=== PATIENT | male | born 1935 | race Caucasian/White ===

== ENCOUNTER 2017-08-27 10:16 | Inpatient (IN) | payer MEDICARE ==
[~2017-08-27] VITALS: Ht 182.9 cm; Wt 81.6 kg
[2017-08-27] VITALS (14 sets, daily range): BP systolic 85–137; BP diastolic 53–95
[2017-08-27] MEDS: ceFAZolin sod 1 GM in D5W 55 ML IVPB SCH ×2 (06:00→14:00)
[2017-08-27] MEDS ORDERED: NKM (12:47)
[2017-08-27] MEDS ORDERED: LR 1000ml 1,000 ML IVLG SCH (13:47)
--- NOTE | 2017-08-27 13:47 | Anethesia Preoperative Eval ---
Anesthesia Pre-op PMH/ROS General Date of Evaluation: Aug 27, 2017 Time of Evaluation: 14:11 Anesthesiologist: Tay ASA Score: ASA 3 Mallampati Score Class I : Soft palate, uvula, fauces, pillars visible Class II: Soft palate, uvula, fauces visible Class III: Soft palate, base of uvula visible Class IV: Only hard plate visible Mallampati Classification: Class II Surgeon: Lisa Diagnosis: Prostate CA Surgical Procedure: TURP, Lithotripsy Anesthesia History: none Family History: no anesthesia problems Allergies: Coded Allergies: No Known Allergies (Unverified , 08/27/17) Medications: see eMAR Past Medical History Cardiovascular: Reports: HTN, arrhythmia - Bradycardia Gastrointestinal/Genitourinary: Reports: other - Prostate CA, Renolithiasis Anesthesia Pre-op Phys. Exam Physician Exam Last Vital Signs Date Time Temp Pulse Resp B/P (MAP) Pulse Ox O2 Delivery O2 Flow Rate FiO2 08/27/17 12:49 97.0 39 18 136/59 98 Room Air Constitutional: NAD Neurologic: CN 2-12 intact Cardiovascular: RRR Respiratory: CTA Gastrointestinal: S/NT/ND Airway Exam Mallampati Score: Class II MO: full ROM: full Teeth: missing, intact, other - States None Loose Dentures: lower Anesthesia Pre-op A/P Risk Assessment & Plan Assessment: ASA 3 Plan: GA, BIS, GlideScope Status Change Before Surgery: No Pre-Antibiotics Dru Grams Ancef, 80 Mg Gentamicin IV Given Within 1 Hr of Incision: Yes Time Given: 14:26 Paulino Cross MD Aug 27, 2017 13:47
--- NOTE | 2017-08-27 13:49 | Immediate Post-Op Evaluation ---
Immediate Post-Op Evalulation Immediate Post-Op Evalulation Procedure: TURP, Lithotripsy Date of Evaluation: Aug 27, 2017 IV Fluids: 1300 LR Blood Products: 0 Estimated Blood Loss: 500 Urinary Output: 1400 Blood Pressure Systolic: 98 Blood Pressure Diastolic: 40 Pulse Rate: 62 Respiratory Rate: 16 O2 Sat by Pulse Oximetry: 98 Temperature (Fahrenheit): 98.2 Pain Score (1-10): 2 Nausea: No Vomiting: No Complications 0 Patient Status: awake, reacts, patent, extubated, none Hydration Status: adequate Dru Grams Ancef, 80 Mg Gentamicin IV Given Within 1 Hr of Incision: Yes Time Given: 14:26 Paulino Cross MD Aug 27, 2017 13:49
[2017-08-27] MEDS ORDERED: Sugammadex Sodium 200mg/2ml vial IV ONE (14:00)
[2017-08-27] MEDS ORDERED: Lidocaine 1% MPF 10mg/ml 5ml ONE (14:00)
[2017-08-27] MEDS ORDERED: oxyCODONE HCL/Acetaminophen 5/325mg ORAL PRN (14:00)
[2017-08-27] MEDS ORDERED: LR 1000ml ONE (14:00)
[2017-08-27] MEDS ORDERED: NS Irrig 4000ml IRRIG ONE (14:00)
[2017-08-27] MEDS ORDERED: Hydromorphone 0.5mg/0.5ml inj IVP PRN ×2 (14:00→21:00)
[2017-08-27] MEDS ORDERED: Dexamethasone 4mg/ml vial ONE (14:00)
[2017-08-27] MEDS ORDERED: Zemuron 50mg/5ml Inj IV ONE (14:00)
[2017-08-27] MEDS ORDERED: Norco 7.5mg/325mg tab ORAL PRN (14:00)
[2017-08-27] MEDS ORDERED: Labetalol 5mg/ml 20ml vial IV PRN (14:00)
[2017-08-27] MEDS ORDERED: fentaNYL 100 mcg/2 mL IV ONE (14:00)
[2017-08-27] MEDS ORDERED: NS Irrig 2000ml IRRIG ONE (14:00)
[2017-08-27] MEDS ORDERED: Glycopyrrolate 0.2mg/ml 1ml Vial ONE (14:00)
[2017-08-27] MEDS ORDERED: DiphenhydrAMINE 50mg/ml Inj IVP PRN (14:00)
[2017-08-27] MEDS ORDERED: Acetaminophen (Non formulary) 100 ML IV ONE (14:00)
[2017-08-27] MEDS ORDERED: Metoclopramide 10mg/2ml Inj IVP PRN (14:00)
[2017-08-27] MEDS ORDERED: Midazolam 2mg/2ml Inj ONE (14:00)
[2017-08-27] MEDS ORDERED: fentaNYL 100 mcg/2 mL IV PRN (14:00)
[2017-08-27] MEDS ORDERED: Norco 5mg/325mg tab ORAL PRN ×2 (14:00→21:00)
[2017-08-27] MEDS ORDERED: Atropine Inj 1mg/10ml Syr IV PRN (14:00)
[2017-08-27] MEDS ORDERED: Ketorolac 30mg Inj IV PRN ×2 (14:00)
[2017-08-27] MEDS ORDERED: Propofol 200mg/20ml IV ONE (14:00)
[2017-08-27] MEDS ORDERED: Midazolam 2mg/2ml Inj IVP PRN (14:00)
[2017-08-27] MEDS ORDERED: LORazepam Inj 2mg/ml 1ml IV PRN (14:00)
--- NOTE | 2017-08-27 14:22 | Pre-Procedure Note/Attestation ---
Pre-Procedure Note/Attestation Complete Prior to Procedure Planned Procedure: not applicable Procedure Narrative: TURP CYSTO LOPAXY Indications for Procedure Pre-Operative Diagnosis: bladder stone BPH Attestation I attest that I discussed the nature of the procedure; its benefits; risks and complications; and alternatives (and the risks and benefits of such alternatives ), prior to the procedure, with the patient (or the patient's legal medical field representative). I attest that, if there was a reasonable possibility of needing a blood transfusion, the patient (or the patient's legal medical field representative) was given the [facility] standardized written summary, pursuant to the Faizan [place] Blood Safety Act ([place] Health and Safety Code # 1645, as amended). I attest that I re-evaluated the patient just prior to the surgery and that there has been no change in the patient's H&P, except as documented below: Jesus Manuel Gonzalez MD Aug 27, 2017 14:22
--- NOTE | 2017-08-27 14:23 | Brief Operative Note ---
Immediate Post Operative Note Operative Note Pre-op Diagnosis: bladder stone BPH Procedure: TURP Cystolopaxy Post-op Diagnosis: same Post-op Diagnosis: same as pre-op Surgeon: Capo Gonzalez Anesthesia: general Specimen: yes Complications: none Condition: stable Fluids: 1000 Estimated Blood Loss: minimal Implant(s) used?: No Jesus Manuel Gnozalez MD Aug 27, 2017 14:23
[2017-08-27 19:45] LABS: MEAN CORPUSCULAR HEMOGLOBIN 30.3 PG (27.0-31.0); MEAN CORPUSCULAR HGB CONC 30.6 G/DL (32.0-36.0); MEAN CORPUSCULAR VOLUME 99 FL (80-99); MEAN PLATELET VOLUME 9.1 FL (6.5-10.1); PLATELET COUNT 254 K/UL (150-450); RED BLOOD COUNT 3.94 M/UL (4.70-6.10); RED CELL DISTRIBUTION WIDTH 13.1 % (11.6-14.8)
[2017-08-27 19:47] LABS: ANION GAP 10 mmol/L (5-15); CALCIUM 8.4 MG/DL (8.5-10.1); CARBON DIOXIDE 24 MMOL/L (21-32); CHLORIDE 106 MMOL/L (98-107); CREATININE 1.1 MG/DL (0.55-1.30); POTASSIUM 3.9 MMOL/L (3.5-5.1); SODIUM 140 MMOL/L (136-145)
[2017-08-27 21:35] LABS: ANISOCYTOSIS 1+; BAND NEUTROPHILS % (MANUAL) 0 % (0-8); BASOPHILS % (MANUAL) 0 % (0-2); EOSINOPHILS % (MANUAL) 0 % (0-3); HYPOCHROMASIA 1+; LYMPHOCYTES % (MANUAL) 7 % (20-45); NEUTROPHILS % (MANUAL) 89 % (45-75); PLATELET ESTIMATE ADEQUATE; PLATELET MORPHOLOGY NORMAL; TOTAL CELLS COUNTED 100
[2017-08-27] MEDS ORDERED: ceFAZolin sod 2 GM in D5W 110 ML IV SCH (22:00)
[2017-08-28] MEDS ORDERED: Piperacillin/Tazobactam 3.375 GM in D5W 110 ML IVPB SCH ×2
[2017-08-28] MEDS: Zoysn 3.37gm in D5W 55ml IVPB SCH ×4 (00:12→22:00)
[2017-08-28] MEDS: D5 1/2NS w/KCl 20mEq 1,000 ML IV SCH ×2 (00:13→08:00)
[2017-08-28] MEDS: Vancomycin 1gm in D5W 275ml IVPB SCH ×3 (00:14→22:06)
[2017-08-28 00:30] VITALS: BP 120/71
[2017-08-28 04:00] VITALS: BP 104/62
[2017-08-28 09:00] VITALS: BP 106/44
[2017-08-28 10:40] LABS: MEAN CORPUSCULAR HEMOGLOBIN 32.4 PG (27.0-31.0); MEAN CORPUSCULAR HGB CONC 33.2 G/DL (32.0-36.0); MEAN CORPUSCULAR VOLUME 97 FL (80-99); MEAN PLATELET VOLUME 9.3 FL (6.5-10.1); PLATELET COUNT 239 K/UL (150-450); RED BLOOD COUNT 3.37 M/UL (4.70-6.10); RED CELL DISTRIBUTION WIDTH 12.7 % (11.6-14.8); WHITE BLOOD COUNT 15.4 K/UL (4.8-10.8)
[2017-08-28 10:52] LABS: ANION GAP 8 mmol/L (5-15); CALCIUM 8.3 MG/DL (8.5-10.1); CARBON DIOXIDE 26 MMOL/L (21-32); CHLORIDE 101 MMOL/L (98-107); CREATININE 1.1 MG/DL (0.55-1.30); POTASSIUM 4.2 MMOL/L (3.5-5.1); SODIUM 135 MMOL/L (136-145)
[2017-08-28 11:21] LABS: BAND NEUTROPHILS % (MANUAL) 2 % (0-8); LYMPHOCYTES % (MANUAL) 8 % (20-45); NEUTROPHILS % (MANUAL) 85 % (45-75); TOTAL CELLS COUNTED 100
[2017-08-28 11:22] LABS: BASOPHILS % (MANUAL) 0 % (0-2); EOSINOPHILS % (MANUAL) 0 % (0-3); PLATELET ESTIMATE ADEQUATE; PLATELET MORPHOLOGY NORMAL
[2017-08-28 12:00] VITALS: BP 97/59
--- NOTE | 2017-08-28 12:38 | 48 Hour Post Anesthesia Eval ---
Post Anesthesia Evaluation Procedure: TURP, Lithotripsy Date of Evaluation: Aug 28, 2017 Time of Evaluation: 12:35 Blood Pressure Systolic: 97 0: 59 Pulse Rate: 62 Respiratory Rate: 18 Temperature (Fahrenheit): 98.2 O2 Sat by Pulse Oximetry: 99 Airway: patent Nausea: No Vomiting: No Pain Intensity: 1 Hydration Status: adequate Cardiopulmonary Status: Stable Mental Status/LOC: patient returned to baseline Follow-up Care/Observations: As per surgery Post-Anesthesia Complications: No anesthetic complication Follow-up care needed: N/A ARRON FRAZIER M.D. Aug 28, 2017 12:38
[2017-08-28 16:00] VITALS: BP 98/57
[2017-08-28] MEDS: Docusate 100mg cap ORAL SCH (17:33)
--- NOTE | 2017-08-28 17:49 | Diagnostic Imaging Report ---
INDICATION: Status post cystoscopy and lithotripsy. History of prostate carcinoma TECHNIQUE: No oral contrast, per urogram protocol. Precontrast spiral acquisition obtained through the abdomen and pelvis. IV administration nonionic contrast. Multiphasic spiral acquisitions obtained through the chest, abdomen, and pelvis Multiplanar reconstructions were generated. Total dose length product 3616.07 mGycm. CTDIvol(s) 17.08,16.32,17.31,17.08 mGy. Radiation dose was minimized using automated exposure control COMPARISON: none FINDINGS: Urinary tract: No renal calculi are seen on either side. There is bilateral nonspecific perinephric fat stranding. Subcentimeter low-attenuation renal lesions are seen on the left which are too small to characterize. No definite solid renal mass demonstrated. The renal collecting systems are unremarkable. The ureters are unremarkable. The bladder is nondistended, contains a very large Orta balloon. The bladder kumar appear thickened, although this could in part be an artifact of under distention. A crescentic focus of gas seen within the anterior inferior bladder wall. This measures 3 cm transverse by 2.4 cm craniocaudad by approximately 3 mm thick. There is a calcific density immediately adjacent to the shaft of the Orta catheter anteriorly and to the left, which measures 13 mm long axis dimension. It is unclear whether this is within the bladder lumen, bladder wall, or prostate parenchyma, although suspect that it is trapped within the bladder mucosal folds. Immediately anterior to the shaft of the Orta balloon at the prostate/bladder junction, there is a very subtle area of slightly lower attenuation. There is some infiltration of the perivesical fat at the anterior aspect of the bladder. The prostate is enlarged, measures 5.8 cm AP by 5.9 cm transverse by approximately 6.5 cm craniocaudad. The seminal vesicles appear unremarkable. There is bilateral pelvic lymphadenopathy. Largest left iliac chain node measures 2.4 cm in diameter. There is a right iliac chain node which measures 23 mm in diameter, and is hypoattenuating, suggestive of necrosis. No retroperitoneal mass or adenopathy demonstrated. Other abdomen and pelvis: The liver demonstrates a 17 mm cyst in segment one. It also demonstrates a few subcentimeter low-attenuation lesions which are too small to characterize. No definite solid liver mass. The gallbladder, bile ducts are unremarkable. The pancreas demonstrates a tiny 5 mm low-attenuation lesion in the pancreatic head, image 62 series 11, which may represent the terminus of the common bile duct but this cannot be stated for certain. The spleen, adrenals are unremarkable The appendix is not definitely identified, but no findings to suggest acute appendicitis are demonstrated. There is colonic diverticulosis. No evidence of diverticulitis. No small bowel distention. No free or loculated intraperitoneal air or fluid is evident. Distal esophagus, stomach, duodenum are unremarkable. Chest: 4 mm lesion is seen in the medial right middle lobe and a 2 mm lesion is seen in the lateral right middle lobe, both image 12 series 7. 2 pleural based masses are seen along the right major fissure, larger measuring 9 mm, adjacent smaller measuring 5 mm. Focus of pleural thickening seen posteromedially in the left upper lobe, image 10 series 9. 8 mm nodule seen in the posteromedial left upper lobe abutting the mediastinum, series 9 image 35. Ill-defined 7 mm nodule seen in the anterior inferior left lower lobe, image 71 series 9. Lobulated 12 mm nodule posterior inferior left lower lobe, image 69 series 9. There is some posterior compressive atelectasis at the left lung base, as well as trace left pleural fluid. The heart is upper limits of normal in size. The ascending thoracic aortic is ectatic, measuring 4.3 cm in diameter. There is mediastinal lymphadenopathy, with 2 adjacent enlarged subcarinal nodes, largest measuring 2.1 cm in diameter, both demonstrating low attenuation centers suggestive of necrosis. Esophagus is unremarkable. The thyroid is unremarkable. No axillary or chest wall mass or adenopathy demonstrated. There is a 6 mm other subcutaneous nodule in the right chest wall, image 56 series 8, which is at the level of the nipple, probably represents a lymph node. No definite osteolytic or osteoblastic lesion demonstrated. There is degenerative spondylosis. No acute bony abnormality demonstrated. IMPRESSION: Abnormal bladder as described, with wall thickening, 13 mm calcification, and an unusual air collection in the anterior bladder wall. There is a Orta catheter with a large balloon decompressing the bladder. The gas collection may be residua of recent cystoscopic intervention. Correlation with surgical findings and procedure recommended. There is also a 13 mm calcification which is either in the bladder lumen, in the urethral lumen, or within the bladder wall. Likewise recommend correlation with cystoscopic findings Subtle focal area of low attenuation anterior to the Orta shaft at the base of the bladder. Of uncertain significance. Possibility of early intramural abscess should be considered Enlarged prostate Nonspecific infiltration of the anterior perivesical fat. Could indicate inflammation or tumor Pelvic lymphadenopathy. Low-attenuation right iliac chain node is likely necrotic No significant renal abnormality. Subcentimeter low-attenuation left renal lesions most likely represent benign cortical cysts, and no further follow-up necessary 5 mm low-attenuation lesion in the pancreatic head. Suspect that this represents the terminus of the common bile duct, but a pancreatic cystic lesion cannot be excluded. Consider follow-up pancreatic MRI if clinically indicated Caudate lobe liver cyst. Subcentimeter low-attenuation liver lesions, too small to characterize, most likely benign cysts or bile hamartomas. No further follow-up necessary Multiple lung nodules as detailed above. As most of these appear to be related to the pleura, these may all be postinflammatory, but neoplastic etiology of many of these cannot be ruled out Mediastinal lymphadenopathy, possibly neoplastic. 2 largest nodes in the subcarinal region have low-attenuation centers suggestive of necrosis Degenerative spondylosis The CT scanner at [facility] is accredited by the [employer] and the scans are performed using protocols designed to limit radiation exposure to as low as reasonably achievable to attain images of sufficient resolution adequate for diagnostic evaluation.
[2017-08-28 21:03] VITALS: BP 100/55
--- NOTE | 2017-08-28 23:47 | Operative Note - Dictated ---
DATE OF OPERATION: 08/27/2017 PREOPERATIVE DIAGNOSES: 1. Urinary retention. 2. Bladder stones. 3. Recurrent urinary tract infection. 4. Prostate cancer. POSTOPERATIVE DIAGNOSES: 1. Urinary retention. 2. Bladder stones. 3. Recurrent urinary tract infection. 4. Prostate cancer. OPERATIONS: Transurethral resection of the prostate and cystolitholapaxy of the large bladder stones. SURGEON: Jesus Manuel Gonzalez M.D. ANESTHESIA: General. FINDINGS: Two large bladder stones occupying the whole surface of the bladder and increased lesion in the lateral lobes of the prostate. INDICATIONS FOR SURGERY: The patient was referred to me for urinary retention, hematuria, and pain. He passed voiding trial. However, during the cystoscopy, I found that he has 2 large bladder stones and severely enlarged prostate. His PSA was in 200s and he was found to have bony lytic lesions on the x-rays suggesting there was also a history of prostate cancer. Treatment options were explained to him in great length including all potential complications. He understands the strategy, that we will remove the bladder stones first and do TURP diagnostic procedure also done to help him urinate better. He will follow up with the diagnosis of prostate cancer radiation. The patient understands the nature of the procedure and signed a consent. DESCRIPTION OF PROCEDURE: The patient was brought to the operating room, placed in lithotomy position, and prepped and draped in standard fashion. Under general anesthesia, cystoscope 22-Khmer was introduced and using 1000 micron fiber, stones were fragmented into small pieces within 2.5 hours of total time of laser, that is how big the stones were. Small stone fragments after that were removed with Jagruti evacuator for full examination. After that, using resectoscope and bipolar TURP, the prostate was resected approximately 70% all the way to the capsule region and the lateral lobes all the way to the verumontanum. All the chips were evacuated. The bladder was carefully inspected. There was no evidence of residual stones or tumor. The patient tolerated the procedure well. A Orta catheter was placed. CBI was started. Sponge count and instrument count was correct. Jesus Manuel Gonzalez M.D. DR: MARIO ALBERTO JOB#: [id number] CC:
[2017-08-29 00:17] VITALS: BP 106/61
[2017-08-29] MEDS: Zoysn 3.37gm in D5W 55ml IVPB SCH ×3 (01:09→14:39)
[2017-08-29 04:43] VITALS: BP 109/61
[2017-08-29 08:17] VITALS: BP 114/62
[2017-08-29] MEDS: Docusate 100mg cap ORAL SCH ×2 (08:55→18:00)
[2017-08-29 10:37] LABS: BASOPHILS % (AUTO) 0.6 % (0.0-2.0); EOSINOPHILS % (AUTO) 1.2 % (0.0-3.0); LYMPHOCYTES % (AUTO) 9.9 % (20.0-45.0); MEAN CORPUSCULAR HEMOGLOBIN 31.2 PG (27.0-31.0); MEAN CORPUSCULAR HGB CONC 31.8 G/DL (32.0-36.0); MEAN CORPUSCULAR VOLUME 98 FL (80-99); MEAN PLATELET VOLUME 9.9 FL (6.5-10.1); MONOCYTES % (AUTO) 9.4 % (1.0-10.0); NEUTROPHILS % (AUTO) 78.9 % (45.0-75.0); PLATELET COUNT 271 K/UL (150-450); RED BLOOD COUNT 3.58 M/UL (4.70-6.10); RED CELL DISTRIBUTION WIDTH 13.3 % (11.6-14.8); WHITE BLOOD COUNT 13.6 K/UL (4.8-10.8)
[2017-08-29] MEDS: Vancomycin 1gm in D5W 275ml IVPB SCH (11:21)
[2017-08-29 11:56] VITALS: BP 90/50
[2017-08-29] MEDS ORDERED: Bisacodyl EC 5mg tab ORAL PRN (13:45)
[2017-08-29] MEDS ORDERED: NS Irrig 4000ml IRRIG ONE ×2 (15:11)
[2017-08-29] MEDS ORDERED: Tubing IV Secondary IV ONE (15:11)
[2017-08-29 16:00] VITALS: BP 99/54
--- NOTE | 2017-08-29 17:07 | Cardiology Report ---
APPROVED REPORT EKG Measurement Heart [id number] MD [id number] Marked sinus bradycardia Abnormal ECG
[2017-08-29] MEDS: Levofloxacin 500mg tab ORAL SCH (20:00)
[2017-08-30 07:05] LABS: BASOPHILS % (AUTO) 0.8 % (0.0-2.0); EOSINOPHILS % (AUTO) 2.2 % (0.0-3.0); LYMPHOCYTES % (AUTO) 11.9 % (20.0-45.0); MEAN CORPUSCULAR HEMOGLOBIN 31.8 PG (27.0-31.0); MEAN CORPUSCULAR HGB CONC 32.6 G/DL (32.0-36.0); MEAN CORPUSCULAR VOLUME 98 FL (80-99); MEAN PLATELET VOLUME 9.6 FL (6.5-10.1); MONOCYTES % (AUTO) 9.1 % (1.0-10.0); NEUTROPHILS % (AUTO) 76.1 % (45.0-75.0); PLATELET COUNT 265 K/UL (150-450); RED BLOOD COUNT 3.29 M/UL (4.70-6.10); RED CELL DISTRIBUTION WIDTH 13.3 % (11.6-14.8); WHITE BLOOD COUNT 9.5 K/UL (4.8-10.8)
[2017-08-30 07:39] LABS: ANION GAP 8 mmol/L (5-15); CALCIUM 9.2 MG/DL (8.5-10.1); CARBON DIOXIDE 28 MMOL/L (21-32); CHLORIDE 102 MMOL/L (98-107); CREATININE 1.1 MG/DL (0.55-1.30); POTASSIUM 3.4 MMOL/L (3.5-5.1); SODIUM 138 MMOL/L (136-145)
[2017-08-30 08:00] VITALS: BP 114/74
[2017-08-30] MEDS: Docusate 100mg cap ORAL SCH (08:54)
[2017-08-30] MEDS: Levofloxacin 500mg tab ORAL SCH (08:54)
--- NOTE | 2017-08-30 10:15 | Diagnostic Imaging Report ---
Indication: Prostate carcinoma Technique: Administration of 99m technetium MDP was delayed due to consent issues. At the time of maximum administration, the original dose had isypbzq33.5 mCi. According to the technologist, an additional vial of technetium MDP was needed to achieve the proper dose. However, instead of an additional dose of MDP, a 7 mCi dose of 99M technetium was inadvertently administered instead. Whole-body and spot images were then obtained Comparison: Reference made to CT scan dated 08/28/2017 Findings: Tracer activity from the mebrofenin administration is seen in the gallbladder, small bowel, and large bowel. A sizable focus of increased activity is seen in the left anterolateral sixth rib. In retrospect, this is visible as an area of sclerosis on recent CT scan. A few scattered foci of increased activity are seen in other ribs, mostly on the right with bilateral, equivocally evident as subtle areas of sclerosis on the recent CT scan. Multiple foci of increased activity are seen in numerous pedicles of the thoracic and lumbar spine, equivocally visible in some cases as subtle foci of sclerosis within the pedicles on the recent CT scan. Foci of increased activity are seen in the pelvis, the largest in the left acetabulum and posterior ischium, and other scattered foci bilaterally. These are not visible on the recent CT, even in retrospect. A single small focus of increased activity is seen in the left proximal femur. A focus of increased activity is seen in the right humeral neck, excluded from the recent imaging volume on CT. Other bilateral symmetric foci of increased activity within the shoulders are probably on the basis of degenerative change. A few small foci of increased activity are seen in the region of the maxilla and mandible. Suspect these are on the basis of dental disease Normal renal and bladder activity are demonstrated. Impression: Multiple foci of osseous activity, as described, consistent with metastatic prostate carcinoma Note activity within gallbladder, large and small bowel, due to inadvertent administration of a dose of mebrofenin. The misadministration was discussed with the patient's attending physician, with the patient, and an incident report was filed Findings were discussed by phone with Dr. Gonzalez
[2017-08-30] MEDS ORDERED: COLACE100 MG ORAL (11:14)
[2017-08-30] MEDS ORDERED: LEVAQUIN250 M1 ORAL (11:14)
[2017-08-30] MEDS ORDERED: ACETAMINOPHEN-1 EAC1 ORAL (11:15)
[2017-08-30] MEDS ORDERED: NS Irrig 4000ml IRRIG ONE (11:39)
--- NOTE | 2017-08-30 15:28 | Discharge Summary ---
Discharge Summary Hospital Course Date of Admission Aug 27, 2017 at 11:55 Date of Discharge Aug 30, 2017 at 11:40 Admitting Diagnosis HPI Nadeen Concepcion is a 82 year old male who was admitted on Aug 27, 2017 at 11:55 for PAIN Hospital Course [id number] Discharge Discharge Disposition Patient was discharged to Home (01) Discharge Diagnoses: Harriet Avendaño NP Aug 30, 2017 15:28
--- NOTE | 2017-08-31 08:32 | Discharge Summary 2 SIG ---
DATE OF ADMISSION: 08/27/2017 DATE OF DISCHARGE: 08/30/2017 BRIEF HOSPITAL COURSE: The patient is an 82-year-old male with history of prostate cancer and recurrent urinary tract infection, who was having urinary retention and has bladder stones, was referred to urologist for evaluation of urinary retention, hematuria, and pain. He passed voiding trial, however, during the cystoscopy, he was found to have two large bladder stones and severely enlarged prostate. PSA was in the 200s. He was found to have bony lytic lesions in the x-ray suggestive of history of prostate cancer. He was admitted on 08/27/2017 and underwent TURP and cystolitholapaxy of large bladder stones. He tolerated procedure well. Postoperatively, Orta catheter was inserted and continuous bladder irrigation was done. He was admitted on medical/surgical and was given Zosyn and vancomycin. He was encouraged use of incentive spirometry and underwent physical therapy. Chest CT done showed abnormal bladder as described with wall thickening, 13 mm calcification, and an unusual air collection in the anterior bladder wall. Orta catheter with a large balloon decompressing the bladder, thus collection may also be residual of recent cystoscopic intervention. Bone scan was done, which revealed multiple foci of osseous activity consistent with metastatic prostate carcinoma. The patient was eventually cleared for discharge home. To follow-up with urology for removal of stent. FINAL DIAGNOSES: 1. Urinary retention due to bladder stones. 2. Recurrent urinary tract infection. 3. Prostate cancer with mets. DISCHARGE DISPOSITION: The patient was discharged home. DISCHARGE MEDICATIONS: Refer to medication list. Continue with oral levofloxacin 250 mg daily for one week. Continue with acetaminophen with codeine, Tylenol No. 3, and Colace p.r.n. DISCHARGE INSTRUCTIONS: Follow up with PMD in a week for removal of stent. Jesus Manuel Gonzalez M.D. I have been assigned to dictate discharge summary on this account and I was not involved in the patient's management. Harriet Avendaño N.P. DR: LILI JOB#: [id number] CC: ISREAL
== END 2017-08-30 11:40 | disposition home or self-care (01) | DRG 666 ==
LOC: SDSOVERFLO 11:55 → 3E 17:54
PROC: 0VB08ZZ Excision of Prostate, Via Natural or Artificial Opening Endoscopic (ICD-10-PCS; principal; 2017-08-27 14:00)
PROC: 0TCB8ZZ Extirpation of Matter from Bladder, Via Natural or Artificial Opening Endoscopic (ICD-10-PCS; principal; 2017-08-27 14:00)
DX: N21.0 Calculus in bladder (principal); N39.0 Urinary tract infection, site not specified; C79.51 Secondary malignant neoplasm of bone; C61 Malignant neoplasm of prostate; I44.1 Atrioventricular block, second degree; N13.8 Other obstructive and reflux uropathy; R33.8 Other retention of urine; N40.1 Benign prostatic hyperplasia with lower urinary tract symptoms; F17.200 Nicotine dependence, unspecified, uncomplicated
CPT/HCPCS: 36415; 71260; 74177; 78306; 80048; 80202; 85007; 85025; 93005; 94003; 94150; J2250; J2405; J8499

== ENCOUNTER 2017-08-31 19:39 | Emergency (ER) | payer SELFPAY ==
[~2017-08-31] VITALS: Ht 182.9 cm; Wt 81.6 kg
[~2017-08-31 19:39] MED LIST: ACETAMINOPHEN-1 EAC1 ORAL; COLACE100 MG ORAL; LEVAQUIN250 M1 ORAL; NKM
[2017-08-31 20:05] VITALS: BP 110/68
[2017-08-31 20:14] VITALS: BP 112/69
[2017-08-31 20:45] LABS: APPEARANCE,URINE CLOUDY; KETONES,URINE 1+ (NEGATIVE); LEUKOCYTE ESTERASE ,URINE 2+ (NEGATIVE); NITRITE,URINE NEGATIVE (NEGATIVE); PH,URINE 6 (4.5-8.0); PROTEIN,URINE 4+ (NEGATIVE); UROBILINOGEN,URINE NORMAL MG/DL (0.0-1.0)
[2017-08-31 20:53] LABS: BACTERIA,URINE MODERATE /HPF; RBC,URINE TNTC /HPF (0 - 0); SQUAMOUS EPITHELIAL CELL,UR OCCASIONAL /LPF (NONE/OCC)
--- NOTE | 2017-08-31 22:07 | Emergency Room Report ---
History of Present Illness General Chief Complaint: Male Urogenital Problems Source: Patient, Medical Record Present Illness HPI 82YOM walk-in with hematuria, asymptomatic, No associated abdominal pain, dysuria, vomiting, flank pain Recently had TURP by Dr Taylor, urologist Is supposed to be on levo/vanc/flomax but patient endorses non-compliance Allergies: Coded Allergies: No Known Allergies (Unverified , 08/27/17) Patient History Past Medical History: other - bph Past Surgical History: other - turp Pertinent Family History: none Social History: Denies: smoking, alcohol use, drug use Immunizations: UTD Reviewed Nursing Documentation: PMH: Agreed, PSxH: Agreed Nursing Documentation-PMH Hx Cardiac Problems: No - irregular heartbeat Hx Cancer: Yes Hx Gastrointestinal Problems: No Hx Neurological Problems: No Review of Systems All Other Systems: negative except mentioned in HPI Physical Exam Vital Signs Date Time Temp Pulse Resp B/P (MAP) Pulse Ox O2 Delivery O2 Flow Rate FiO2 08/31/17 19:47 98.1 74 18 105/63 98 08/31/17 20:05 Room Air Sp02 EP Interpretation: reviewed, normal General Appearance: normal inspection, well appearing, no apparent distress, alert, GCS 15, non-toxic Head: normocephalic, atraumatic Eyes: bilateral eye PERRL, bilateral eye EOMI ENT: normal ENT inspection, hearing grossly normal, normal pharynx, no angioedema, normal voice, TMs + canals normal, uvula midline, moist mucus membranes Neck: normal inspection, full range of motion, supple, thyroid normal, no meningismus, no bony tend Respiratory: normal inspection, lungs clear, normal breath sounds, no rhonchi, no respiratory distress, no retraction, no accessory muscle use, no wheezing, speaking full sentences Cardiovascular #1: regular rate, rhythm, no edema, no JVD, normal capillary refill Gastrointestinal: normal inspection, normal bowel sounds, non tender, soft, no mass, no peritonitis, non-distended, no guarding, no hernia, no pulsatile mass Genitourinary: no CVA tenderness Musculoskeletal: normal inspection, back normal, normal range of motion, no calf tenderness, pelvis stable, Willow's Sign negative Neurologic: normal inspection, alert, oriented x3, responsive, customer service engineer III-XII nml as tested, motor strength/tone normal, cerebellar normal, normal gait, speech normal Psychiatric: normal inspection, judgement/insight normal, mood/affect normal, no suicidal/homicidal ideation, no delusions Skin: normal inspection, normal color, no rash Lymphatic: normal inspection, no adenopathy Medical Decision Making Diagnostic Impression: Primary Impression: Abnormal urogenital findings Additional Impressions: Hematuria Qualified Codes: R31.9 - Hematuria, unspecified UTI (urinary tract infection) Qualified Codes: N30.01 - Acute cystitis with hematuria ER Course UA with hematuria and bacteria Dr. Taylor requested urine culture to be sent to check for sensitivity already on Levaquin and vancomycin Encouraged compliance Signs stable, afebrile Dr. Taylor saw patient in ER non-Septic appearing Discharge ER course: Patient has remained stable during ED stay. Patient is to be discharged to home. Patient is instructed to follow up with Dr Taylor as recommended Strict return precautions discussed with patient such as fever, chills, worsening/severe pain, nausea, vomiting, which may indicate severe illness. Patient verbalizes understanding and agrees with plan. Please note that this Emergency Department Report was dictated using [employer] technicians technology software, occasionally this can lead to erroneous entry secondary to interpretation by the dictation equipment Last Vital Signs Date Time Temp Pulse Resp B/P (MAP) Pulse Ox O2 Delivery O2 Flow Rate FiO2 08/31/17 20:14 98.1 89 16 112/69 98 Room Air Status: improved Disposition: HOME, SELF-CARE Condition: Improved Referrals: NON PHYSICIAN (PCP) Patient Instructions: Hematuria, Adult Additional Instructions: - Complete antibiotics at home as prescribed - Take flomax as recommended by ASCENCION Joyner M.D. Aug 31, 2017 22:07
== END 2017-08-31 20:14 | disposition home or self-care (01) ==
LOC: EMR 20:09
DX: N30.01 Acute cystitis with hematuria (principal); N40.0 Benign prostatic hyperplasia without lower urinary tract symptoms
CPT/HCPCS: 81003; 87086; 99283

== ENCOUNTER 2018-06-18 16:42 | Inpatient (IN) | payer MEDICARE ==
[~2018-06-18] VITALS: Ht 182.9 cm; Wt 74.8 kg
[2018-06-18 17:11] VITALS: BP 174/55
--- NOTE | 2018-06-18 17:26 | Emergency Room Report ---
History of Present Illness General Chief Complaint: General Complaint Source: Patient, Family Member Present Illness HPI 83-year-old male, history of prostate cancer, status post prostatectomy last August, presenting with dysuria, hematuria, abdominal pain. Percent, patient only consented to having surgery, refused chemotherapy and radiation. Patient has had abdominal pain for the last few days, the last time he was able to have a full urination was this morning. Says that he has an urge to urinate. No fever no chills. No nausea no vomiting. Has otherwise been eating and drinking well. Lives at home and has a caregiver. Son states that the cancer has spread to his bones Allergies: Coded Allergies: No Known Allergies (Unverified , 08/27/17) Patient History Past Medical History: see triage record Past Surgical History: none Pertinent Family History: none Reviewed Nursing Documentation: PMH: Agreed; PSxH: Agreed Nursing Documentation-PMH Past Medical History: No History, Except For Hx Cardiac Problems: No - irregular heartbeat Hx Cancer: Yes - prostate Hx Gastrointestinal Problems: No Hx Neurological Problems: Yes - Dementia Review of Systems All Other Systems: negative except mentioned in HPI Physical Exam Vital Signs Date Time Temp Pulse Resp B/P (MAP) Pulse Ox O2 Delivery O2 Flow Rate FiO2 06/18/18 17:08 99.0 41 17 174/55 98 Room Air 99.0 Sp02 EP Interpretation: reviewed, normal General Appearance: alert, GCS 15, non-toxic, mild distress Head: normocephalic, atraumatic Eyes: bilateral eye normal inspection, bilateral eye PERRL, bilateral eye EOMI ENT: normal ENT inspection, normal pharynx, normal voice, moist mucus membranes Neck: normal inspection, full range of motion, supple Respiratory: normal inspection, lungs clear, normal breath sounds, no respiratory distress, no retraction, no wheezing, speaking full sentences, chest symmetrical Cardiovascular #1: normal inspection, regular rate, rhythm, no edema, normal capillary refill Cardiovascular #2: 2+ radial (R), 2+ radial (L) Gastrointestinal: other - Generalized abdominal pain, no guarding or rigidity, more in left lower quadrant as well as suprapubic region Genitourinary: no CVA tenderness Musculoskeletal: normal inspection, back normal, normal range of motion, non- tender Neurologic: normal inspection, alert, oriented x3, responsive, motor strength/ tone normal, sensory intact, normal gait, speech normal Psychiatric: normal inspection, judgement/insight normal, memory normal Skin: normal inspection, normal color, no rash, warm/dry, well hydrated, normal turgor Procedures Critical Care Time Critical Care Time 40 minutes of CC time 83-year-old male, presenting with generalized weakness, dysuria, also found to be bradycardic, requires very close cardiopulmonary monitoring Anticipate admission to Tele vs. [facility] CC time also includes review of labs, review of EMR, discussion with family and paperwork from SNF, d/w hospitalist CC could include dosing of pressors, additional Abx CC time does not include procedures Medical Decision Making Diagnostic Impression: Primary Impression: UTI (urinary tract infection) Additional Impressions: Bradycardia Renal insufficiency ER Course 83-year-old male, abdominal pain, dysuria and hematuria has a history of prostate cancer with metastases DDX: UTI pyelonephritis diverticulitis appendicitis urinary retention, metastasis Plan: Obtain labs, ua, EKG, CXR CT abdomen pelvis ER course: Patient's EKG noted to be bradycardic, second-degree AV block, Mobitz type I, family says that they are aware of this, he was told that he may need a pacemaker but patient refuses. 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 EKG Diagnostic Results EP Interpretation: Yes Rate: uriah Rhythm: Bradycardia, second-degree AV block Mobitz type I ST Segments: No acute changes ASA given to patient: No Rhythm Strip EP Interpretation: Yes Rate: 46 Rhythm: Bradycardia, second-degree AV block Mobitz type I Chest X-ray CXR: Ordered: Yes 1 view Indication: Abdominal pain EP interpretation: Yes Interpretation: No consolidation, no effusion, no PTX, no acute cardiopulmonary disease Impression: No acute disease Electronically signed by Jerad Her MD Laboratory Tests Test 06/18/18 18:00 06/18/18 18:48 Urine Color Pale yellow Urine Appearance Clear Urine pH 5 (4.5-8.0) Urine Specific [place] 1.015 (1.005-1.035) Urine Protein 1+ (NEGATIVE) H Urine Glucose (UA) Negative (NEGATIVE) Urine Ketones Negative (NEGATIVE) Urine Blood 2+ (NEGATIVE) H Urine Nitrite Negative (NEGATIVE) Urine Bilirubin Negative (NEGATIVE) Urine Urobilinogen Normal MG/DL (0.0-1.0) Urine Leukocyte Esterase 1+ (NEGATIVE) H Urine RBC 2-4 /HPF (0 - 0) H Urine WBC 2-4 /HPF (0 - 0) Urine Squamous Epithelial Cells Occasional /LPF Urine Bacteria Occasional /HPF (NONE) White Blood Count 10.2 K/UL (4.8-10.8) Red Blood Count 3.64 M/UL (4.70-6.10) L Hemoglobin 11.8 G/DL (14.2-18.0) L Hematocrit 33.6 % (42.0-52.0) L Mean Corpuscular Volume 92 FL (80-99) Mean Corpuscular Hemoglobin 32.3 PG (27.0-31.0) H Mean Corpuscular Hemoglobin Concent 35.0 G/DL (32.0-36.0) Red Cell Distribution Width 12.8 % (11.6-14.8) Platelet Count 276 K/UL (150-450) Mean Platelet Volume 7.7 FL (6.5-10.1) Neutrophils (%) (Auto) 78.4 % (45.0-75.0) H Lymphocytes (%) (Auto) 8.1 % (20.0-45.0) L Monocytes (%) (Auto) 11.1 % (1.0-10.0) H Eosinophils (%) (Auto) 1.0 % (0.0-3.0) Basophils (%) (Auto) 1.3 % (0.0-2.0) Prothrombin Time 10.9 SEC (9.30-11.50) Prothrombin Time INR 1.0 (0.9-1.1) PTT 30 SEC (23-33) Sodium Level 138 MMOL/L (136-145) Potassium Level 3.8 MMOL/L (3.5-5.1) Chloride Level 103 MMOL/L (98-107) Carbon Dioxide Level 22 MMOL/L (21-32) Anion Gap 13 mmol/L (5-15) Blood Urea Nitrogen 32 mg/dL (7-18) H Creatinine 1.8 MG/DL (0.55-1.30) H Estimate Glomerular Filtration Rate mL/min (>60) Glucose Level 111 MG/DL (74-106) H Lactic Acid Level 0.80 mmol/L (0.4-2.0) Calcium Level 9.0 MG/DL (8.5-10.1) Total Bilirubin 0.4 MG/DL (0.2-1.0) Aspartate Amino Transferase (AST) 292 U/L (15-37) H Alanine Aminotransferase (ALT) 25 U/L (12-78) Alkaline Phosphatase 314 U/L (46-116) H Total Protein 7.4 G/DL (6.4-8.2) Albumin 2.9 G/DL (3.4-5.0) L Globulin 4.5 g/dL Albumin/Globulin Ratio 0.6 (1.0-2.7) L CT/MRI/US Diagnostic Results CT/MRI/US Diagnostic Results : Imaging Test Ordered: CT ABDO PELVIS Impression CT ABDOMEN & PELVIS Without Contrast: Comparison is made to prior CT chest/abdomen/pelvis on 08/28/2017. Trace right pleural effusion and associated mild atelectasis. Mild cardiomegaly. Small liver cysts. Mild atrophy of the pancreas. No acute inflammation or mass. Mild bilateral hydroureteronephrosis. No obstructing stones identified. Nonspecific bilateral perinephric fat stranding. Infection is not excluded. Orta catheter and gas in an underdistended, thickened bladder. Please correlate with urinalysis to evaluate for cystitis. Component of neoplasm is not excluded. Calcifications along the base of the bladder may be associated with the prostate. Bladder stones are not excluded. Mild prostatomegaly. Diverticulosis without evidence of diverticulitis. Appendix is not visualized, but no CT evidence of acute appendicitis. No bowel obstruction or inflammation. Extensive sclerotic lesions throughout the pelvic bones, spine, ribs, and visualized sternum, compatible with osseous metastases, significantly worsened compared to prior exam. Atherosclerotic changes of the vasculature. No aneurysm. Bilateral fat-containing inguinal hernias. Last Vital Signs Date Time Temp Pulse Resp B/P (MAP) Pulse Ox O2 Delivery O2 Flow Rate FiO2 06/18/18 17:11 99.0 41 17 174/55 98 Room Air 99.0 Disposition: ADMITTED INPATIENT Condition: Serious Jerad Her M.D. Jun 18, 2018 17:26
[2018-06-18] MEDS ORDERED: Isovue-300 100ml vial INJ PRN (17:30)
[2018-06-18 18:32] LABS: APPEARANCE,URINE CLEAR; BILIRUBIN, URINE NEGATIVE (NEGATIVE); COLOR,URINE PALE YELLOW; GLUCOSE, URINE (UA) NEGATIVE (NEGATIVE); KETONES,URINE NEGATIVE (NEGATIVE); LEUKOCYTE ESTERASE ,URINE 1+ (NEGATIVE); NITRITE,URINE NEGATIVE (NEGATIVE); PH,URINE 5 (4.5-8.0); PROTEIN,URINE 1+ (NEGATIVE); UROBILINOGEN,URINE NORMAL MG/DL (0.0-1.0)
[2018-06-18] MEDS ORDERED: VITAMIN C500 M1 ORAL (19:05)
[2018-06-18 19:13] LABS: BASOPHILS % (AUTO) 1.3 % (0.0-2.0); HEMATOCRIT 33.6 % (42.0-52.0); HEMOGLOBIN 11.8 G/DL (14.2-18.0); LYMPHOCYTES % (AUTO) 8.1 % (20.0-45.0); MEAN CORPUSCULAR VOLUME 92 FL (80-99); MONOCYTES % (AUTO) 11.1 % (1.0-10.0); NEUTROPHILS % (AUTO) 78.4 % (45.0-75.0); PLATELET COUNT 276 K/UL (150-450); RED BLOOD COUNT 3.64 M/UL (4.70-6.10); RED CELL DISTRIBUTION WIDTH 12.8 % (11.6-14.8); WHITE BLOOD COUNT 10.2 K/UL (4.8-10.8)
[2018-06-18] MEDS ORDERED: cefTRIAXone 1 GM in NS 55 ML IVPB ONE (19:30)
[2018-06-18 19:35] LABS: ANION GAP 13 mmol/L (5-15); BLOOD UREA NITROGEN 32 mg/dL (7-18); CARBON DIOXIDE 22 MMOL/L (21-32); CHLORIDE 103 MMOL/L (98-107); CREATININE 1.8 MG/DL (0.55-1.30); POTASSIUM 3.8 MMOL/L (3.5-5.1); SODIUM 138 MMOL/L (136-145)
[2018-06-18 19:40] LABS: ALANINE AMINOTRANSFERASE 25 U/L (12-78); ALBUMIN 2.9 G/DL (3.4-5.0); ALBUMIN/GLOBULIN RATIO 0.6 (1.0-2.7); ALKALINE PHOSPHATASE 314 U/L (46-116); ASPARTATE AMINO TRANSFERASE 292 U/L (15-37); BILIRUBIN,TOTAL 0.4 MG/DL (0.2-1.0)
[2018-06-18 19:52] VITALS: BP 128/46
[2018-06-18 22:00] VITALS: BP 135/50
[2018-06-18 22:10] VITALS: BP 111/45
[2018-06-19] VITALS: BP 122/51
[2018-06-19 04:00] VITALS: BP 114/55
--- NOTE | 2018-06-19 06:23 | Consultation ---
Consult Note Consult Note Hematology/Oncology Consult DOS: 06/19/2018 REQ : Yury Murray RFC: Prostate cancer, metastatic ID 83-year-old male, history of prostate cancer, status post prostatectomy last August, presenting with dysuria, hematuria, abdominal pain. Percent, patient only consented to having surgery, refused chemotherapy and radiation. Patient has had abdominal pain for the last few days, the last time he was able to have a full urination was this morning. Says that he has an urge to urinate. No fever no chills. No nausea no vomiting. Has otherwise been eating and drinking well. Lives at home and has a caregiver. Son states that the cancer has spread to his bones Back in 08/2017 -- PSA was in the 200s. He was found to have bony lytic lesions in the x-ray suggestive of history of prostate cancer. He was admitted on 08/27/2017 and underwent TURP and cystolitholapaxy of large bladder stones. He has been seeing Dr. Gonzalez in the interim but has refused any treatment, has not been on lupron or casodex. Allergies: No Known Allergies (Unverified , 08/27/17) Patient History Past Medical History: see triage record Past Surgical History: none Pertinent Family History: none Reviewed Nursing Documentation: PMH: Agreed; PSxH: Agreed Nursing Documentation-PMH Past Medical History: No History, Except For Hx Cardiac Problems: No - irregular heartbeat Hx Cancer: Yes - prostate Hx Gastrointestinal Problems: No Hx Neurological Problems: Yes - Dementia Review of Systems All Other Systems: negative except mentioned in HPI 12 point ROS is otherwise negative ER Physical Exam - General Physical Exam Last 24 Hour Vital Signs Date Time Temp Pulse Resp B/P (MAP) Pulse Ox O2 Delivery O2 Flow Rate FiO2 06/19/18 04:00 49 06/19/18 04:00 98.2 55 20 114/55 (74) 99 98.2 06/19/18 00:00 50 06/19/18 00:00 98.2 64 20 122/51 (74) 97 98.2 06/18/18 23:26 Room Air 06/18/18 22:55 48 06/18/18 22:10 97.0 48 20 111/45 (67) 96 97.0 06/18/18 22:00 98.7 43 18 135/50 99 Room Air 98.7 06/18/18 22:00 [id number] 43 18 135/50 99 Room Air 209.7 06/18/18 19:52 99.1 39 18 128/46 98 Room Air 99.1 06/18/18 17:11 99.0 41 17 174/55 98 Room Air 99.0 06/18/18 17:08 99.0 41 17 174/55 98 Room Air 99.0 Sp02 EP Interpretation: reviewed, normal General Appearance: alert, GCS 15 Head: normocephalic, atraumatic Eyes: bilateral eye normal inspection, bilateral eye PERRL ENT: normal ENT inspection, normal pharynx Neck: normal inspection, full range of motion, supple Respiratory: normal inspection, lungs clear, normal breath sounds Cardiovascular #1: normal inspection, rrr Gastrointestinal: other - Generalized abdominal pain, no guarding or rigidity Genitourinary: no CVA tenderness Musculoskeletal: normal inspection Neurologic: normal inspection, alert, oriented x3 Skin: normal inspection, normal color Critical Care Time 40 minutes of CC time 83-year-old male, presenting with generalized weakness, dysuria, also found to be bradycardic, requires very close cardiopulmonary monitoring Anticipate admission to Tele vs. [facility] CC time also includes review of labs, review of EMR, discussion with family and paperwork from SNF, d/w hospitalist CC could include dosing of pressors, additional Abx CC time does not include procedures Assessment and Recs: # Prostate cancer with metastases -- extensive sclerotic lesions throughout the pelvic bones, spine, ribs, and visualized sternum, compatible with osseous metastases, significantly worsened compared to prior exam. 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 Laboratory Tests Test 06/18/18 18:00 06/18/18 18:48 Urine Color Pale yellow Urine Appearance Clear Urine pH 5 (4.5-8.0) Urine Specific [place] 1.015 (1.005-1.035) Urine Protein 1+ (NEGATIVE) H Urine Glucose (UA) Negative (NEGATIVE) Urine Ketones Negative (NEGATIVE) Urine Blood 2+ (NEGATIVE) H Urine Nitrite Negative (NEGATIVE) Urine Bilirubin Negative (NEGATIVE) Urine Urobilinogen Normal MG/DL (0.0-1.0) Urine Leukocyte Esterase 1+ (NEGATIVE) H Urine RBC 2-4 /HPF (0 - 0) H Urine WBC 2-4 /HPF (0 - 0) Urine Squamous Epithelial Cells Occasional /LPF Urine Bacteria Occasional /HPF (NONE) White Blood Count 10.2 K/UL (4.8-10.8) Red Blood Count 3.64 M/UL (4.70-6.10) L Hemoglobin 11.8 G/DL (14.2-18.0) L Hematocrit 33.6 % (42.0-52.0) L Mean Corpuscular Volume 92 FL (80-99) Mean Corpuscular Hemoglobin 32.3 PG (27.0-31.0) H Mean Corpuscular Hemoglobin Concent 35.0 G/DL (32.0-36.0) Red Cell Distribution Width 12.8 % (11.6-14.8) Platelet Count 276 K/UL (150-450) Mean Platelet Volume 7.7 FL (6.5-10.1) Neutrophils (%) (Auto) 78.4 % (45.0-75.0) H Lymphocytes (%) (Auto) 8.1 % (20.0-45.0) L Monocytes (%) (Auto) 11.1 % (1.0-10.0) H Eosinophils (%) (Auto) 1.0 % (0.0-3.0) Basophils (%) (Auto) 1.3 % (0.0-2.0) Prothrombin Time 10.9 SEC (9.30-11.50) Prothrombin Time INR 1.0 (0.9-1.1) PTT 30 SEC (23-33) Sodium Level 138 MMOL/L (136-145) Potassium Level 3.8 MMOL/L (3.5-5.1) Chloride Level 103 MMOL/L (98-107) Carbon Dioxide Level 22 MMOL/L (21-32) Anion Gap 13 mmol/L (5-15) Blood Urea Nitrogen 32 mg/dL (7-18) H Creatinine 1.8 MG/DL (0.55-1.30) H Estimate Glomerular Filtration Rate mL/min (>60) Glucose Level 111 MG/DL (74-106) H Lactic Acid Level 0.80 mmol/L (0.4-2.0) Calcium Level 9.0 MG/DL (8.5-10.1) Total Bilirubin 0.4 MG/DL (0.2-1.0) Aspartate Amino Transferase (AST) 292 U/L (15-37) H Alanine Aminotransferase (ALT) 25 U/L (12-78) Alkaline Phosphatase 314 U/L (46-116) H Total Protein 7.4 G/DL (6.4-8.2) Albumin 2.9 G/DL (3.4-5.0) L Globulin 4.5 g/dL Albumin/Globulin Ratio 0.6 (1.0-2.7) L CT/MRI/US Diagnostic Results CT/MRI/US Diagnostic Results : Imaging Test Ordered: CT ABDO PELVIS Impression CT ABDOMEN & PELVIS Without Contrast: Comparison is made to prior CT chest/abdomen/pelvis on 08/28/2017. Trace right pleural effusion and associated mild atelectasis. Mild cardiomegaly. Small liver cysts. Mild atrophy of the pancreas. No acute inflammation or mass. Mild bilateral hydroureteronephrosis. No obstructing stones identified. Nonspecific bilateral perinephric fat stranding. Infection is not excluded. Orta catheter and gas in an underdistended, thickened bladder. Please correlate with urinalysis to evaluate for cystitis. Component of neoplasm is not excluded. Calcifications along the base of the bladder may be associated with the prostate. Bladder stones are not excluded. Mild prostatomegaly. Diverticulosis without evidence of diverticulitis. Appendix is not visualized, but no CT evidence of acute appendicitis. No bowel obstruction or inflammation. Extensive sclerotic lesions throughout the pelvic bones, spine, ribs, and visualized sternum, compatible with osseous metastases, significantly worsened compared to prior exam. Atherosclerotic changes of the vasculature. No aneurysm. Bilateral fat-containing inguinal hernias. Greatly appreciate consultation! Gerard Hernandez MD Jun 19, 2018 06:23
[2018-06-19 08:00] VITALS: BP 118/50
--- NOTE | 2018-06-19 10:00 | Consultation ---
Consult Note Consult Note asked to eval for renal failure 83-year-old male, history of prostate cancer, status post prostatectomy last August, presenting with dysuria, hematuria, abdominal pain. Percent, patient only consented to having surgery, refused chemotherapy and radiation. Patient has had abdominal pain for the last few days, the last time he was able to have a full urination was this morning. Says that he has an urge to urinate. No fever no chills. No nausea no vomiting. Has otherwise been eating and drinking well. Lives at home and has a caregiver. Son states that the cancer has spread to his bones No Known Allergies (Unverified , 08/27/17) Hx Cancer: Yes - prostate Hx Neurological Problems: Yes - Dementia interviewed examined data reviewed Assessment/Plan Renal failure- Acute on Chronic UTI Bradyarrythmia anemia Prostate Ca with Mets Hydrate Minitor renal parameter ekg monitor tech trial hydralazine 2D echo Per order Christopher Coronado MD Jun 19, 2018 10:00
[2018-06-19] MEDS: D5NS 1,000 ML IV SCH ×2 (10:36→23:35)
--- NOTE | 2018-06-19 11:07 | GI Initial Consult Note ---
History of Present Illness General Date patient seen: Jun 19, 2018 Time patient seen: 11:38 Reason for Hospitalization: General Complaint Referring physician: LAURIE FIERRO Reason for Consultation: ABDOMINAL PAIN Present Illness HPI 83-year-old male, history of prostate cancer, status post prostatectomy last August, presenting with dysuria, hematuria, abdominal pain. Percent, patient only consented to having surgery, refused chemotherapy and radiation. Patient has had abdominal pain for the last few days, the last time he was able to have a full urination was this morning. Says that he has an urge to urinate. No fever no chills. No nausea no vomiting. Has otherwise been eating and drinking well. Lives at home and has a caregiver. Son states that the cancer has spread to his bones GI consulted for abdominal pain. Pt seen, awake A&Ox1 with history of dementia. No s/sx of active N/V/D and denies any of these symptoms. States he has been having abdominal pain; soft, non distend, with tenderness in all quadrants with guarding. Patient states last BM was over a week ago. Chery CT was taken last night, final read still pending. Labs reviewed; anemia, transaminitis with elevated alkaline phosphatase and creatinine levels. Denies any history of endoscopy/colonoscopy. Home Meds Reported Medications Ascorbic Acid* (VITAMIN C*) 500 Mg Tablet, 500 MG ORAL DAILY, #30 TAB 0 Refills 06/18/18 No Known Medications* (NKM - No Known Medications*) ., 0 ., 0 Refills 08/27/17 Discontinued Scripts Acetaminophen With Codeine (T#3) (TYLENOL #3 TAB*) Y Tab, 1 TAB ORAL Q6HR PRN, # 15 TAB Prov:Leann Reaves NP 08/30/17 Docusate Sodium* (COLACE*) 100 Mg Capsule, 100 MG ORAL TWICE A DAY, #30 CAP Prov:Leann Reaves CHILD WELFARE COUNSELOR 08/30/17 Levofloxacin* (LEVAQUIN*) 250 Mg Tablet, 250 MG ORAL DAILY, #7 TAB Prov:Leann Reaves NP 08/30/17 Med list reviewed/reconciled: Yes Allergies: Coded Allergies: No Known Allergies (Unverified , 08/27/17) Patient History Limited by: medical condition History Provided By: Family Member, Medical Record H Narrative Past Medical History: see triage record Past Surgical History: none Pertinent Family History: none Reviewed Nursing Documentation: PMH: Agreed; PSxH: Agreed Nursing Documentation-PMH Past Medical History: No History, Except For Hx Cardiac Problems: No - irregular heartbeat Hx Cancer: Yes - prostate Hx Gastrointestinal Problems: No Hx Neurological Problems: Yes - Dementia Social History: Denies: smoking, alcohol use, drug use, other Review of Systems All Other Systems: negative except mentioned in HPI Physical Exam Vital Signs Date Time Temp Pulse Resp B/P (MAP) Pulse Ox O2 Delivery O2 Flow Rate FiO2 06/18/18 17:08 99.0 41 17 174/55 98 Room Air 99.0 Sp02 EP Interpretation: reviewed, normal Labs Laboratory Tests Test 06/18/18 18:00 06/18/18 18:48 Urine Color Pale yellow Urine Appearance Clear Urine pH 5 (4.5-8.0) Urine Specific [place] 1.015 (1.005-1.035) Urine Protein 1+ (NEGATIVE) H Urine Glucose (UA) Negative (NEGATIVE) Urine Ketones Negative (NEGATIVE) Urine Blood 2+ (NEGATIVE) H Urine Nitrite Negative (NEGATIVE) Urine Bilirubin Negative (NEGATIVE) Urine Urobilinogen Normal MG/DL (0.0-1.0) Urine Leukocyte Esterase 1+ (NEGATIVE) H Urine RBC 2-4 /HPF (0 - 0) H Urine WBC 2-4 /HPF (0 - 0) Urine Squamous Epithelial Cells Occasional /LPF Urine Bacteria Occasional /HPF (NONE) White Blood Count 10.2 K/UL (4.8-10.8) Red Blood Count 3.64 M/UL (4.70-6.10) L Hemoglobin 11.8 G/DL (14.2-18.0) L Hematocrit 33.6 % (42.0-52.0) L Mean Corpuscular Volume 92 FL (80-99) Mean Corpuscular Hemoglobin 32.3 PG (27.0-31.0) H Mean Corpuscular Hemoglobin Concent 35.0 G/DL (32.0-36.0) Red Cell Distribution Width 12.8 % (11.6-14.8) Platelet Count 276 K/UL (150-450) Mean Platelet Volume 7.7 FL (6.5-10.1) Neutrophils (%) (Auto) 78.4 % (45.0-75.0) H Lymphocytes (%) (Auto) 8.1 % (20.0-45.0) L Monocytes (%) (Auto) 11.1 % (1.0-10.0) H Eosinophils (%) (Auto) 1.0 % (0.0-3.0) Basophils (%) (Auto) 1.3 % (0.0-2.0) Prothrombin Time 10.9 SEC (9.30-11.50) Prothromb Time International Ratio 1.0 (0.9-1.1) Activated Partial Thromboplast Time 30 SEC (23-33) Sodium Level 138 MMOL/L (136-145) Potassium Level 3.8 MMOL/L (3.5-5.1) Chloride Level 103 MMOL/L (98-107) Carbon Dioxide Level 22 MMOL/L (21-32) Anion Gap 13 mmol/L (5-15) Blood Urea Nitrogen 32 mg/dL (7-18) H Creatinine 1.8 MG/DL (0.55-1.30) H Estimat Glomerular Filtration Rate mL/min (>60) Glucose Level 111 MG/DL (74-106) H Lactic Acid Level 0.80 mmol/L (0.4-2.0) Calcium Level 9.0 MG/DL (8.5-10.1) Total Bilirubin 0.4 MG/DL (0.2-1.0) Aspartate Amino Transf (AST/SGOT) 292 U/L (15-37) H Alanine Aminotransferase (ALT/SGPT) 25 U/L (12-78) Alkaline Phosphatase 314 U/L (46-116) H Total Protein 7.4 G/DL (6.4-8.2) Albumin 2.9 G/DL (3.4-5.0) L Globulin 4.5 g/dL Albumin/Globulin Ratio 0.6 (1.0-2.7) L General Appearance: well appearing, alert Head: normocephalic EENT: PERRL/EOMI, normal ENT inspection Neck: supple Respiratory: normal breath sounds, no respiratory distress Cardiovascular: normal rate Gastrointestinal: normal inspection, non tender, soft, normal bowel sounds, non -distended Rectal: deferred Genitourinary: deferred - foss cath Musculoskeletal: normal inspection, back normal Neurologic: alert, responsive Skin: normal inspection, normal color, no rash, warm/dry, palpation normal, well hydrated Lymphatic: normal inspection, no adenopathy Current Medications Current Medications Medications (Trade) Dose Ordered Sig/Pancho Route PRN Reason Start Time Stop Time Status Last Admin Dose Admin Acetaminophen (Tylenol) 500 mg Q4H PRN ORAL Mild Pain/Temp > 100.5 06/18/18 23:30 07/18/18 23:29 Dextrose/Sodium Chloride 1,000 ml @ 75 mls/hr [id number] IV 06/19/18 10:15 07/19/18 10:14 06/19/18 10:36 Docusate Sodium (Colace) 100 mg THREE TIMES A DAY ORAL 06/19/18 13:00 07/19/18 12:59 Hydralazine HCl (Apresoline) 10 mg Q6HR ORAL 06/19/18 12:00 07/19/18 11:59 Iopamidol (Isovue-300 100ml) 100 ml NOW PRN INJ Radiology Procedure 06/18/18 17:30 Pantoprazole (Protonix) 40 mg DAILY ORAL 06/19/18 10:15 07/19/18 10:14 06/19/18 10:39 GI: Plan Problems: (1) Anemia (2) Constipation (3) Abdominal pain Plan Hx of Prostate CA s/p prostatectomy with metastases lesion on pancreatic head Subcentimeter low-attenuation liver lesions, too small to characterize, most likely benign cysts or bile hamartomas Multiple lung nodules fu oncology recs fu chery CT symptomatic treatment pain mgmt zofran prn anemia work up OB stool r/o GI bleed monitor H&H, prn transfusions bowel regime ppi fu labs Discussed with Dr. Joel. Thank you for this patient referral, we will follow. The patient was seen and examined at bedside and all new and available data was reviewed in the patients chart. I agree with the above findings, impression and plan. (Patient seen earlier today. Signature stamp does not reflect patient encounter time.). - MD Mary Yousif,[facility] CHILD WELFARE COUNSELOR Jun 19, 2018 11:07
[2018-06-19] MEDS ORDERED: Isovue-300 100ml vial INJ PRN (11:30)
[2018-06-19 12:00] VITALS: BP 124/51
[2018-06-19] MEDS: HydrALAZINE 10mg Tab ORAL SCH ×2 (12:00→17:41)
--- NOTE | 2018-06-19 12:10 | Diagnostic Imaging Report ---
Indication: Chest pain Comparison: None A single view chest radiograph was obtained. Findings: Basilar parenchymal densities demonstrated. Heart is mildly enlarged. Aorta is ectatic. Bones are slightly osteopenic. IMPRESSION: Patchy basilar infiltrates, versus scar versus atelectasis
[2018-06-19] MEDS ORDERED: LORazepam Inj 2mg/ml 1ml IV PRN (12:15)
--- NOTE | 2018-06-19 12:27 | Consultation ---
History of Present Illness General Date patient seen: Jun 18, 2018 Chief Complaint: General Complaint Referring physician: LAURIE FIERRO Reason for Consultation: ABDOMINAL PAIN Present Illness HPI 83-year-old male, history of prostate cancer, presenting with dysuria, hematuria , abdominal pain. The pt has hx of severe dementia and agitation. this is a late entry. the pt pw agitation and has been uncooperative. the pt has cognitive impairment and family son was at bedside. the pt is not able to provide meaningful history. the pt has memory impairment. Allergies: Coded Allergies: No Known Allergies (Unverified , 08/27/17) Medication History Scheduled Ascorbic Acid* (Vitamin C*), 500 MG ORAL DAILY, (Reported) No Known Medications* (NKM - No Known Medications*), 0 ., (Reported) Discontinued Medications Acetaminophen With Codeine (T#3) (Tylenol #3 Tab*), 1 TAB ORAL Q6HR PRN Discontinued Reason: Therapy completed Docusate Sodium* (Colace*), 100 MG ORAL TWICE A DAY Discontinued Reason: Therapy completed Levofloxacin* (Levaquin*), 250 MG ORAL DAILY Discontinued Reason: Therapy completed Patient History Limited by: medical condition History Provided By: Patient, Medical Record Healthcare decision maker Resuscitation status Full Code Advanced Directive on File No Past Medical/Surgical History Past Medical/Surgical History: (1) Hematuria (2) Bradycardia (3) Renal insufficiency (4) UTI (urinary tract infection) (5) Abnormal urogenital findings (6) Constipation (7) Anemia (8) Abdominal pain Review of Systems Psychiatric: Reports: prior hx, anxiety, depressed feelings, hallucinations Physical Exam General Appearance: no apparent distress, alert, confused, agitated Last 24 Hour Vital Signs Date Time Temp Pulse Resp B/P (MAP) Pulse Ox O2 Delivery O2 Flow Rate FiO2 06/19/18 12:00 97.5 40 18 124/51 (75) 96 97.5 06/19/18 12:00 124/51 06/19/18 09:00 Room Air 06/19/18 08:00 40 06/19/18 08:00 97.9 42 18 118/50 (72) 98 97.9 06/19/18 04:00 49 06/19/18 04:00 98.2 55 20 114/55 (74) 99 98.2 06/19/18 00:00 50 06/19/18 00:00 98.2 64 20 122/51 (74) 97 98.2 06/18/18 23:26 Room Air 06/18/18 22:55 48 06/18/18 22:10 97.0 48 20 111/45 (67) 96 97.0 06/18/18 22:00 98.7 43 18 135/50 99 Room Air 98.7 06/18/18 22:00 37.51546 43 18 135/50 99 Room Air 209.7 06/18/18 19:52 99.1 39 18 128/46 98 Room Air 99.1 06/18/18 17:11 99.0 41 17 174/55 98 Room Air 99.0 06/18/18 17:08 99.0 41 17 174/55 98 Room Air 99.0 Intake and Output 06/18/18 06/19/18 19:00 07:00 Output Total 0 ml 1600 ml Balance 0 ml -1600 ml Output Urine Total 0 ml 1600 ml Laboratory Tests Test 06/18/18 18:00 06/18/18 18:48 Urine Color Pale yellow Urine Appearance Clear Urine pH 5 (4.5-8.0) Urine Specific [place] 1.015 (1.005-1.035) Urine Protein 1+ (NEGATIVE) H Urine Glucose (UA) Negative (NEGATIVE) Urine Ketones Negative (NEGATIVE) Urine Blood 2+ (NEGATIVE) H Urine Nitrite Negative (NEGATIVE) Urine Bilirubin Negative (NEGATIVE) Urine Urobilinogen Normal MG/DL (0.0-1.0) Urine Leukocyte Esterase 1+ (NEGATIVE) H Urine RBC 2-4 /HPF (0 - 0) H Urine WBC 2-4 /HPF (0 - 0) Urine Squamous Epithelial Cells Occasional /LPF Urine Bacteria Occasional /HPF (NONE) White Blood Count 10.2 K/UL (4.8-10.8) Red Blood Count 3.64 M/UL (4.70-6.10) L Hemoglobin 11.8 G/DL (14.2-18.0) L Hematocrit 33.6 % (42.0-52.0) L Mean Corpuscular Volume 92 FL (80-99) Mean Corpuscular Hemoglobin 32.3 PG (27.0-31.0) H Mean Corpuscular Hemoglobin Concent 35.0 G/DL (32.0-36.0) Red Cell Distribution Width 12.8 % (11.6-14.8) Platelet Count 276 K/UL (150-450) Mean Platelet Volume 7.7 FL (6.5-10.1) Neutrophils (%) (Auto) 78.4 % (45.0-75.0) H Lymphocytes (%) (Auto) 8.1 % (20.0-45.0) L Monocytes (%) (Auto) 11.1 % (1.0-10.0) H Eosinophils (%) (Auto) 1.0 % (0.0-3.0) Basophils (%) (Auto) 1.3 % (0.0-2.0) Prothrombin Time 10.9 SEC (9.30-11.50) Prothromb Time International Ratio 1.0 (0.9-1.1) Activated Partial Thromboplast Time 30 SEC (23-33) Sodium Level 138 MMOL/L (136-145) Potassium Level 3.8 MMOL/L (3.5-5.1) Chloride Level 103 MMOL/L (98-107) Carbon Dioxide Level 22 MMOL/L (21-32) Anion Gap 13 mmol/L (5-15) Blood Urea Nitrogen 32 mg/dL (7-18) H Creatinine 1.8 MG/DL (0.55-1.30) H Estimat Glomerular Filtration Rate mL/min (>60) Glucose Level 111 MG/DL (74-106) H Lactic Acid Level 0.80 mmol/L (0.4-2.0) Calcium Level 9.0 MG/DL (8.5-10.1) Total Bilirubin 0.4 MG/DL (0.2-1.0) Aspartate Amino Transf (AST/SGOT) 292 U/L (15-37) H Alanine Aminotransferase (ALT/SGPT) 25 U/L (12-78) Alkaline Phosphatase 314 U/L (46-116) H Total Protein 7.4 G/DL (6.4-8.2) Albumin 2.9 G/DL (3.4-5.0) L Globulin 4.5 g/dL Albumin/Globulin Ratio 0.6 (1.0-2.7) L Microbiology Date/Time Source Procedure Growth Status 06/18/18 18:05 Indwelling Cath Urine Culture - Preliminary NO GROWTH Resulted Height (Feet): 6 Height (Inches): 0.00 Weight (Pounds): 180 Medications Current Medications Medications (Trade) Dose Ordered Sig/Pancho Route PRN Reason Start Time Stop Time Status Last Admin Dose Admin Acetaminophen (Tylenol) 500 mg Q4H PRN ORAL Mild Pain/Temp > 100.5 06/18/18 23:30 07/18/18 23:29 Barium Sulfate (Readi-Cat 2) 450 ml NOW PRN ORAL Radiology Procedure 06/19/18 11:30 06/21/18 11:25 Dextrose/Sodium Chloride 1,000 ml @ 75 mls/hr [id number] IV 06/19/18 10:15 07/19/18 10:14 06/19/18 10:36 Docusate Sodium (Colace) 100 mg THREE TIMES A DAY ORAL 06/19/18 13:00 07/19/18 12:59 Hydralazine HCl (Apresoline) 10 mg Q6HR ORAL 06/19/18 12:00 07/19/18 11:59 Iopamidol (Isovue-300 100ml) 100 ml NOW PRN INJ Radiology Procedure 06/19/18 11:30 06/21/18 11:29 Iopamidol (Isovue-300 100ml) 100 ml NOW PRN INJ Radiology Procedure 06/18/18 17:30 Pantoprazole (Protonix) 40 mg DAILY ORAL 06/19/18 10:15 07/19/18 10:14 06/19/18 10:39 Piperacillin Sod/ Tazobactam Sod 3.375 gm/Dextrose 110 ml @ 27.5 mls/hr EVERY 8 HOURS IVPB 06/19/18 14:00 06/24/18 13:59 Assessment/Plan Assessment/Plan Dementia with behavioral dist psychotic d/o -ativan 1mg iv q4hr prn agitation -the pt lacks capacity to make decisions. Vilma Medina MD Jun 19, 2018 12:27
--- NOTE | 2018-06-19 12:27 | General Progress Note ---
Assessment/Plan Assessment/Plan Dementia with behavioral dist psychotic d/o -ativan 1mg iv q4hr prn agitation -the pt lacks capacity to make decisions. soft restraints the pt son gave consent Subjective Date patient seen: Jun 19, 2018 Neurologic/Psychiatric: Reports: anxiety, depressed, emotional problems Allergies: Coded Allergies: No Known Allergies (Unverified , 08/27/17) Subjective the pt refused blood Objective Last 24 Hour Vital Signs Date Time Temp Pulse Resp B/P (MAP) Pulse Ox O2 Delivery O2 Flow Rate FiO2 06/19/18 12:00 97.5 40 18 124/51 (75) 96 97.5 06/19/18 12:00 124/51 06/19/18 09:00 Room Air 06/19/18 08:00 40 06/19/18 08:00 97.9 42 18 118/50 (72) 98 97.9 06/19/18 04:00 49 06/19/18 04:00 98.2 55 20 114/55 (74) 99 98.2 06/19/18 00:00 50 06/19/18 00:00 98.2 64 20 122/51 (74) 97 98.2 06/18/18 23:26 Room Air 06/18/18 22:55 48 06/18/18 22:10 97.0 48 20 111/45 (67) 96 97.0 06/18/18 22:00 98.7 43 18 135/50 99 Room Air 98.7 06/18/18 22:00 37.82553 43 18 135/50 99 Room Air 209.7 06/18/18 19:52 99.1 39 18 128/46 98 Room Air 99.1 06/18/18 17:11 99.0 41 17 174/55 98 Room Air 99.0 06/18/18 17:08 99.0 41 17 174/55 98 Room Air 99.0 Intake and Output 06/18/18 06/19/18 19:00 07:00 Output Total 0 ml 1600 ml Balance 0 ml -1600 ml Output Urine Total 0 ml 1600 ml Laboratory Tests 06/18/18 18:00: Urine Color Pale yellow, Urine Appearance Clear, Urine pH 5, Urine Specific [place] 1.015, Urine Protein 1+H, Urine Glucose (UA) Negative, Urine Ketones Negative, Urine Blood 2+H, Urine Nitrite Negative, Urine Bilirubin Negative, Urine Urobilinogen Normal, Urine Leukocyte Esterase 1+H, Urine RBC 2-4H, Urine WBC 2-4, Urine Squamous Epithelial Cells Occasional, Urine Bacteria Occasional 06/18/18 18:48: White Blood Count 10.2, Red Blood Count 3.64L, Hemoglobin 11.8L, Hematocrit 33.6L, Mean Corpuscular Volume 92, Mean Corpuscular Hemoglobin 32.3H, Mean Corpuscular Hemoglobin Concent 35.0, Red Cell Distribution Width 12.8, Platelet Count 276, Mean Platelet Volume 7.7, Neutrophils (%) (Auto) 78.4H, Lymphocytes ( %) (Auto) 8.1L, Monocytes (%) (Auto) 11.1H, Eosinophils (%) (Auto) 1.0, Basophils (%) (Auto) 1.3, Prothrombin Time 10.9, Prothromb Time International Ratio 1.0, Activated Partial Thromboplast Time 30, Sodium Level 138, Potassium Level 3.8, Chloride Level 103, Carbon Dioxide Level 22, Anion Gap 13, Blood Urea Nitrogen 32H, Creatinine 1.8H, Estimat Glomerular Filtration Rate , Glucose Level 111H, Lactic Acid Level 0.80, Calcium Level 9.0, Total Bilirubin 0.4, Aspartate Amino Transf (AST/SGOT) 292H, Alanine Aminotransferase (ALT/SGPT ) 25, Alkaline Phosphatase 314H, Total Protein 7.4, Albumin 2.9L, Globulin 4.5, Albumin/Globulin Ratio 0.6L Height (Feet): 6 Height (Inches): 0.00 Weight (Pounds): 180 Vilma Medina MD Jun 19, 2018 12:27
[2018-06-19 12:36] LABS: BASOPHILS % (AUTO) 0.9 % (0.0-2.0); EOSINOPHILS % (AUTO) 1.4 % (0.0-3.0); HEMATOCRIT 34.6 % (42.0-52.0); LYMPHOCYTES % (AUTO) 17.6 % (20.0-45.0); MEAN CORPUSCULAR VOLUME 91 FL (80-99); MONOCYTES % (AUTO) 9.6 % (1.0-10.0); NEUTROPHILS % (AUTO) 70.5 % (45.0-75.0); PLATELET COUNT 257 K/UL (150-450); RED BLOOD COUNT 3.81 M/UL (4.70-6.10); RED CELL DISTRIBUTION WIDTH 12.9 % (11.6-14.8); WHITE BLOOD COUNT 8.1 K/UL (4.8-10.8)
[2018-06-19 12:52] LABS: ANION GAP 9 mmol/L (5-15); BLOOD UREA NITROGEN 29 mg/dL (7-18); CALCIUM 8.4 MG/DL (8.5-10.1); CARBON DIOXIDE 26 MMOL/L (21-32); CHLORIDE 105 MMOL/L (98-107); CREATININE 1.3 MG/DL (0.55-1.30); POTASSIUM 3.7 MMOL/L (3.5-5.1); SODIUM 140 MMOL/L (136-145)
[2018-06-19] MEDS: Docusate 100mg cap ORAL SCH ×2 (12:55→17:41)
[2018-06-19 13:29] LABS: ALANINE AMINOTRANSFERASE 26 U/L (12-78); ALBUMIN 2.7 G/DL (3.4-5.0); ALBUMIN/GLOBULIN RATIO 0.6 (1.0-2.7); ALKALINE PHOSPHATASE 273 U/L (46-116); ASPARTATE AMINO TRANSFERASE 192 U/L (15-37); BILIRUBIN,TOTAL 0.5 MG/DL (0.2-1.0); CHOLESTEROL 194 MG/DL (< 200); FERRITIN 637 NG/ML (8-388); HDL CHOLESTEROL 74 MG/DL (40-60); PHOSPHORUS 3.9 MG/DL (2.5-4.9); TRIGLYCERIDES 64 MG/DL (30-150)
[2018-06-19 13:37] LABS: IRON 30 ug/dL (50-175); TOTAL IRON BINDING CAPACITY 194 ug/dL (250-450)
[2018-06-19 13:57] LABS: % IRON SATURATION 15 % (15-50)
--- NOTE | 2018-06-19 14:08 | Cardiac Electrophysiology PN ---
Subjective Subjective [id number] Objective Last 24 Hour Vital Signs Date Time Temp Pulse Resp B/P (MAP) Pulse Ox O2 Delivery O2 Flow Rate FiO2 06/19/18 12:00 97.5 40 18 124/51 (75) 96 97.5 06/19/18 12:00 124/51 06/19/18 09:00 Room Air 06/19/18 08:00 40 06/19/18 08:00 97.9 42 18 118/50 (72) 98 97.9 06/19/18 04:00 49 06/19/18 04:00 98.2 55 20 114/55 (74) 99 98.2 06/19/18 00:00 50 06/19/18 00:00 98.2 64 20 122/51 (74) 97 98.2 06/18/18 23:26 Room Air 06/18/18 22:55 48 06/18/18 22:10 97.0 48 20 111/45 (67) 96 97.0 06/18/18 22:00 98.7 43 18 135/50 99 Room Air 98.7 06/18/18 22:00 37.41525 43 18 135/50 99 Room Air 209.7 06/18/18 19:52 99.1 39 18 128/46 98 Room Air 99.1 06/18/18 17:11 99.0 41 17 174/55 98 Room Air 99.0 06/18/18 17:08 99.0 41 17 174/55 98 Room Air 99.0 Intake and Output 06/18/18 06/19/18 19:00 07:00 Output Total 0 ml 1600 ml Balance 0 ml -1600 ml Output Urine Total 0 ml 1600 ml Laboratory Tests Test 06/18/18 18:00 06/18/18 18:48 06/19/18 12:25 Urine Color Pale yellow Urine Appearance Clear Urine pH 5 (4.5-8.0) Urine Specific [place] 1.015 (1.005-1.035) Urine Protein 1+ (NEGATIVE) H Urine Glucose (UA) Negative (NEGATIVE) Urine Ketones Negative (NEGATIVE) Urine Blood 2+ (NEGATIVE) H Urine Nitrite Negative (NEGATIVE) Urine Bilirubin Negative (NEGATIVE) Urine Urobilinogen Normal MG/DL (0.0-1.0) Urine Leukocyte Esterase 1+ (NEGATIVE) H Urine RBC 2-4 /HPF (0 - 0) H Urine WBC 2-4 /HPF (0 - 0) Urine Squamous Epithelial Cells Occasional /LPF Urine Bacteria Occasional /HPF (NONE) White Blood Count 10.2 K/UL (4.8-10.8) 8.1 K/UL (4.8-10.8) Red Blood Count 3.64 M/UL (4.70-6.10) L 3.81 M/UL (4.70-6.10) L Hemoglobin 11.8 G/DL (14.2-18.0) L 12.0 G/DL (14.2-18.0) L Hematocrit 33.6 % (42.0-52.0) L 34.6 % (42.0-52.0) L Mean Corpuscular Volume 92 FL (80-99) 91 FL (80-99) Mean Corpuscular Hemoglobin 32.3 PG (27.0-31.0) H 31.5 PG (27.0-31.0) H Mean Corpuscular Hemoglobin Concent 35.0 G/DL (32.0-36.0) 34.7 G/DL (32.0-36.0) Red Cell Distribution Width 12.8 % (11.6-14.8) 12.9 % (11.6-14.8) Platelet Count 276 K/UL (150-450) 257 K/UL (150-450) Mean Platelet Volume 7.7 FL (6.5-10.1) 7.7 FL (6.5-10.1) Neutrophils (%) (Auto) 78.4 % (45.0-75.0) H 70.5 % (45.0-75.0) Lymphocytes (%) (Auto) 8.1 % (20.0-45.0) L 17.6 % (20.0-45.0) L Monocytes (%) (Auto) 11.1 % (1.0-10.0) H 9.6 % (1.0-10.0) Eosinophils (%) (Auto) 1.0 % (0.0-3.0) 1.4 % (0.0-3.0) Basophils (%) (Auto) 1.3 % (0.0-2.0) 0.9 % (0.0-2.0) Prothrombin Time 10.9 SEC (9.30-11.50) Prothromb Time International Ratio 1.0 (0.9-1.1) Activated Partial Thromboplast Time 30 SEC (23-33) Sodium Level 138 MMOL/L (136-145) 140 MMOL/L (136-145) Potassium Level 3.8 MMOL/L (3.5-5.1) 3.7 MMOL/L (3.5-5.1) Chloride Level 103 MMOL/L (98-107) 105 MMOL/L (98-107) Carbon Dioxide Level 22 MMOL/L (21-32) 26 MMOL/L (21-32) Anion Gap 13 mmol/L (5-15) 9 mmol/L (5-15) Blood Urea Nitrogen 32 mg/dL (7-18) H 29 mg/dL (7-18) H Creatinine 1.8 MG/DL (0.55-1.30) H 1.3 MG/DL (0.55-1.30) Estimat Glomerular Filtration Rate mL/min (>60) mL/min (>60) Glucose Level 111 MG/DL (74-106) H 99 MG/DL (74-106) Lactic Acid Level 0.80 mmol/L (0.4-2.0) Calcium Level 9.0 MG/DL (8.5-10.1) 8.4 MG/DL (8.5-10.1) L Total Bilirubin 0.4 MG/DL (0.2-1.0) 0.5 MG/DL (0.2-1.0) Aspartate Amino Transf (AST/SGOT) 292 U/L (15-37) H 192 U/L (15-37) H Alanine Aminotransferase (ALT/SGPT) 25 U/L (12-78) 26 U/L (12-78) Alkaline Phosphatase 314 U/L (46-116) H 273 U/L (46-116) H Total Protein 7.4 G/DL (6.4-8.2) 7.2 G/DL (6.4-8.2) Albumin 2.9 G/DL (3.4-5.0) L 2.7 G/DL (3.4-5.0) L Globulin 4.5 g/dL 4.5 g/dL Albumin/Globulin Ratio 0.6 (1.0-2.7) L 0.6 (1.0-2.7) L Uric Acid 7.8 MG/DL (2.6-7.2) H Phosphorus Level 3.9 MG/DL (2.5-4.9) Magnesium Level 2.2 MG/DL (1.8-2.4) Iron Level 30 ug/dL (50-175) L Total Iron Binding Capacity 194 ug/dL (250-450) L Percent Iron Saturation 15 % (15-50) Unsaturated Iron Binding 164 ug/dL (112-346) Ferritin 637 NG/ML (8-388) H C-Reactive Protein, Quantitative 6.2 mg/dL (0.00-0.90) H Pro-B-Type Natriuretic Peptide 947 pg/mL (0-125) H Triglycerides Level 64 MG/DL (30-150) Cholesterol Level 194 MG/DL (< 200) LDL Cholesterol 100 mg/dL (<100) HDL Cholesterol 74 MG/DL (40-60) H Cholesterol/HDL Ratio 2.6 (3.3-4.4) L Prostate Specific Antigen 571.34 ng/mL (0.13-4.0) H Vitamin B12 Level 767 PG/ML (193-986) Folate 21.0 NG/ML (8.6-58.9) Thyroid Stimulating Hormone (TSH) 0.755 uiU/mL (0.358-3.740) Microbiology Date/Time Source Procedure Growth Status 06/18/18 18:05 Indwelling Cath Urine Culture - Preliminary NO GROWTH Resulted Miko Reed MD Jun 19, 2018 14:08
[2018-06-19] MEDS: Piperacillin/Tazobactam 3.375 GM in D5W 110 ML IVPB SCH ×2 (14:28→22:32)
--- NOTE | 2018-06-19 15:08 | Cardiology Report ---
APPROVED REPORT EXAM: Two-dimensional and M-mode echocardiogram with Doppler and color Doppler. INDICATION Bradycardia M-Mode DIMENSIONS IVSd1.2 (0.7-1.1cm)Left Atrium (MM)4.0 (1.6-4.0cm) LVDd4.6 (3.5-5.6cm)Aortic Root3.5 (2.0-3.7cm) PWd1.0 (0.7-1.1cm)Aortic Cusp Exc.2.0 (1.5-2.0cm) LVDs2.5 (2.5-4.0cm) PWs2.3 cm Normal left ventricular chamber size, systolic function and wall motion. Left ventricular ejection fraction estimated to be 55 %. Mild left ventricular hypertrophy. No evidence of pericardial effusion. All other cardiac chamber sizes are within normal limits. Mild focal aortic valve sclerosis with adequate cusp excursion. Mildly thickened mitral valve leaflets with normal excursion. Mild mitral annulus and aortic root calcification. Normal pulmonic valve structure. Normal tricuspid valve structure. IVC is normal in size with physiological collapse. A color flow and spectral Doppler study was performed and revealed: Mild aortic insufficiency. Mild mitral regurgitation. Mitral inflow velocities indicates possible pseudo normalization pattern implying significant left ventricular diastolic dysfunction (Grade II). Trace tricuspid regurgitation. Tricuspid systolic velocities suggests peak right ventricular systolic pressure of 34 mmHg. Trace pulmonic regurgitation present.
--- NOTE | 2018-06-19 15:19 | Cardiology Report ---
APPROVED REPORT EKG Measurement Heart [id number] Sinus rhythm with 2nd degree AV block (Mobitz II) with 2:1 AV conduction Abnormal ECG
[2018-06-19] MEDS: Morphine Sulfate 2mg/ml Inj IVP PRN ×2 (15:46→23:07)
[2018-06-19 16:00] VITALS: BP 120/50
[2018-06-19 20:00] VITALS: BP 115/71
--- NOTE | 2018-06-19 22:00 | Consultation ---
DATE OF CONSULTATION: 06/19/2018 INFECTIOUS DISEASES CONSULTATION This consultation has been done on behalf of Dr. Mario Daigle. CONSULTING PHYSICIAN: Vishnu Carranza M.D. REFERRING PHYSICIAN: Yury Murray M.D. REASON FOR CONSULTATION: Urinary tract infection. HISTORY OF PRESENT ILLNESS: This is an 83-year-old gentleman with history of and prostate cancer status post prostatectomy and refused chemotherapy and radiation who started having abdominal pain. He also has difficulty with urination and an Infectious Diseases consultation has been obtained for antibiotics. He also complains of blood in the urine. PAST MEDICAL HISTORY: 1. History of prostate cancer status post prostatectomy. He refused chemotherapy and radiation therapy. He has history of bladder stone status post cystolitholapaxy. 2. Bradycardia. SOCIAL HISTORY: He smokes cigar. He drinks alcohol. No history of drug use. FAMILY HISTORY: His father had heart disease. REVIEW OF SYSTEMS: RESPIRATORY: No fever, chills, cough, shortness of breath or chest pain. CARDIAC: No chest pain. No palpitations. No dizziness. No syncope. GASTROINTESTINAL: No nausea. No vomiting. He does complain of abdominal pain. GENITOURINARY: He does have hematuria and dysuria. MEDICATIONS: As an inpatient, he is on hydralazine, docusate, Protonix, Tylenol, iopamidol. ALLERGIES: No known drug allergies. PHYSICAL EXAMINATION: VITAL SIGNS: Temperature 97.9, T-max of 99.1, pulse of 42, respiratory rate of 18, blood pressure 118/50, O2 saturation of 98%. HEENT: Pupils equally reactive to light and accommodation. Mouth appears clean without thrush. NECK: Supple. No adenopathy. No JVD. CARDIOVASCULAR: Regular rate and rhythm. No murmurs. LUNGS: Clear to auscultation bilaterally. No crackles. No wheezes. ABDOMEN: Soft. There is diffuse tenderness particularly in the suprapubic area. EXTREMITIES: No cyanosis, no clubbing, no edema. LABORATORY AND DIAGNOSTIC DATA: White count 10.2, hemoglobin 11.8, hematocrit 33.6, MCV 92, platelet count of 276 with neutrophils of 78%. Sodium 138, potassium 3.8, chloride 103, bicarb 22, BUN 32, creatinine 1.8, glucose 111, calcium 9. Total bilirubin 0.4, AST 292, ALT 25, alkaline phosphatase 314, total protein 7.4, albumin 2.9. UA 2 to 4 white cells. Urine cultures are negative. ASSESSMENT: 1. This is an 83-year-old gentleman with history of prostate cancer status post prostatectomy who comes in with dysuria and hematuria and suprapubic pain would be concerned regarding a urinary tract infection. 2. Prostate cancer. PLAN: 1. We will start the patient on Zosyn. 2. We will order CT abdomen and pelvis. 3. We will follow up cultures and adjust antibiotics accordingly. I would like to thank, Dr. Murray for this consultation. Vishnu Carranza M.D. DR: Darline JOB#: [id number] CC: Yury Murray M.D.; Fax#: [phone]
--- NOTE | 2018-06-19 22:45 | Consultation ---
DATE OF CONSULTATION: 06/19/2018 CARDIOLOGY CONSULTATION CONSULTING PHYSICIAN: Miko Reed M.D. REFERRING PHYSICIAN: Yury Murray M.D. REASON FOR CONSULTATION: Bradycardia and heart block. HISTORY OF PRESENT ILLNESS: The patient is an 83-year-old gentleman with history of hypertension and metastatic prostate cancer and dementia, who underwent prostatectomy last August. The patient at that time had PSA in the 200s with bony lytic lesion on the x-ray. He underwent TURP and cystolitholapaxy of large bladder stone by Dr. Gonzalez, but has refused chemotherapy and is not on Lupron or Casodex. The patient presented to the emergency room with hematuria and dysuria and abdominal pain. His EKG showed sinus rhythm with a second-degree AV block as well as 2:1 AV block with heart rate of 43. His echocardiogram showed normal left ventricular systolic function. The patient was admitted and a Cardiology consultation was obtained for further evaluation. REVIEW OF SYSTEMS: Review of systems was negative other than what was mentioned in the history of present illness. is confused, but specifically denies chest pain or shortness of breath. PAST MEDICAL HISTORY: As mentioned above. FAMILY HISTORY: Noncontributory. SOCIAL HISTORY: He lives at home. Does not smoke or drink alcohol. PHYSICAL EXAMINATION: VITAL SIGNS: Blood pressure is 124/50, pulse is 48 , respirations 18, and temperature 97.5. HEAD AND NECK: Showed no JVD. LUNGS: Clear. CARDIOVASCULAR: Shows bradycardic, S1-S2 with no gallop or murmur. ABDOMEN: Soft. EXTREMITIES: 1+ pitting edema. LABORATORY AND DIAGNOSTIC DATA: Labs show a white count of 8.1, hemoglobin 12, hematocrit 34.6, and platelet count of 257,000. Sodium 140, potassium 3.7, BUN of 29, and creatinine 1.3. His calcium is 8.4. His PSA is 571. His 12-lead EKG from today at 8:15 a.m. showed sinus rhythm with second-degree AV block and 2:1 AV block on another EKG with heart rate of 42. ASSESSMENT AND PLAN: 1. 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 The patient is off any AV feliciano blocking agents. The patient's son states that his father would not want pacemaker. We will watch the patient on the telemetry. It is of note however the patient is still Full Code. 2. Metastatic prostate cancer, status post prostatectomy in August. 3. Abdominal pain. Further evaluation by Dr. Joel. 4. Dementia. Thank you very much, Dr. Murray, for allowing me to participate in the care of this patient. Please do not hesitate to contact me if you have any questions regarding my evaluation. Miko Reed M.D. DR: ISAIAS JOB#: [id number] CC:
[2018-06-20] VITALS: BP 98/61
--- NOTE | 2018-06-20 03:15 | History and Physical Report ---
DATE OF ADMISSION: 06/18/2018 HISTORY OF PRESENT ILLNESS: The patient was admitted for bradycardia and abdominal pain. The patient has advanced dementia. History was obtained from the son at bedside. The patient again is a very poor historian. The patient any pain. The patient is admitted for abdominal pain and hematuria. The patient's urologist is Dr. Gonzalez who did prostatectomy on this patient. According to the son at the bedside, the patient is having hematuria and abdominal pain for two weeks. No other problems or symptoms. PAST MEDICAL HISTORY: Significant for prostate cancer, history of hematuria, and advanced dementia. PAST SURGICAL HISTORY: Prostatectomy. MEDICATIONS: Unknown at this point. SOCIAL HISTORY: History of smoking. History of alcohol abuse. Lives at home. FAMILY HISTORY: Noncontributory. REVIEW OF SYSTEMS: Unable to obtain, very poor historian, but has been apparently according to son complaining of hematuria and abdominal pain for two weeks. PHYSICAL EXAMINATION: VITAL SIGNS: Temperature is 98.2, pulse is 49, blood pressure is 114/55. HEENT: PERRLA. NECK: Supple. No lymphadenopathy. CHEST: Clear to auscultation. CARDIOVASCULAR: Bradycardic. ABDOMEN: Soft, nontender, and nondistended. No organomegaly. EXTREMITIES: No edema. Moves all four extremities. Sensory intact to light touch. Reflexes on both sides. NEUROLOGIC: Oriented to name only. LABORATORY DATA: WBC of 10.2, hemoglobin 11.8, platelets of 276. Sodium 138, potassium 3.8, BUN of 32, creatinine 1.8, and glucose of 111. AST of 292. ASSESSMENT AND PLAN: Abdominal pain, hematuria, bradycardia. I have asked Dr. Coronado, Dr. Reed, Dr. Mario Daigle, Dr. Joel, Dr. Gonzalez to see the patient for abdominal pain and hematuria as well as to rule out urinary tract infection as well as for bradycardia as well as treatment of azotemia most likely due to dehydration. Yury Murray M.D. DR: Shoaib JOB#: [id number] CC:
[2018-06-20 04:00] VITALS: BP 102/54
[2018-06-20] MEDS: HydrALAZINE 10mg Tab ORAL SCH ×3 (06:00→12:00)
[2018-06-20] MEDS: Piperacillin/Tazobactam 3.375 GM in D5W 110 ML IVPB SCH (06:12)
[2018-06-20 08:00] VITALS: BP 123/59
[2018-06-20] MEDS: Morphine Sulfate 2mg/ml Inj IVP PRN (08:41)
[2018-06-20] MEDS: Docusate 100mg cap ORAL SCH ×3 (08:41→18:11)
--- NOTE | 2018-06-20 10:25 | GI Progress Note ---
Assessment/Plan Problems: (1) Abdominal pain ICD Codes: R10.9 - Unspecified abdominal pain SNOMED: 62937426 (2) Anemia ICD Codes: D64.9 - Anemia, unspecified SNOMED: 841903515 (3) Constipation ICD Codes: K59.00 - Constipation, unspecified SNOMED: 29995467 Status: unchanged Status Narrative Discussed with Dr. Joel. Assessment/Plan Hx of Prostate CA s/p prostatectomy with metastases lesion on pancreatic head Subcentimeter low-attenuation liver lesions, too small to characterize, most likely benign cysts or bile hamartomas Multiple lung nodules fu oncology recs fu chery CT symptomatic treatment pain mgmt zofran prn OB stool r/o GI bleed monitor H&H, prn transfusions bowel regime ppi fu labs The patient was seen and examined at bedside and all new and available data was reviewed in the patients chart. I agree with the above findings, impression and plan. (Patient seen earlier today. Signature stamp does not reflect patient encounter time.). - Ruhs Joel MD Subjective Gastrointestinal/Abdominal: Reports: abdominal pain Objective Last 24 Hour Vital Signs Date Time Temp Pulse Resp B/P (MAP) Pulse Ox O2 Delivery O2 Flow Rate FiO2 06/20/18 09:11 97.7 06/20/18 08:41 97.7 06/20/18 08:00 97.5 38 20 123/59 (80) 97 97.5 06/20/18 06:00 99/58 06/20/18 04:00 97.7 40 16 102/54 (70) 97 97.7 06/20/18 04:00 31 06/20/18 00:00 35 06/20/18 00:00 98/61 06/20/18 00:00 98.1 43 16 98/61 (73) 97 98.1 06/19/18 21:00 Room Air 06/19/18 20:00 99.3 47 17 115/71 (86) 97 99.3 06/19/18 20:00 47 06/19/18 17:41 118/56 06/19/18 16:00 39 06/19/18 16:00 99.3 46 18 120/50 (73) 97 99.3 06/19/18 12:00 97.5 40 18 124/51 (75) 96 97.5 06/19/18 12:00 124/51 06/19/18 12:00 50 Intake and Output 06/19/18 06/20/18 19:00 07:00 Intake Total 1100.0 ml 210 ml Output Total 600 ml 500 ml Balance 500.0 ml -290 ml Intake Oral 360 ml 100 ml IV Total 740.0 ml 110 ml Output Urine Total 600 ml 500 ml Laboratory Tests Test 06/19/18 12:25 White Blood Count 8.1 K/UL (4.8-10.8) Red Blood Count 3.81 M/UL (4.70-6.10) L Hemoglobin 12.0 G/DL (14.2-18.0) L Hematocrit 34.6 % (42.0-52.0) L Mean Corpuscular Volume 91 FL (80-99) Mean Corpuscular Hemoglobin 31.5 PG (27.0-31.0) H Mean Corpuscular Hemoglobin Concent 34.7 G/DL (32.0-36.0) Red Cell Distribution Width 12.9 % (11.6-14.8) Platelet Count 257 K/UL (150-450) Mean Platelet Volume 7.7 FL (6.5-10.1) Neutrophils (%) (Auto) 70.5 % (45.0-75.0) Lymphocytes (%) (Auto) 17.6 % (20.0-45.0) L Monocytes (%) (Auto) 9.6 % (1.0-10.0) Eosinophils (%) (Auto) 1.4 % (0.0-3.0) Basophils (%) (Auto) 0.9 % (0.0-2.0) Sodium Level 140 MMOL/L (136-145) Potassium Level 3.7 MMOL/L (3.5-5.1) Chloride Level 105 MMOL/L (98-107) Carbon Dioxide Level 26 MMOL/L (21-32) Anion Gap 9 mmol/L (5-15) Blood Urea Nitrogen 29 mg/dL (7-18) H Creatinine 1.3 MG/DL (0.55-1.30) Estimat Glomerular Filtration Rate mL/min (>60) Glucose Level 99 MG/DL (74-106) Uric Acid 7.8 MG/DL (2.6-7.2) H Calcium Level 8.4 MG/DL (8.5-10.1) L Phosphorus Level 3.9 MG/DL (2.5-4.9) Magnesium Level 2.2 MG/DL (1.8-2.4) Iron Level 30 ug/dL (50-175) L Total Iron Binding Capacity 194 ug/dL (250-450) L Percent Iron Saturation 15 % (15-50) Unsaturated Iron Binding 164 ug/dL (112-346) Ferritin 637 NG/ML (8-388) H Total Bilirubin 0.5 MG/DL (0.2-1.0) Aspartate Amino Transf (AST/SGOT) 192 U/L (15-37) H Alanine Aminotransferase (ALT/SGPT) 26 U/L (12-78) Alkaline Phosphatase 273 U/L (46-116) H C-Reactive Protein, Quantitative 6.2 mg/dL (0.00-0.90) H Pro-B-Type Natriuretic Peptide 947 pg/mL (0-125) H Total Protein 7.2 G/DL (6.4-8.2) Albumin 2.7 G/DL (3.4-5.0) L Globulin 4.5 g/dL Albumin/Globulin Ratio 0.6 (1.0-2.7) L Triglycerides Level 64 MG/DL (30-150) Cholesterol Level 194 MG/DL (< 200) LDL Cholesterol 100 mg/dL (<100) HDL Cholesterol 74 MG/DL (40-60) H Cholesterol/HDL Ratio 2.6 (3.3-4.4) L Prostate Specific Antigen 571.34 ng/mL (0.13-4.0) H Vitamin B12 Level 767 PG/ML (193-986) Folate 21.0 NG/ML (8.6-58.9) Thyroid Stimulating Hormone (TSH) 0.755 uiU/mL (0.358-3.740) Height (Feet): 6 Height (Inches): 0.00 Weight (Pounds): 180 General Appearance: WD/WN, no apparent distress, alert Cardiovascular: normal rate Respiratory/Chest: normal breath sounds, no respiratory distress Abdominal Exam: normal bowel sounds, non tender, soft Genitourinary/Rectal: other - foss Extremities: non-tender Kristi Hernandez PREPRINT ANALYST Jun 20, 2018 10:25
--- NOTE | 2018-06-20 10:46 | General Progress Note ---
Assessment/Plan Status: unchanged Assessment/Plan Dementia with behavioral dist psychotic d/o -ativan 1mg iv q4hr prn agitation -the pt lacks capacity to make decisions. soft restraints the pt son gave consent to pace maker the pt may not refuse any tests or meds as he lacks capacity to make decisions Subjective Neurologic/Psychiatric: Reports: anxiety, depressed Allergies: Coded Allergies: No Known Allergies (Unverified , 08/27/17) Subjective the pt is confused and refusing pacemaker and other tests. the pt lacks capacity to make decisions. the pts healthcare customer service was in the room as well as his fiance. the pt has episodes of agitations. Objective Last 24 Hour Vital Signs Date Time Temp Pulse Resp B/P (MAP) Pulse Ox O2 Delivery O2 Flow Rate FiO2 06/20/18 09:11 97.7 06/20/18 09:00 Room Air 06/20/18 08:41 97.7 06/20/18 08:00 97.5 38 20 123/59 (80) 97 97.5 06/20/18 06:00 99/58 06/20/18 04:00 97.7 40 16 102/54 (70) 97 97.7 06/20/18 04:00 31 06/20/18 00:00 35 06/20/18 00:00 98/61 06/20/18 00:00 98.1 43 16 98/61 (73) 97 98.1 06/19/18 21:00 Room Air 06/19/18 20:00 99.3 47 17 115/71 (86) 97 99.3 06/19/18 20:00 47 06/19/18 17:41 118/56 06/19/18 16:00 39 06/19/18 16:00 99.3 46 18 120/50 (73) 97 99.3 06/19/18 12:00 97.5 40 18 124/51 (75) 96 97.5 06/19/18 12:00 124/51 06/19/18 12:00 50 Intake and Output 06/19/18 06/20/18 19:00 07:00 Intake Total 1100.0 ml 210 ml Output Total 600 ml 500 ml Balance 500.0 ml -290 ml Intake Oral 360 ml 100 ml IV Total 740.0 ml 110 ml Output Urine Total 600 ml 500 ml Laboratory Tests 06/19/18 12:25: White Blood Count 8.1, Red Blood Count 3.81L, Hemoglobin 12.0L, Hematocrit 34.6L , Mean Corpuscular Volume 91, Mean Corpuscular Hemoglobin 31.5H, Mean Corpuscular Hemoglobin Concent 34.7, Red Cell Distribution Width 12.9, Platelet Count 257, Mean Platelet Volume 7.7, Neutrophils (%) (Auto) 70.5, Lymphocytes (% ) (Auto) 17.6L, Monocytes (%) (Auto) 9.6, Eosinophils (%) (Auto) 1.4, Basophils (%) (Auto) 0.9, Sodium Level 140, Potassium Level 3.7, Chloride Level 105, Carbon Dioxide Level 26, Anion Gap 9, Blood Urea Nitrogen 29H, Creatinine 1.3, Estimat Glomerular Filtration Rate , Glucose Level 99, Uric Acid 7.8H, Calcium Level 8.4L, Phosphorus Level 3.9, Magnesium Level 2.2, Iron Level 30L, Total Iron Binding Capacity 194L, Percent Iron Saturation 15, Unsaturated Iron Binding 164, Ferritin 637H, Total Bilirubin 0.5, Aspartate Amino Transf (AST/ SGOT) 192H, Alanine Aminotransferase (ALT/SGPT) 26, Alkaline Phosphatase 273H, C -Reactive Protein, Quantitative 6.2H, Pro-B-Type Natriuretic Peptide 947H, Total Protein 7.2, Albumin 2.7L, Globulin 4.5, Albumin/Globulin Ratio 0.6L, Triglycerides Level 64, Cholesterol Level 194, LDL Cholesterol 100, HDL Cholesterol 74H, Cholesterol/HDL Ratio 2.6L, Prostate Specific Antigen 571.34H, Vitamin B12 Level 767, Folate 21.0, Thyroid Stimulating Hormone (TSH) 0.755 Height (Feet): 6 Height (Inches): 0.00 Weight (Pounds): 180 General Appearance: alert, confused, agitated Neurologic: disoriented, depressed affect Vilma Medina MD Jun 20, 2018 10:46
--- NOTE | 2018-06-20 11:05 | General Progress Note ---
Assessment/Plan Assessment/Plan Assessment and Recs: # Prostate cancer with extensive metastases -- extensive sclerotic lesions throughout the pelvic bones, spine, ribs, and visualized sternum, compatible with osseous metastases, significantly worsened compared to prior exam. PSA 531 , likely will be further increased as he has not received any treatment --> again have recommended simple antiandrogen therapy (lupron SQ injection and casodex a PO medication) that will bring his PSA to <5 for most cases >95% of patients --> he has continued to refuse treatment in the past and present --> continue to correctional substance abuse counselor daily as best as possible --> onco and uro outpatient f/u # Anemia due to malignancy --> likely worse given progression of disease # Bradycardic, second-degree AV block, Mobitz type I # UTI on abx as per pcp --> on abx # KYMBERLY consider fluids as needed Greatly appreciate consultation! Subjective Constitutional: Denies: no symptoms, chills, diaphoresis, fever, malaise, weakness, other HEENT: Denies: no symptoms, eye pain, blurred vision, tearing, double vision, ear pain, ear discharge, nose pain, nose congestion, throat pain, throat swelling, mouth pain, mouth swelling, other Cardiovascular: Denies: no symptoms, chest pain, edema, irregular heart rate, lightheadedness, palpitations, syncope, other Respiratory: Denies: no symptoms, cough, orthopnea, shortness of breath, SOB with excertion, SOB at rest, sputum, stridor, wheezing, other Gastrointestinal/Abdominal: Denies: no symptoms, abdomen distended, abdominal pain, black stools, tarry stools, blood in stool, constipated, diarrhea, difficulty swallowing, nausea, poor appetite, poor fluid intake, rectal bleeding , vomiting, other Genitourinary: Denies: no symptoms, burning, discharge, frequency, flank pain, hematuria, incontinence, pain, urgency, other Neurologic/Psychiatric: Denies: no symptoms, anxiety, depressed, emotional problems, headache, numbness, paresthesia, pre-existing deficit, seizure, tingling, tremors, weakness, other Endocrine: Denies: no symptoms, excessive sweating, flushing, intolerance to cold, intolerance to heat, increased hunger, increased thirst, increased urine, unexplained weight gain, unexplained weight loss, other Allergies: Coded Allergies: No Known Allergies (Unverified , 08/27/17) Subjective no events, no f/c, no night sweats Objective Last 24 Hour Vital Signs Date Time Temp Pulse Resp B/P (MAP) Pulse Ox O2 Delivery O2 Flow Rate FiO2 06/20/18 09:11 97.7 06/20/18 09:00 Room Air 06/20/18 08:41 97.7 06/20/18 08:00 97.5 38 20 123/59 (80) 97 97.5 06/20/18 06:00 99/58 06/20/18 04:00 97.7 40 16 102/54 (70) 97 97.7 06/20/18 04:00 31 06/20/18 00:00 35 06/20/18 00:00 98/61 06/20/18 00:00 98.1 43 16 98/61 (73) 97 98.1 06/19/18 21:00 Room Air 06/19/18 20:00 99.3 47 17 115/71 (86) 97 99.3 06/19/18 20:00 47 06/19/18 17:41 118/56 06/19/18 16:00 39 06/19/18 16:00 99.3 46 18 120/50 (73) 97 99.3 06/19/18 12:00 97.5 40 18 124/51 (75) 96 97.5 06/19/18 12:00 124/51 06/19/18 12:00 50 Intake and Output 06/19/18 06/20/18 19:00 07:00 Intake Total 1100.0 ml 210 ml Output Total 600 ml 500 ml Balance 500.0 ml -290 ml Intake Oral 360 ml 100 ml IV Total 740.0 ml 110 ml Output Urine Total 600 ml 500 ml Laboratory Tests 06/19/18 12:25: White Blood Count 8.1, Red Blood Count 3.81L, Hemoglobin 12.0L, Hematocrit 34.6L , Mean Corpuscular Volume 91, Mean Corpuscular Hemoglobin 31.5H, Mean Corpuscular Hemoglobin Concent 34.7, Red Cell Distribution Width 12.9, Platelet Count 257, Mean Platelet Volume 7.7, Neutrophils (%) (Auto) 70.5, Lymphocytes (% ) (Auto) 17.6L, Monocytes (%) (Auto) 9.6, Eosinophils (%) (Auto) 1.4, Basophils (%) (Auto) 0.9, Sodium Level 140, Potassium Level 3.7, Chloride Level 105, Carbon Dioxide Level 26, Anion Gap 9, Blood Urea Nitrogen 29H, Creatinine 1.3, Estimat Glomerular Filtration Rate , Glucose Level 99, Uric Acid 7.8H, Calcium Level 8.4L, Phosphorus Level 3.9, Magnesium Level 2.2, Iron Level 30L, Total Iron Binding Capacity 194L, Percent Iron Saturation 15, Unsaturated Iron Binding 164, Ferritin 637H, Total Bilirubin 0.5, Aspartate Amino Transf (AST/ SGOT) 192H, Alanine Aminotransferase (ALT/SGPT) 26, Alkaline Phosphatase 273H, C -Reactive Protein, Quantitative 6.2H, Pro-B-Type Natriuretic Peptide 947H, Total Protein 7.2, Albumin 2.7L, Globulin 4.5, Albumin/Globulin Ratio 0.6L, Triglycerides Level 64, Cholesterol Level 194, LDL Cholesterol 100, HDL Cholesterol 74H, Cholesterol/HDL Ratio 2.6L, Prostate Specific Antigen 571.34H, Vitamin B12 Level 767, Folate 21.0, Thyroid Stimulating Hormone (TSH) 0.755 Height (Feet): 6 Height (Inches): 0.00 Weight (Pounds): 180 General Appearance: no apparent distress EENT: TMs normal Neck: supple Cardiovascular: normal rate Respiratory/Chest: lungs clear Abdomen: non tender Extremities: non-tender Edema: no edema noted Leg (L), no edema noted Leg (R) Edema: mild edema Neurologic: no motor/sensory deficits Gerard Hernandez MD Jun 20, 2018 11:05
[2018-06-20 12:00] VITALS: BP 107/58
--- NOTE | 2018-06-20 13:07 | Infectious Diseases Prog Note ---
Assessment/Plan Assessment/Plan A; Cystitis Metastatic prostatic cancer Bradycardia AV block Dementia P; Change Zosyn to Levaquin Urologic evaluation Subjective ROS Limited/Unobtainable: No Constitutional: Reports: no symptoms Respiratory: Reports: dry cough Gastrointestinal/Abdominal: Reports: other - abdominal pain Allergies: Coded Allergies: No Known Allergies (Unverified , 08/27/17) Objective Vital Signs Last 24 Hour Vital Signs Date Time Temp Pulse Resp B/P (MAP) Pulse Ox O2 Delivery O2 Flow Rate FiO2 06/20/18 12:00 107/58 06/20/18 09:11 97.7 06/20/18 09:00 Room Air 06/20/18 08:41 97.7 06/20/18 08:00 97.5 38 20 123/59 (80) 97 97.5 06/20/18 06:00 99/58 06/20/18 04:00 97.7 40 16 102/54 (70) 97 97.7 06/20/18 04:00 31 06/20/18 00:00 35 06/20/18 00:00 98/61 06/20/18 00:00 98.1 43 16 98/61 (73) 97 98.1 06/19/18 21:00 Room Air 06/19/18 20:00 99.3 47 17 115/71 (86) 97 99.3 06/19/18 20:00 47 06/19/18 17:41 118/56 06/19/18 16:00 39 06/19/18 16:00 99.3 46 18 120/50 (73) 97 99.3 Height (Feet): 6 Height (Inches): 5.00 Weight (Pounds): 180 General Appearance: no acute distress HEENT: mucous membranes moist Respiratory/Chest: lungs clear Cardiovascular: bradycardia Abdomen: normal bowel sounds, no scars Genitourinary: other - Orta catheter, no gross hematuria Extremities: no edema Neurologic/Psychiatric: alert, oriented x 3, responsive Microbiology Date/Time Source Procedure Growth Status 06/18/18 18:00 Blood Blood Culture - Preliminary NO GROWTH AFTER 24 HOURS Resulted 06/18/18 17:45 Blood Blood Culture - Preliminary NO GROWTH AFTER 24 HOURS Resulted 06/18/18 18:05 Indwelling Cath Urine Culture - Preliminary NO GROWTH AFTER 24 HOURS Resulted Current Medications Medications (Trade) Dose Ordered Sig/Pancho Route PRN Reason Start Time Stop Time Status Last Admin Dose Admin Acetaminophen (Tylenol) 500 mg Q4H PRN ORAL Mild Pain/Temp > 100.5 06/18/18 23:30 07/18/18 23:29 Barium Sulfate (Readi-Cat 2) 450 ml NOW PRN ORAL Radiology Procedure 06/19/18 11:30 06/21/18 11:25 Dextrose/Sodium Chloride 1,000 ml @ 75 mls/hr [id number] IV 06/19/18 10:15 07/19/18 10:14 06/19/18 10:36 Docusate Sodium (Colace) 100 mg THREE TIMES A DAY ORAL 06/19/18 13:00 07/19/18 12:59 06/20/18 08:41 Hydralazine HCl (Apresoline) 10 mg Q6HR ORAL 06/19/18 12:00 07/19/18 11:59 Iopamidol (Isovue-300 100ml) 100 ml NOW PRN INJ Radiology Procedure 06/19/18 11:30 06/21/18 11:29 Iopamidol (Isovue-300 100ml) 100 ml NOW PRN INJ Radiology Procedure 06/18/18 17:30 Lorazepam (Ativan 2mg/ml 1ml) 1 mg Q6H PRN IV For Anxiety 06/19/18 12:15 06/26/18 12:14 Morphine Sulfate (Morphine Sulfate) 2 mg Q4H PRN IVP Severe Breakthru Pain (>7) 06/19/18 15:42 06/26/18 15:41 06/20/18 08:41 Pantoprazole (Protonix) 40 mg DAILY ORAL 06/19/18 10:15 07/19/18 10:14 06/20/18 08:41 Piperacillin Sod/ Tazobactam Sod 3.375 gm/Dextrose 110 ml @ 27.5 mls/hr EVERY 8 HOURS IVPB 06/19/18 14:00 06/24/18 13:59 06/20/18 06:12 Mario Daigle MD Jun 20, 2018 13:07
[2018-06-20] MEDS: D5NS 1,000 ML IV SCH (14:22)
[2018-06-20] MEDS: Levofloxacin 500mg tab ORAL SCH (14:29)
--- NOTE | 2018-06-20 15:08 | Nephrology Progress Note ---
Assessment/Plan Problem List: (1) Bradycardia (2) Renal insufficiency (3) UTI (urinary tract infection) Assessment Renal failure- Acute on Chronic UTI Bradyarrythmia anemia Prostate Ca with Mets Plan Hydrate Minitor renal parameter secured entrance monitor trial hydralazine 2D echo noted- Midodrine Per orde Subjective ROS Limited/Unobtainable: No Constitutional: Reports: malaise Objective Objective Last 24 Hour Vital Signs Date Time Temp Pulse Resp B/P (MAP) Pulse Ox O2 Delivery O2 Flow Rate FiO2 06/20/18 12:00 47 06/20/18 12:00 97.7 40 18 107/58 (74) 97 97.7 06/20/18 12:00 107/58 06/20/18 09:11 97.7 06/20/18 09:00 Room Air 06/20/18 08:41 97.7 06/20/18 08:00 29 06/20/18 08:00 97.5 38 20 123/59 (80) 97 97.5 06/20/18 06:00 99/58 06/20/18 04:00 97.7 40 16 102/54 (70) 97 97.7 06/20/18 04:00 31 06/20/18 00:00 35 06/20/18 00:00 98/61 06/20/18 00:00 98.1 43 16 98/61 (73) 97 98.1 06/19/18 21:00 Room Air 06/19/18 20:00 99.3 47 17 115/71 (86) 97 99.3 06/19/18 20:00 47 06/19/18 17:41 118/56 06/19/18 16:00 39 06/19/18 16:00 99.3 46 18 120/50 (73) 97 99.3 Intake and Output 06/19/18 06/20/18 19:00 07:00 Intake Total 1100.0 ml 210 ml Output Total 600 ml 500 ml Balance 500.0 ml -290 ml Intake Oral 360 ml 100 ml IV Total 740.0 ml 110 ml Output Urine Total 600 ml 500 ml Height (Feet): 6 Height (Inches): 5.00 Weight (Pounds): 180 General Appearance: no apparent distress Cardiovascular: bradycardia Respiratory/Chest: decreased breath sounds Christopher Coronado MD Jun 20, 2018 15:08
[2018-06-20 16:00] VITALS: BP 132/61
--- NOTE | 2018-06-20 16:19 | Cardiac Electrophysiology PN ---
Assessment/Plan Assessment/Plan 1. Bradycardia with high-grade AV block and 2:1 block off any AV feliciano blocking agents. The patient's son states that his father would not want pacemaker. The patient is still Full Code. Son signed consent for pacer but now Wants to talk to Dr Rivers regarding prognosis first 2. Hypotension. DC Hydralazine. 2. Metastatic prostate cancer, status post prostatectomy in August. 3. Abdominal pain. Further evaluation by Dr. Joel. 4. Dementia. DW RN and son Subjective Subjective Feeling better. Remained in Sinus uriah.HR went as low as 29 Objective Last 24 Hour Vital Signs Date Time Temp Pulse Resp B/P (MAP) Pulse Ox O2 Delivery O2 Flow Rate FiO2 06/20/18 12:00 47 06/20/18 12:00 97.7 40 18 107/58 (74) 97 97.7 06/20/18 12:00 107/58 06/20/18 09:11 97.7 06/20/18 09:00 Room Air 06/20/18 08:41 97.7 06/20/18 08:00 29 06/20/18 08:00 97.5 38 20 123/59 (80) 97 97.5 06/20/18 06:00 99/58 06/20/18 04:00 97.7 40 16 102/54 (70) 97 97.7 06/20/18 04:00 31 06/20/18 00:00 35 06/20/18 00:00 98/61 06/20/18 00:00 98.1 43 16 98/61 (73) 97 98.1 06/19/18 21:00 Room Air 06/19/18 20:00 99.3 47 17 115/71 (86) 97 99.3 06/19/18 20:00 47 06/19/18 17:41 118/56 Intake and Output 06/19/18 06/20/18 19:00 07:00 Intake Total 1100.0 ml 210 ml Output Total 600 ml 500 ml Balance 500.0 ml -290 ml Intake Oral 360 ml 100 ml IV Total 740.0 ml 110 ml Output Urine Total 600 ml 500 ml Microbiology Date/Time Source Procedure Growth Status 06/18/18 18:00 Blood Blood Culture - Preliminary NO GROWTH AFTER 24 HOURS Resulted 06/18/18 17:45 Blood Blood Culture - Preliminary NO GROWTH AFTER 24 HOURS Resulted 06/18/18 18:05 Indwelling Cath Urine Culture - Preliminary NO GROWTH AFTER 24 HOURS Resulted Objective HEAD AND NECK: No JVD. LUNGS: Clear. CARDIOVASCULAR: Bradycardic, S1-S2 with no gallop or murmur. ABDOMEN: Soft. EXTREMITIES: 1+ pitting edema. Miko Reed MD Jun 20, 2018 16:19
[2018-06-20] MEDS: Acetaminophen 500mg (ES) tab ORAL PRN (16:45)
[2018-06-20] MEDS ORDERED: HydrALAZINE 10mg Tab ORAL SCH (18:00)
[2018-06-20 20:00] VITALS: BP 109/65
--- NOTE | 2018-06-20 21:36 | General Progress Note ---
Assessment/Plan Problem List: (1) Anemia ICD Codes: D64.9 - Anemia, unspecified SNOMED: 597201807 (2) Abdominal pain ICD Codes: R10.9 - Unspecified abdominal pain SNOMED: 59287843 (3) Hematuria ICD Codes: R31.9 - Hematuria, unspecified SNOMED: 62103296 (4) Bradycardia ICD Codes: R00.1 - Bradycardia, unspecified SNOMED: 22099935 (5) Renal insufficiency ICD Codes: N28.9 - Disorder of kidney and ureter, unspecified SNOMED: 173365146, 851007365 (6) UTI (urinary tract infection) ICD Codes: N39.0 - Urinary tract infection, site not specified SNOMED: 75268636 (7) Abnormal urogenital findings ICD Codes: R89.9 - Unspecified abnormal finding in specimens from other organs , systems and tissues SNOMED: 707123514, 491509110 Status: progressing Assessment/Plan abnormal ct scan finding afebrile bradycardia azotemia obs s/p prostate cancer consulted dr zepeda for abnormal ct scan findings Subjective ROS Limited/Unobtainable: Yes Allergies: Coded Allergies: No Known Allergies (Unverified , 08/27/17) Objective Last 24 Hour Vital Signs Date Time Temp Pulse Resp B/P (MAP) Pulse Ox O2 Delivery O2 Flow Rate FiO2 06/20/18 17:15 98.6 06/20/18 16:45 98.6 06/20/18 16:00 69 06/20/18 16:00 98.6 58 18 132/61 (84) 97 98.6 06/20/18 12:00 47 06/20/18 12:00 97.7 40 18 107/58 (74) 97 97.7 06/20/18 12:00 107/58 06/20/18 09:11 97.7 06/20/18 09:00 Room Air 06/20/18 08:41 97.7 06/20/18 08:00 29 06/20/18 08:00 97.5 38 20 123/59 (80) 97 97.5 06/20/18 06:00 99/58 06/20/18 04:00 97.7 40 16 102/54 (70) 97 97.7 06/20/18 04:00 31 06/20/18 00:00 35 06/20/18 00:00 98/61 06/20/18 00:00 98.1 43 16 98/61 (73) 97 98.1 Intake and Output 06/19/18 06/20/18 19:00 07:00 Intake Total 1100.0 ml 210 ml Output Total 600 ml 500 ml Balance 500.0 ml -290 ml Intake Oral 360 ml 100 ml IV Total 740.0 ml 110 ml Output Urine Total 600 ml 500 ml Height (Feet): 6 Height (Inches): 5.00 Weight (Pounds): 180 General Appearance: confused Yury Murray MD Jun 20, 2018 21:36
[2018-06-21] VITALS: BP 128/55
[2018-06-21] MEDS: D5NS 1,000 ML IV SCH ×2 (02:15→15:23)
[2018-06-21] MEDS: Morphine Sulfate 2mg/ml Inj IVP PRN ×5 (03:32→22:05)
[2018-06-21 04:00] VITALS: BP 134/54
[2018-06-21 06:28] LABS: BASOPHILS % (AUTO) 1.2 % (0.0-2.0); EOSINOPHILS % (AUTO) 2.4 % (0.0-3.0); HEMATOCRIT 34.7 % (42.0-52.0); HEMOGLOBIN 11.5 G/DL (14.2-18.0); LYMPHOCYTES % (AUTO) 14.1 % (20.0-45.0); MEAN CORPUSCULAR VOLUME 91 FL (80-99); MONOCYTES % (AUTO) 10.7 % (1.0-10.0); NEUTROPHILS % (AUTO) 71.6 % (45.0-75.0); PLATELET COUNT 232 K/UL (150-450); RED BLOOD COUNT 3.82 M/UL (4.70-6.10); RED CELL DISTRIBUTION WIDTH 12.5 % (11.6-14.8); WHITE BLOOD COUNT 7.1 K/UL (4.8-10.8)
[2018-06-21 06:51] LABS: ALANINE AMINOTRANSFERASE 25 U/L (12-78); ALBUMIN 3.1 G/DL (3.4-5.0); ALBUMIN/GLOBULIN RATIO 0.6 (1.0-2.7); ALKALINE PHOSPHATASE 260 U/L (46-116); ANION GAP 11 mmol/L (5-15); ASPARTATE AMINO TRANSFERASE 179 U/L (15-37); BILIRUBIN,TOTAL 0.6 MG/DL (0.2-1.0); BLOOD UREA NITROGEN 17 mg/dL (7-18); CALCIUM 9.3 MG/DL (8.5-10.1); CARBON DIOXIDE 25 MMOL/L (21-32); CHLORIDE 103 MMOL/L (98-107); POTASSIUM 3.9 MMOL/L (3.5-5.1); SODIUM 139 MMOL/L (136-145)
[2018-06-21 07:13] LABS: PHOSPHORUS 3.3 MG/DL (2.5-4.9)
--- NOTE | 2018-06-21 07:31 | General Progress Note ---
Assessment/Plan Assessment/Plan # Prostate cancer with extensive metastases -- extensive sclerotic lesions throughout the pelvic bones, spine, ribs, and visualized sternum, compatible with osseous metastases, significantly worsened compared to prior exam. PSA 531 , likely will be further increased as he has not received any treatment --> received prostatectomy in 08/2017 --> again have recommended simple antiandrogen therapy (lupron SQ injection and casodex a PO medication) that will bring his PSA to <5 for most cases >95% of patients --> talked to son 06/20/18 re prognosis, can be significantly improved if treated prostate cancer, but at this time patient continues to decline --> continue to behavioral school counselors daily as best as possible --> onco and uro outpatient f/u --> Dr. Gonzalez outpatient f/u # Anemia due to malignancy --> likely worse given progression of disease # Bradycardic, second-degree AV block, Mobitz type I --> appreciate recs by Dr. Reed # UTI on abx as per pcp --> on abx # KYMBERLY consider fluids as needed Greatly appreciate consultation! Subjective Constitutional: Denies: no symptoms, chills, diaphoresis, fever, malaise, weakness, other HEENT: Denies: no symptoms, eye pain, blurred vision, tearing, double vision, ear pain, ear discharge, nose pain, nose congestion, throat pain, throat swelling, mouth pain, mouth swelling, other Respiratory: Denies: no symptoms, cough, orthopnea, shortness of breath, SOB with excertion, SOB at rest, sputum, stridor, wheezing, other Gastrointestinal/Abdominal: Denies: no symptoms, abdomen distended, abdominal pain, black stools, tarry stools, blood in stool, constipated, diarrhea, difficulty swallowing, nausea, poor appetite, poor fluid intake, rectal bleeding , vomiting, other Genitourinary: Denies: no symptoms, burning, discharge, frequency, flank pain, hematuria, incontinence, pain, urgency, other Neurologic/Psychiatric: Denies: no symptoms, anxiety, depressed, emotional problems, headache, numbness, paresthesia, pre-existing deficit, seizure, tingling, tremors, weakness, other Endocrine: Denies: no symptoms, excessive sweating, flushing, intolerance to cold, intolerance to heat, increased hunger, increased thirst, increased urine, unexplained weight gain, unexplained weight loss, other Hematologic/Lymphatic: Denies: no symptoms, anemia, easy bleeding, easy bruising, other Allergies: Coded Allergies: No Known Allergies (Unverified , 08/27/17) Subjective no events, no f/c, no night sweats, talked to son yesterday re prognosis, can be significantly improved if treated prostate cancer, but at this time patient continues to decline Objective Last 24 Hour Vital Signs Date Time Temp Pulse Resp B/P (MAP) Pulse Ox O2 Delivery O2 Flow Rate FiO2 06/21/18 04:00 32 06/21/18 04:00 98.4 38 18 134/54 (80) 96 98.4 06/21/18 00:00 37 06/21/18 00:00 98.4 35 20 128/55 (79) 95 98.4 06/20/18 21:00 Room Air 06/20/18 20:00 98.2 61 22 109/65 (80) 94 98.2 06/20/18 20:00 40 06/20/18 17:15 98.6 06/20/18 16:45 98.6 06/20/18 16:00 69 06/20/18 16:00 98.6 58 18 132/61 (84) 97 98.6 06/20/18 12:00 47 06/20/18 12:00 97.7 40 18 107/58 (74) 97 97.7 06/20/18 12:00 107/58 06/20/18 09:11 97.7 06/20/18 09:00 Room Air 06/20/18 08:41 97.7 06/20/18 08:00 29 06/20/18 08:00 97.5 38 20 123/59 (80) 97 97.5 Intake and Output 06/20/18 06/21/18 19:00 07:00 Intake Total 240 ml Output Total 600 ml 1000 ml Balance -360 ml -1000 ml Intake Oral 240 ml Output Urine Total 600 ml 1000 ml Laboratory Tests 06/21/18 05:35: White Blood Count 7.1, Red Blood Count 3.82L, Hemoglobin 11.5L, Hematocrit 34.7L , Mean Corpuscular Volume 91, Mean Corpuscular Hemoglobin 30.1, Mean Corpuscular Hemoglobin Concent 33.2, Red Cell Distribution Width 12.5, Platelet Count 232, Mean Platelet Volume 8.1, Neutrophils (%) (Auto) 71.6, Lymphocytes (% ) (Auto) 14.1L, Monocytes (%) (Auto) 10.7H, Eosinophils (%) (Auto) 2.4, Basophils (%) (Auto) 1.2, Sodium Level 139, Potassium Level 3.9, Chloride Level 103, Carbon Dioxide Level 25, Anion Gap 11, Blood Urea Nitrogen 17, Creatinine 1.0, Estimat Glomerular Filtration Rate , Glucose Level 109H, Uric Acid 5.1, Calcium Level 9.3, Phosphorus Level 3.3, Magnesium Level 1.8, Total Bilirubin 0.6, Gamma Glutamyl Transpeptidase 45, Aspartate Amino Transf (AST/SGOT) 179H, Alanine Aminotransferase (ALT/SGPT) 25, Alkaline Phosphatase 260H, Troponin I 0.023, C-Reactive Protein, Quantitative [Pending], Pro-B-Type Natriuretic Peptide 786H, Total Protein 7.9, Albumin 3.1L, Globulin 4.8, Albumin/Globulin Ratio 0.6L, CA 19-9 Antigen [Pending], Thyroid Stimulating Hormone (TSH) 2.015, Free Thyroxine 1.05 Height (Feet): 6 Height (Inches): 5.00 Weight (Pounds): 180 General Appearance: no apparent distress EENT: pharynx normal Neck: non-tender Cardiovascular: regular rhythm Respiratory/Chest: no respiratory distress Abdomen: no organomegaly Extremities: non-tender Edema: no edema noted Leg (L), no edema noted Leg (R) Neurologic: alert Skin: warm/dry Gerard Hernandez MD Jun 21, 2018 07:31
[2018-06-21 08:00] VITALS: BP 132/58
[2018-06-21] MEDS: Levofloxacin 500mg tab ORAL SCH (08:13)
[2018-06-21] MEDS: Docusate 100mg cap ORAL SCH ×3 (08:13→17:29)
--- NOTE | 2018-06-21 10:53 | GI Progress Note ---
Assessment/Plan Problems: (1) Abdominal pain ICD Codes: R10.9 - Unspecified abdominal pain SNOMED: 95391201 (2) Anemia ICD Codes: D64.9 - Anemia, unspecified SNOMED: 419771994 (3) Constipation ICD Codes: K59.00 - Constipation, unspecified SNOMED: 05526681 Status: stable Status Narrative Discussed with Dr. Joel. Assessment/Plan Prostate CA s/p prostatectomy with osseous metastases fu oncology recs supportive care / symptomatic treatment pain mgmt zofran prn monitor H&H, prn transfusions bowel regime ppi fu labs The patient was seen and examined at bedside and all new and available data was reviewed in the patients chart. I agree with the above findings, impression and plan. (Patient seen earlier today. Signature stamp does not reflect patient encounter time.). - Rush Joel MD Subjective Subjective generalized pain Objective Last 24 Hour Vital Signs Date Time Temp Pulse Resp B/P (MAP) Pulse Ox O2 Delivery O2 Flow Rate FiO2 06/21/18 09:00 Room Air 06/21/18 08:00 37 06/21/18 08:00 97.9 40 20 132/58 (82) 98 97.9 06/21/18 04:00 32 06/21/18 04:00 98.4 38 18 134/54 (80) 96 98.4 06/21/18 00:00 37 06/21/18 00:00 98.4 35 20 128/55 (79) 95 98.4 06/20/18 21:00 Room Air 06/20/18 20:00 98.2 61 22 109/65 (80) 94 98.2 06/20/18 20:00 40 06/20/18 17:15 98.6 06/20/18 16:45 98.6 06/20/18 16:00 69 06/20/18 16:00 98.6 58 18 132/61 (84) 97 98.6 06/20/18 12:00 47 06/20/18 12:00 97.7 40 18 107/58 (74) 97 97.7 06/20/18 12:00 107/58 Intake and Output 06/20/18 06/21/18 19:00 07:00 Intake Total 240 ml Output Total 600 ml 1000 ml Balance -360 ml -1000 ml Intake Oral 240 ml Output Urine Total 600 ml 1000 ml Laboratory Tests Test 06/21/18 05:35 White Blood Count 7.1 K/UL (4.8-10.8) Red Blood Count 3.82 M/UL (4.70-6.10) L Hemoglobin 11.5 G/DL (14.2-18.0) L Hematocrit 34.7 % (42.0-52.0) L Mean Corpuscular Volume 91 FL (80-99) Mean Corpuscular Hemoglobin 30.1 PG (27.0-31.0) Mean Corpuscular Hemoglobin Concent 33.2 G/DL (32.0-36.0) Red Cell Distribution Width 12.5 % (11.6-14.8) Platelet Count 232 K/UL (150-450) Mean Platelet Volume 8.1 FL (6.5-10.1) Neutrophils (%) (Auto) 71.6 % (45.0-75.0) Lymphocytes (%) (Auto) 14.1 % (20.0-45.0) L Monocytes (%) (Auto) 10.7 % (1.0-10.0) H Eosinophils (%) (Auto) 2.4 % (0.0-3.0) Basophils (%) (Auto) 1.2 % (0.0-2.0) Sodium Level 139 MMOL/L (136-145) Potassium Level 3.9 MMOL/L (3.5-5.1) Chloride Level 103 MMOL/L (98-107) Carbon Dioxide Level 25 MMOL/L (21-32) Anion Gap 11 mmol/L (5-15) Blood Urea Nitrogen 17 mg/dL (7-18) Creatinine 1.0 MG/DL (0.55-1.30) Estimat Glomerular Filtration Rate mL/min (>60) Glucose Level 109 MG/DL (74-106) H Uric Acid 5.1 MG/DL (2.6-7.2) Calcium Level 9.3 MG/DL (8.5-10.1) Phosphorus Level 3.3 MG/DL (2.5-4.9) Magnesium Level 1.8 MG/DL (1.8-2.4) Total Bilirubin 0.6 MG/DL (0.2-1.0) Gamma Glutamyl Transpeptidase 45 U/L (5-85) Aspartate Amino Transf (AST/SGOT) 179 U/L (15-37) H Alanine Aminotransferase (ALT/SGPT) 25 U/L (12-78) Alkaline Phosphatase 260 U/L (46-116) H Troponin I 0.023 ng/mL (0.000-0.056) C-Reactive Protein, Quantitative 5.8 mg/dL (0.00-0.90) H Pro-B-Type Natriuretic Peptide 786 pg/mL (0-125) H Total Protein 7.9 G/DL (6.4-8.2) Albumin 3.1 G/DL (3.4-5.0) L Globulin 4.8 g/dL Albumin/Globulin Ratio 0.6 (1.0-2.7) L CA 19-9 Antigen Pending Thyroid Stimulating Hormone (TSH) 2.015 uiU/mL (0.358-3.740) Free Thyroxine 1.05 NG/DL (0.76-1.46) Height (Feet): 6 Height (Inches): 5.00 Weight (Pounds): 180 General Appearance: alert Cardiovascular: normal rate Respiratory/Chest: normal breath sounds, no respiratory distress Abdominal Exam: normal bowel sounds, non tender, soft Kristi Hernandez NP Jun 21, 2018 10:53
[2018-06-21] MEDS ORDERED: Sennosides 8.6mg ORAL PRN (11:00)
--- NOTE | 2018-06-21 11:13 | Infectious Diseases Prog Note ---
Assessment/Plan Assessment/Plan antibiotics : levoquin A 1. cystitis 2. prostate cancer s/p prostatectomy 3. dementia P 1. continue levoquin 2. will follow up cultures Subjective Constitutional: Denies: fever, chills Respiratory: Denies: shortness of breath, dry cough Gastrointestinal/Abdominal: Denies: nausea, vomiting, diarrhea Musculoskeletal: Reports: pain - in abdomen Allergies: Coded Allergies: No Known Allergies (Unverified , 08/27/17) Objective Vital Signs Last 24 Hour Vital Signs Date Time Temp Pulse Resp B/P (MAP) Pulse Ox O2 Delivery O2 Flow Rate FiO2 06/21/18 09:00 Room Air 06/21/18 08:00 37 06/21/18 08:00 97.9 40 20 132/58 (82) 98 97.9 06/21/18 04:00 32 06/21/18 04:00 98.4 38 18 134/54 (80) 96 98.4 06/21/18 00:00 37 06/21/18 00:00 98.4 35 20 128/55 (79) 95 98.4 06/20/18 21:00 Room Air 06/20/18 20:00 98.2 61 22 109/65 (80) 94 98.2 06/20/18 20:00 40 06/20/18 17:15 98.6 06/20/18 16:45 98.6 06/20/18 16:00 69 06/20/18 16:00 98.6 58 18 132/61 (84) 97 98.6 06/20/18 12:00 47 06/20/18 12:00 97.7 40 18 107/58 (74) 97 97.7 06/20/18 12:00 107/58 Height (Feet): 6 Height (Inches): 5.00 Weight (Pounds): 180 Respiratory/Chest: lungs clear Cardiovascular: normal rate, regular rhythm, no gallop/murmur Abdomen: tender Extremities: no edema Microbiology Date/Time Source Procedure Growth Status 06/18/18 18:00 Blood Blood Culture - Preliminary NO GROWTH AFTER 48 HOURS Resulted 06/18/18 17:45 Blood Blood Culture - Preliminary NO GROWTH AFTER 48 HOURS Resulted 06/18/18 18:05 Indwelling Cath Urine Culture - Final NO GROWTH AFTER 48 HOURS Complete Laboratory Tests Test 06/21/18 05:35 White Blood Count 7.1 K/UL (4.8-10.8) Red Blood Count 3.82 M/UL (4.70-6.10) L Hemoglobin 11.5 G/DL (14.2-18.0) L Hematocrit 34.7 % (42.0-52.0) L Mean Corpuscular Volume 91 FL (80-99) Mean Corpuscular Hemoglobin 30.1 PG (27.0-31.0) Mean Corpuscular Hemoglobin Concent 33.2 G/DL (32.0-36.0) Red Cell Distribution Width 12.5 % (11.6-14.8) Platelet Count 232 K/UL (150-450) Mean Platelet Volume 8.1 FL (6.5-10.1) Neutrophils (%) (Auto) 71.6 % (45.0-75.0) Lymphocytes (%) (Auto) 14.1 % (20.0-45.0) L Monocytes (%) (Auto) 10.7 % (1.0-10.0) H Eosinophils (%) (Auto) 2.4 % (0.0-3.0) Basophils (%) (Auto) 1.2 % (0.0-2.0) Sodium Level 139 MMOL/L (136-145) Potassium Level 3.9 MMOL/L (3.5-5.1) Chloride Level 103 MMOL/L (98-107) Carbon Dioxide Level 25 MMOL/L (21-32) Anion Gap 11 mmol/L (5-15) Blood Urea Nitrogen 17 mg/dL (7-18) Creatinine 1.0 MG/DL (0.55-1.30) Estimat Glomerular Filtration Rate mL/min (>60) Glucose Level 109 MG/DL (74-106) H Uric Acid 5.1 MG/DL (2.6-7.2) Calcium Level 9.3 MG/DL (8.5-10.1) Phosphorus Level 3.3 MG/DL (2.5-4.9) Magnesium Level 1.8 MG/DL (1.8-2.4) Total Bilirubin 0.6 MG/DL (0.2-1.0) Gamma Glutamyl Transpeptidase 45 U/L (5-85) Aspartate Amino Transf (AST/SGOT) 179 U/L (15-37) H Alanine Aminotransferase (ALT/SGPT) 25 U/L (12-78) Alkaline Phosphatase 260 U/L (46-116) H Troponin I 0.023 ng/mL (0.000-0.056) C-Reactive Protein, Quantitative 5.8 mg/dL (0.00-0.90) H Pro-B-Type Natriuretic Peptide 786 pg/mL (0-125) H Total Protein 7.9 G/DL (6.4-8.2) Albumin 3.1 G/DL (3.4-5.0) L Globulin 4.8 g/dL Albumin/Globulin Ratio 0.6 (1.0-2.7) L CA 19-9 Antigen Pending Thyroid Stimulating Hormone (TSH) 2.015 uiU/mL (0.358-3.740) Free Thyroxine 1.05 NG/DL (0.76-1.46) Current Medications Medications (Trade) Dose Ordered Sig/Pancho Route PRN Reason Start Time Stop Time Status Last Admin Dose Admin Acetaminophen (Tylenol) 500 mg Q4H PRN ORAL Mild Pain/Temp > 100.5 06/18/18 23:30 07/18/18 23:29 06/20/18 16:45 Barium Sulfate (Readi-Cat 2) 450 ml NOW PRN ORAL Radiology Procedure 06/19/18 11:30 06/21/18 11:25 Bisacodyl (Dulcolax) 10 mg DAILY ORAL 06/22/18 09:00 07/22/18 08:59 Dextrose/Sodium Chloride 1,000 ml @ 75 mls/hr [id number] IV 06/19/18 10:15 07/19/18 10:14 06/20/18 14:22 Docusate Sodium (Colace) 100 mg THREE TIMES A DAY ORAL 06/19/18 13:00 07/19/18 12:59 06/21/18 08:13 Iopamidol (Isovue-300 100ml) 100 ml NOW PRN INJ Radiology Procedure 06/19/18 11:30 06/21/18 11:29 Iopamidol (Isovue-300 100ml) 100 ml NOW PRN INJ Radiology Procedure 06/18/18 17:30 Levofloxacin (Levaquin) 500 mg DAILY ORAL 06/20/18 14:00 06/27/18 13:59 06/21/18 08:13 Lorazepam (Ativan 2mg/ml 1ml) 1 mg Q6H PRN IV For Anxiety 06/19/18 12:15 06/26/18 12:14 Magnesium Hydroxide (Mom) 30 ml Q4H PRN ORAL Constipation 06/21/18 11:00 07/21/18 10:59 Morphine Sulfate (Morphine Sulfate) 2 mg Q4H PRN IVP Severe Breakthru Pain (>7) 06/19/18 15:42 06/26/18 15:41 06/21/18 08:20 Pantoprazole (Protonix) 40 mg DAILY ORAL 06/19/18 10:15 07/19/18 10:14 06/21/18 08:13 Polyethylene Glycol (Miralax) 17 gm DAILY ORAL 06/22/18 09:00 07/22/18 08:59 Sennosides (Senokot) 1 tab DAILY PRN ORAL Constipation 06/21/18 11:00 07/21/18 10:59 Vishnu Carranza MD Jun 21, 2018 11:13
[2018-06-21 12:00] VITALS: BP 139/57
[2018-06-21] MEDS: Milk of Magnesia 30ml Ud ORAL PRN ×2 (13:19→17:28)
--- NOTE | 2018-06-21 14:31 | Cardiac Electrophysiology PN ---
Assessment/Plan Assessment/Plan 1. Bradycardia with high-grade AV block and 2:1 block off any AV feliciano blocking agents. The patient is still Full Code. Son signed consent for pacer but now refusing 2. Hypotension. Off BOP meds ok 2. Metastatic prostate cancer, status post prostatectomy in August. 3. Abdominal pain. Further evaluation by Dr. Joel. 4. Dementia. DW RN and son Subjective Subjective Remained in Sinus uriah in low 40s but family undecided re pacer Objective Last 24 Hour Vital Signs Date Time Temp Pulse Resp B/P (MAP) Pulse Ox O2 Delivery O2 Flow Rate FiO2 06/21/18 12:00 98.2 60 20 139/57 (84) 100 98.2 06/21/18 09:00 Room Air 06/21/18 08:00 37 06/21/18 08:00 97.9 40 20 132/58 (82) 98 97.9 06/21/18 04:00 32 06/21/18 04:00 98.4 38 18 134/54 (80) 96 98.4 06/21/18 00:00 37 06/21/18 00:00 98.4 35 20 128/55 (79) 95 98.4 06/20/18 21:00 Room Air 06/20/18 20:00 98.2 61 22 109/65 (80) 94 98.2 06/20/18 20:00 40 06/20/18 17:15 98.6 06/20/18 16:45 98.6 06/20/18 16:00 69 06/20/18 16:00 98.6 58 18 132/61 (84) 97 98.6 Intake and Output 06/20/18 06/21/18 19:00 07:00 Intake Total 240 ml Output Total 600 ml 1000 ml Balance -360 ml -1000 ml Intake Oral 240 ml Output Urine Total 600 ml 1000 ml Laboratory Tests Test 06/21/18 05:35 White Blood Count 7.1 K/UL (4.8-10.8) Red Blood Count 3.82 M/UL (4.70-6.10) L Hemoglobin 11.5 G/DL (14.2-18.0) L Hematocrit 34.7 % (42.0-52.0) L Mean Corpuscular Volume 91 FL (80-99) Mean Corpuscular Hemoglobin 30.1 PG (27.0-31.0) Mean Corpuscular Hemoglobin Concent 33.2 G/DL (32.0-36.0) Red Cell Distribution Width 12.5 % (11.6-14.8) Platelet Count 232 K/UL (150-450) Mean Platelet Volume 8.1 FL (6.5-10.1) Neutrophils (%) (Auto) 71.6 % (45.0-75.0) Lymphocytes (%) (Auto) 14.1 % (20.0-45.0) L Monocytes (%) (Auto) 10.7 % (1.0-10.0) H Eosinophils (%) (Auto) 2.4 % (0.0-3.0) Basophils (%) (Auto) 1.2 % (0.0-2.0) Sodium Level 139 MMOL/L (136-145) Potassium Level 3.9 MMOL/L (3.5-5.1) Chloride Level 103 MMOL/L (98-107) Carbon Dioxide Level 25 MMOL/L (21-32) Anion Gap 11 mmol/L (5-15) Blood Urea Nitrogen 17 mg/dL (7-18) Creatinine 1.0 MG/DL (0.55-1.30) Estimat Glomerular Filtration Rate mL/min (>60) Glucose Level 109 MG/DL (74-106) H Uric Acid 5.1 MG/DL (2.6-7.2) Calcium Level 9.3 MG/DL (8.5-10.1) Phosphorus Level 3.3 MG/DL (2.5-4.9) Magnesium Level 1.8 MG/DL (1.8-2.4) Total Bilirubin 0.6 MG/DL (0.2-1.0) Gamma Glutamyl Transpeptidase 45 U/L (5-85) Aspartate Amino Transf (AST/SGOT) 179 U/L (15-37) H Alanine Aminotransferase (ALT/SGPT) 25 U/L (12-78) Alkaline Phosphatase 260 U/L (46-116) H Troponin I 0.023 ng/mL (0.000-0.056) C-Reactive Protein, Quantitative 5.8 mg/dL (0.00-0.90) H Pro-B-Type Natriuretic Peptide 786 pg/mL (0-125) H Total Protein 7.9 G/DL (6.4-8.2) Albumin 3.1 G/DL (3.4-5.0) L Globulin 4.8 g/dL Albumin/Globulin Ratio 0.6 (1.0-2.7) L CA 19-9 Antigen Pending Thyroid Stimulating Hormone (TSH) 2.015 uiU/mL (0.358-3.740) Free Thyroxine 1.05 NG/DL (0.76-1.46) Microbiology Date/Time Source Procedure Growth Status 06/18/18 18:00 Blood Blood Culture - Preliminary NO GROWTH AFTER 48 HOURS Resulted 06/18/18 17:45 Blood Blood Culture - Preliminary NO GROWTH AFTER 48 HOURS Resulted 06/18/18 18:05 Indwelling Cath Urine Culture - Final NO GROWTH AFTER 48 HOURS Complete Objective HEAD AND NECK: No JVD. LUNGS: Clear. CARDIOVASCULAR: Bradycardic S1-S2 with no gallop or murmur. ABDOMEN: Soft. EXTREMITIES: 1+ pitting edema. Miko Reed MD Jun 21, 2018 14:31
--- NOTE | 2018-06-21 15:08 | General Progress Note ---
Assessment/Plan Status: stable, progressing Assessment/Plan Dementia with behavioral dist psychotic d/o -ativan 1mg iv q4hr prn agitation -the pt lacks capacity to make decisions. soft restraints the pt son gave consent to pace maker the pt may not refuse any tests or meds as he lacks capacity to make decisions Subjective Neurologic/Psychiatric: Reports: anxiety, depressed, emotional problems Allergies: Coded Allergies: No Known Allergies (Unverified , 08/27/17) Subjective the pt is confused Objective Last 24 Hour Vital Signs Date Time Temp Pulse Resp B/P (MAP) Pulse Ox O2 Delivery O2 Flow Rate FiO2 06/21/18 12:00 98.2 60 20 139/57 (84) 100 98.2 06/21/18 09:00 Room Air 06/21/18 08:00 37 06/21/18 08:00 97.9 40 20 132/58 (82) 98 97.9 06/21/18 04:00 32 06/21/18 04:00 98.4 38 18 134/54 (80) 96 98.4 06/21/18 00:00 37 06/21/18 00:00 98.4 35 20 128/55 (79) 95 98.4 06/20/18 21:00 Room Air 06/20/18 20:00 98.2 61 22 109/65 (80) 94 98.2 06/20/18 20:00 40 06/20/18 17:15 98.6 06/20/18 16:45 98.6 06/20/18 16:00 69 06/20/18 16:00 98.6 58 18 132/61 (84) 97 98.6 Intake and Output 06/20/18 06/21/18 19:00 07:00 Intake Total 240 ml Output Total 600 ml 1000 ml Balance -360 ml -1000 ml Intake Oral 240 ml Output Urine Total 600 ml 1000 ml Laboratory Tests 06/21/18 05:35: White Blood Count 7.1, Red Blood Count 3.82L, Hemoglobin 11.5L, Hematocrit 34.7L , Mean Corpuscular Volume 91, Mean Corpuscular Hemoglobin 30.1, Mean Corpuscular Hemoglobin Concent 33.2, Red Cell Distribution Width 12.5, Platelet Count 232, Mean Platelet Volume 8.1, Neutrophils (%) (Auto) 71.6, Lymphocytes (% ) (Auto) 14.1L, Monocytes (%) (Auto) 10.7H, Eosinophils (%) (Auto) 2.4, Basophils (%) (Auto) 1.2, Sodium Level 139, Potassium Level 3.9, Chloride Level 103, Carbon Dioxide Level 25, Anion Gap 11, Blood Urea Nitrogen 17, Creatinine 1.0, Estimat Glomerular Filtration Rate , Glucose Level 109H, Uric Acid 5.1, Calcium Level 9.3, Phosphorus Level 3.3, Magnesium Level 1.8, Total Bilirubin 0.6, Gamma Glutamyl Transpeptidase 45, Aspartate Amino Transf (AST/SGOT) 179H, Alanine Aminotransferase (ALT/SGPT) 25, Alkaline Phosphatase 260H, Troponin I 0.023, C-Reactive Protein, Quantitative 5.8H, Pro-B-Type Natriuretic Peptide 786H, Total Protein 7.9, Albumin 3.1L, Globulin 4.8, Albumin/Globulin Ratio 0.6L , CA 19-9 Antigen [Pending], Thyroid Stimulating Hormone (TSH) 2.015, Free Thyroxine 1.05 Height (Feet): 6 Height (Inches): 5.00 Weight (Pounds): 180 General Appearance: no apparent distress, alert, confused Vilma Medina MD Jun 21, 2018 15:07
--- NOTE | 2018-06-21 15:47 | Nephrology Progress Note ---
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 refusing pacer 2D echo noted- Midodrine as needed Per orders Subjective ROS Limited/Unobtainable: No Constitutional: Reports: malaise Objective Objective Last 24 Hour Vital Signs Date Time Temp Pulse Resp B/P (MAP) Pulse Ox O2 Delivery O2 Flow Rate FiO2 06/21/18 12:00 98.2 60 20 139/57 (84) 100 98.2 06/21/18 12:00 43 06/21/18 09:00 Room Air 06/21/18 08:00 37 06/21/18 08:00 97.9 40 20 132/58 (82) 98 97.9 06/21/18 04:00 32 06/21/18 04:00 98.4 38 18 134/54 (80) 96 98.4 06/21/18 00:00 37 06/21/18 00:00 98.4 35 20 128/55 (79) 95 98.4 06/20/18 21:00 Room Air 06/20/18 20:00 98.2 61 22 109/65 (80) 94 98.2 06/20/18 20:00 40 06/20/18 17:15 98.6 06/20/18 16:45 98.6 06/20/18 16:00 69 06/20/18 16:00 98.6 58 18 132/61 (84) 97 98.6 Intake and Output 06/20/18 06/21/18 19:00 07:00 Intake Total 240 ml Output Total 600 ml 1000 ml Balance -360 ml -1000 ml Intake Oral 240 ml Output Urine Total 600 ml 1000 ml Laboratory Tests 06/21/18 05:35: White Blood Count 7.1, Red Blood Count 3.82L, Hemoglobin 11.5L, Hematocrit 34.7L , Mean Corpuscular Volume 91, Mean Corpuscular Hemoglobin 30.1, Mean Corpuscular Hemoglobin Concent 33.2, Red Cell Distribution Width 12.5, Platelet Count 232, Mean Platelet Volume 8.1, Neutrophils (%) (Auto) 71.6, Lymphocytes (% ) (Auto) 14.1L, Monocytes (%) (Auto) 10.7H, Eosinophils (%) (Auto) 2.4, Basophils (%) (Auto) 1.2, Sodium Level 139, Potassium Level 3.9, Chloride Level 103, Carbon Dioxide Level 25, Anion Gap 11, Blood Urea Nitrogen 17, Creatinine 1.0, Estimat Glomerular Filtration Rate , Glucose Level 109H, Uric Acid 5.1, Calcium Level 9.3, Phosphorus Level 3.3, Magnesium Level 1.8, Total Bilirubin 0.6, Gamma Glutamyl Transpeptidase 45, Aspartate Amino Transf (AST/SGOT) 179H, Alanine Aminotransferase (ALT/SGPT) 25, Alkaline Phosphatase 260H, Troponin I 0.023, C-Reactive Protein, Quantitative 5.8H, Pro-B-Type Natriuretic Peptide 786H, Total Protein 7.9, Albumin 3.1L, Globulin 4.8, Albumin/Globulin Ratio 0.6L , CA 19-9 Antigen [Pending], Thyroid Stimulating Hormone (TSH) 2.015, Free Thyroxine 1.05 Height (Feet): 6 Height (Inches): 5.00 Weight (Pounds): 180 General Appearance: no apparent distress Cardiovascular: bradycardia Respiratory/Chest: lungs clear Objective no change Christopher Coronado MD Jun 21, 2018 15:47
[2018-06-21 16:00] VITALS: BP 140/66
[2018-06-21] MEDS: HydrALAZINE 10mg Tab ORAL SCH (17:29)
[2018-06-21 20:00] VITALS: BP 140/58
--- NOTE | 2018-06-21 20:26 | General Progress Note ---
Assessment/Plan Problem List: (1) Anemia ICD Codes: D64.9 - Anemia, unspecified SNOMED: 431644700 (2) Abdominal pain ICD Codes: R10.9 - Unspecified abdominal pain SNOMED: 99432992 (3) Hematuria ICD Codes: R31.9 - Hematuria, unspecified SNOMED: 06960421 (4) Bradycardia ICD Codes: R00.1 - Bradycardia, unspecified SNOMED: 96009760 (5) Renal insufficiency ICD Codes: N28.9 - Disorder of kidney and ureter, unspecified SNOMED: 754804806, 889060290 (6) UTI (urinary tract infection) ICD Codes: N39.0 - Urinary tract infection, site not specified SNOMED: 57041601 (7) Abnormal urogenital findings ICD Codes: R89.9 - Unspecified abnormal finding in specimens from other organs , systems and tissues SNOMED: 092397950, 167370244 Status: progressing Assessment/Plan hematurea improving abx per id reviewed chart and labs bradycardia azotemia obs s/p prostate cancer Subjective ROS Limited/Unobtainable: Yes Allergies: Coded Allergies: No Known Allergies (Unverified , 08/27/17) Objective Last 24 Hour Vital Signs Date Time Temp Pulse Resp B/P (MAP) Pulse Ox O2 Delivery O2 Flow Rate FiO2 06/21/18 17:29 140/66 06/21/18 16:00 59 06/21/18 16:00 98.6 61 20 140/66 (90) 94 98.6 06/21/18 12:00 98.2 60 20 139/57 (84) 100 98.2 06/21/18 12:00 43 06/21/18 09:00 Room Air 06/21/18 08:00 37 06/21/18 08:00 97.9 40 20 132/58 (82) 98 97.9 06/21/18 04:00 32 06/21/18 04:00 98.4 38 18 134/54 (80) 96 98.4 06/21/18 00:00 37 06/21/18 00:00 98.4 35 20 128/55 (79) 95 98.4 06/20/18 21:00 Room Air Intake and Output 06/20/18 06/21/18 19:00 07:00 Intake Total 240 ml Output Total 600 ml 1000 ml Balance -360 ml -1000 ml Intake Oral 240 ml Output Urine Total 600 ml 1000 ml Laboratory Tests 06/21/18 05:35: White Blood Count 7.1, Red Blood Count 3.82L, Hemoglobin 11.5L, Hematocrit 34.7L , Mean Corpuscular Volume 91, Mean Corpuscular Hemoglobin 30.1, Mean Corpuscular Hemoglobin Concent 33.2, Red Cell Distribution Width 12.5, Platelet Count 232, Mean Platelet Volume 8.1, Neutrophils (%) (Auto) 71.6, Lymphocytes (% ) (Auto) 14.1L, Monocytes (%) (Auto) 10.7H, Eosinophils (%) (Auto) 2.4, Basophils (%) (Auto) 1.2, Sodium Level 139, Potassium Level 3.9, Chloride Level 103, Carbon Dioxide Level 25, Anion Gap 11, Blood Urea Nitrogen 17, Creatinine 1.0, Estimat Glomerular Filtration Rate , Glucose Level 109H, Uric Acid 5.1, Calcium Level 9.3, Phosphorus Level 3.3, Magnesium Level 1.8, Total Bilirubin 0.6, Gamma Glutamyl Transpeptidase 45, Aspartate Amino Transf (AST/SGOT) 179H, Alanine Aminotransferase (ALT/SGPT) 25, Alkaline Phosphatase 260H, Troponin I 0.023, C-Reactive Protein, Quantitative 5.8H, Pro-B-Type Natriuretic Peptide 786H, Total Protein 7.9, Albumin 3.1L, Globulin 4.8, Albumin/Globulin Ratio 0.6L , CA 19-9 Antigen [Pending], Thyroid Stimulating Hormone (TSH) 2.015, Free Thyroxine 1.05 Height (Feet): 6 Height (Inches): 5.00 Weight (Pounds): 180 General Appearance: confused Yury Murray MD Jun 21, 2018 20:26
[2018-06-21] MEDS: Acetaminophen 500mg (ES) tab ORAL PRN (20:48)
--- NOTE | 2018-06-21 21:45 | Progress Note ---
DATE: 06/21/2018 SUBJECTIVE: The patient continues to be confused, disoriented, has disorganized speech and behavior. At times uncooperative with the staff. Poor insight and judgment. The patient is delusional, unable to understand process, communicate, or appreciate information is given to him in regards to his medical condition. Decision maker is the son. The patient is confused, disoriented. The patient at times refuses medication and care. MENTAL STATUS EXAMINATION: The patient is alert and oriented times self, confused, and disoriented. Mood is irritable. Affect is constricted. Congruent mood. Thought process is concrete. Thought content, no suicidal or homicidal ideation. The patient is delusional. Cognition is impaired. Insight and judgment non-existent. ASSESSMENT: 1. Dementia. 2. 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 PLAN: 1. The patient lacks capacity to make decisions. The son will be the decision maker. 2. The patient refuse care, may not leave AMA. 3. We will continue p.r.n. antipsychotics. 4. We will continue follow and readjust the medications Vilma Medina M.D. DR: Carlos JOB#: [id number] CC:
[2018-06-22] VITALS: BP 131/64
[2018-06-22] MEDS: HydrALAZINE 10mg Tab ORAL SCH ×5 (01:06→23:39)
[2018-06-22] MEDS: Milk of Magnesia 30ml Ud ORAL PRN (01:06)
[2018-06-22] MEDS: Morphine Sulfate 2mg/ml Inj IVP PRN ×2 (03:11→23:55)
[2018-06-22 04:00] VITALS: BP 120/54
[2018-06-22 08:00] VITALS: BP 138/70
--- NOTE | 2018-06-22 08:27 | General Progress Note ---
Assessment/Plan Problem List: (1) Anemia ICD Codes: D64.9 - Anemia, unspecified SNOMED: 623850044 (2) Constipation ICD Codes: K59.00 - Constipation, unspecified SNOMED: 59811730 (3) Abdominal pain ICD Codes: R10.9 - Unspecified abdominal pain SNOMED: 32505046 (4) Bradycardia ICD Codes: R00.1 - Bradycardia, unspecified SNOMED: 23474220 Assessment/Plan Assessment/Plan Prostate CA s/p prostatectomy with osseous metastases fu oncology recs supportive care / symptomatic treatment pain mgmt zofran prn monitor H&H, prn transfusions bowel regime ppi fu labs Subjective ROS Limited/Unobtainable: Yes Allergies: Coded Allergies: No Known Allergies (Unverified , 08/27/17) Objective Last 24 Hour Vital Signs Date Time Temp Pulse Resp B/P (MAP) Pulse Ox O2 Delivery O2 Flow Rate FiO2 06/22/18 06:13 120/54 06/22/18 04:00 97.5 35 20 120/54 (76) 97 97.5 06/22/18 04:00 35 06/22/18 01:06 140/58 06/22/18 00:00 98.5 57 16 131/64 (86) 96 98.5 06/22/18 00:00 41 06/21/18 21:18 98.8 06/21/18 21:00 Room Air 06/21/18 20:48 99.9 06/21/18 20:00 99.9 63 20 140/58 (85) 94 99.9 06/21/18 20:00 59 06/21/18 17:29 140/66 06/21/18 16:00 59 06/21/18 16:00 98.6 61 20 140/66 (90) 94 98.6 06/21/18 12:00 98.2 60 20 139/57 (84) 100 98.2 06/21/18 12:00 43 06/21/18 09:00 Room Air Intake and Output 06/21/18 06/22/18 19:00 07:00 Intake Total 870 ml 50 ml Output Total 700 ml 600 ml Balance 170 ml -550 ml Intake Oral 270 ml 50 ml IV Total 600 ml Output Urine Total 700 ml 600 ml Height (Feet): 6 Height (Inches): 5.00 Weight (Pounds): 180 General Appearance: alert EENT: normal ENT inspection Neck: supple Cardiovascular: normal rate Respiratory/Chest: decreased breath sounds Abdomen: normal bowel sounds, non tender, soft Extremities: non-tender Rush Joel MD Jun 22, 2018 08:26
[2018-06-22] MEDS: Docusate 100mg cap ORAL SCH ×3 (09:35→17:36)
[2018-06-22] MEDS: Miralax 17gm pkt ORAL SCH (09:35)
[2018-06-22] MEDS: Bisacodyl EC 5mg tab ORAL SCH (09:35)
[2018-06-22] MEDS: Levofloxacin 500mg tab ORAL SCH (09:35)
--- NOTE | 2018-06-22 09:47 | Nephrology Progress Note ---
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 hydralazine as refusing pacer 2D echo noted- Midodrine as needed Per orders Subjective ROS Limited/Unobtainable: No Objective Objective Last 24 Hour Vital Signs Date Time Temp Pulse Resp B/P (MAP) Pulse Ox O2 Delivery O2 Flow Rate FiO2 06/22/18 06:13 120/54 06/22/18 04:00 97.5 35 20 120/54 (76) 97 97.5 06/22/18 04:00 35 06/22/18 01:06 140/58 06/22/18 00:00 98.5 57 16 131/64 (86) 96 98.5 06/22/18 00:00 41 06/21/18 21:18 98.8 06/21/18 21:00 Room Air 06/21/18 20:48 99.9 06/21/18 20:00 99.9 63 20 140/58 (85) 94 99.9 06/21/18 20:00 59 06/21/18 17:29 140/66 06/21/18 16:00 59 06/21/18 16:00 98.6 61 20 140/66 (90) 94 98.6 06/21/18 12:00 98.2 60 20 139/57 (84) 100 98.2 06/21/18 12:00 43 Intake and Output 06/21/18 06/22/18 19:00 07:00 Intake Total 870 ml 50 ml Output Total 700 ml 600 ml Balance 170 ml -550 ml Intake Oral 270 ml 50 ml IV Total 600 ml Output Urine Total 700 ml 600 ml Height (Feet): 6 Height (Inches): 5.00 Weight (Pounds): 180 General Appearance: no apparent distress Cardiovascular: bradycardia Objective no change Christopher Coronado MD Jun 22, 2018 09:47
--- NOTE | 2018-06-22 11:39 | General Progress Note ---
Assessment/Plan Problem List: (1) Anemia ICD Codes: D64.9 - Anemia, unspecified SNOMED: 522110799 (2) Abdominal pain ICD Codes: R10.9 - Unspecified abdominal pain SNOMED: 45299742 (3) Hematuria ICD Codes: R31.9 - Hematuria, unspecified SNOMED: 11256742 (4) Bradycardia ICD Codes: R00.1 - Bradycardia, unspecified SNOMED: 09378208 (5) Renal insufficiency ICD Codes: N28.9 - Disorder of kidney and ureter, unspecified SNOMED: 426465705, 173309902 (6) UTI (urinary tract infection) ICD Codes: N39.0 - Urinary tract infection, site not specified SNOMED: 03188307 (7) Abnormal urogenital findings ICD Codes: R89.9 - Unspecified abnormal finding in specimens from other organs , systems and tissues SNOMED: 047563970, 951528984 Status: progressing Assessment/Plan hematurea improving bradycardia azotemia obs s/p prostate cancer weak benefit from pt/ot multiple urological problems dr adams is consulted hr improving Subjective ROS Limited/Unobtainable: Yes Allergies: Coded Allergies: No Known Allergies (Unverified , 08/27/17) Objective Last 24 Hour Vital Signs Date Time Temp Pulse Resp B/P (MAP) Pulse Ox O2 Delivery O2 Flow Rate FiO2 06/22/18 09:00 Room Air 06/22/18 08:00 45 06/22/18 08:00 98.3 59 20 138/70 (92) 95 98.3 06/22/18 06:13 120/54 06/22/18 04:00 97.5 35 20 120/54 (76) 97 97.5 06/22/18 04:00 35 06/22/18 01:06 140/58 06/22/18 00:00 98.5 57 16 131/64 (86) 96 98.5 06/22/18 00:00 41 06/21/18 21:18 98.8 06/21/18 21:00 Room Air 06/21/18 20:48 99.9 06/21/18 20:00 99.9 63 20 140/58 (85) 94 99.9 06/21/18 20:00 59 06/21/18 17:29 140/66 06/21/18 16:00 59 06/21/18 16:00 98.6 61 20 140/66 (90) 94 98.6 06/21/18 12:00 98.2 60 20 139/57 (84) 100 98.2 06/21/18 12:00 43 Intake and Output 06/21/18 06/22/18 19:00 07:00 Intake Total 870 ml 50 ml Output Total 700 ml 600 ml Balance 170 ml -550 ml Intake Oral 270 ml 50 ml IV Total 600 ml Output Urine Total 700 ml 600 ml Height (Feet): 6 Height (Inches): 5.00 Weight (Pounds): 180 General Appearance: confused Cardiovascular: normal rate Abdomen: soft Yury Murray MD Jun 22, 2018 11:39
[2018-06-22 12:00] VITALS: BP 127/73
--- NOTE | 2018-06-22 13:00 | General Progress Note ---
Assessment/Plan Status: stable Assessment/Plan # Prostate cancer with extensive metastases -- extensive sclerotic lesions throughout the pelvic bones, spine, ribs, and visualized sternum, compatible with osseous metastases, significantly worsened compared to prior exam. PSA 531 , likely will be further increased as he has not received any treatment --> received prostatectomy in 08/2017 --> again have recommended simple antiandrogen therapy (lupron SQ injection and casodex a PO medication) that will bring his PSA to <5 for most cases >95% of patients --> talked to son 06/20/18 re prognosis, can be significantly improved if treated prostate cancer, but at this time patient continues to decline --> continue to christian counselor daily as best as possible --> onco and uro outpatient f/u --> Dr. Gonzalez outpatient f/u # Anemia due to malignancy --> likely worse given progression of disease --> Hgb goal above 7 --> Currently stable. # Bradycardic, second-degree AV block, Mobitz type I --> appreciate recs by Dr. Reed # UTI on abx as per pcp --> on abx # KYMBERLY consider fluids as needed Greatly appreciate consultation! Subjective Date patient seen: Jun 22, 2018 ROS Limited/Unobtainable: Yes Hematologic/Lymphatic: Reports: anemia Allergies: Coded Allergies: No Known Allergies (Unverified , 08/27/17) Subjective Pt awake and alert. No acute events. H/H stable. Objective Last 24 Hour Vital Signs Date Time Temp Pulse Resp B/P (MAP) Pulse Ox O2 Delivery O2 Flow Rate FiO2 06/22/18 12:22 127/73 06/22/18 12:00 98.7 69 21 127/73 (91) 95 98.7 06/22/18 09:00 Room Air 06/22/18 08:00 45 06/22/18 08:00 98.3 59 20 138/70 (92) 95 98.3 06/22/18 06:13 120/54 06/22/18 04:00 97.5 35 20 120/54 (76) 97 97.5 06/22/18 04:00 35 06/22/18 01:06 140/58 06/22/18 00:00 98.5 57 16 131/64 (86) 96 98.5 06/22/18 00:00 41 06/21/18 21:18 98.8 06/21/18 21:00 Room Air 06/21/18 20:48 99.9 06/21/18 20:00 99.9 63 20 140/58 (85) 94 99.9 06/21/18 20:00 59 06/21/18 17:29 140/66 06/21/18 16:00 59 06/21/18 16:00 98.6 61 20 140/66 (90) 94 98.6 Intake and Output 06/21/18 06/22/18 19:00 07:00 Intake Total 870 ml 50 ml Output Total 700 ml 600 ml Balance 170 ml -550 ml Intake Oral 270 ml 50 ml IV Total 600 ml Output Urine Total 700 ml 600 ml Height (Feet): 6 Height (Inches): 5.00 Weight (Pounds): 180 General Appearance: no apparent distress EENT: PERRL/EOMI Neck: normal alignment Cardiovascular: normal peripheral pulses Respiratory/Chest: no respiratory distress Abdomen: soft Gerard Hernandez MD Jun 22, 2018 13:00
[2018-06-22] MEDS: Acetaminophen 500mg (ES) tab ORAL PRN (13:51)
[2018-06-22 16:00] VITALS: BP 131/84
--- NOTE | 2018-06-22 17:58 | Cardiac Electrophysiology PN ---
Assessment/Plan Assessment/Plan 1. Bradycardia with high-grade AV block and 2:1 block off any AV feliciano blocking agents. The patient is still Full Code. Family still undecided regarding pacer 2. Hypotension. Off BP meds ok 2. Metastatic prostate cancer, status post prostatectomy in August. 3. Abdominal pain under evaluation by Dr. Joel. 4. Dementia. DW RN and daughter Subjective Subjective In Sinus uriah in 40s . Daughter at bedside Objective Last 24 Hour Vital Signs Date Time Temp Pulse Resp B/P (MAP) Pulse Ox O2 Delivery O2 Flow Rate FiO2 06/22/18 17:36 131/84 06/22/18 16:00 73 06/22/18 16:00 97.3 74 21 131/84 (100) 95 97.3 06/22/18 14:21 98.7 06/22/18 13:51 98.7 06/22/18 12:22 127/73 06/22/18 12:00 98.7 69 21 127/73 (91) 95 98.7 06/22/18 12:00 63 06/22/18 09:00 Room Air 06/22/18 08:00 45 06/22/18 08:00 98.3 59 20 138/70 (92) 95 98.3 06/22/18 06:13 120/54 06/22/18 04:00 97.5 35 20 120/54 (76) 97 97.5 06/22/18 04:00 35 06/22/18 01:06 140/58 06/22/18 00:00 98.5 57 16 131/64 (86) 96 98.5 06/22/18 00:00 41 06/21/18 21:00 Room Air 06/21/18 20:48 99.9 06/21/18 20:00 99.9 63 20 140/58 (85) 94 99.9 06/21/18 20:00 59 Intake and Output 06/21/18 06/22/18 19:00 07:00 Intake Total 870 ml 50 ml Output Total 700 ml 600 ml Balance 170 ml -550 ml Intake Oral 270 ml 50 ml IV Total 600 ml Output Urine Total 700 ml 600 ml Objective HEAD AND NECK: No JVD. LUNGS: Clear. CARDIOVASCULAR: Bradycardic S1-S2 with no gallop or murmur. ABDOMEN: Soft. EXTREMITIES: 1+ pitting edema. Toluie,Miko MD Jun 22, 2018 17:58
[2018-06-22 20:00] VITALS: BP 147/68
--- NOTE | 2018-06-22 23:42 | General Progress Note ---
Assessment/Plan Status: stable Assessment/Plan Dementia with behavioral dist psychotic d/o -ativan 1mg iv q4hr prn agitation -the pt lacks capacity to make decisions. soft restraints the pt son gave consent to pace maker the pt may not refuse any tests or meds as he lacks capacity to make decisions Subjective Neurologic/Psychiatric: Reports: anxiety, depressed Allergies: Coded Allergies: No Known Allergies (Unverified , 08/27/17) Subjective the pt is confused Objective Last 24 Hour Vital Signs Date Time Temp Pulse Resp B/P (MAP) Pulse Ox O2 Delivery O2 Flow Rate FiO2 06/22/18 23:39 147/68 06/22/18 21:00 Room Air 06/22/18 20:00 98.2 48 20 147/68 (94) 94 98.2 06/22/18 20:00 48 06/22/18 17:36 131/84 06/22/18 16:00 73 06/22/18 16:00 97.3 74 21 131/84 (100) 95 97.3 06/22/18 14:21 98.7 06/22/18 13:51 98.7 06/22/18 12:22 127/73 06/22/18 12:00 98.7 69 21 127/73 (91) 95 98.7 06/22/18 12:00 63 06/22/18 09:00 Room Air 06/22/18 08:00 45 06/22/18 08:00 98.3 59 20 138/70 (92) 95 98.3 06/22/18 06:13 120/54 06/22/18 04:00 97.5 35 20 120/54 (76) 97 97.5 06/22/18 04:00 35 06/22/18 01:06 140/58 06/22/18 00:00 98.5 57 16 131/64 (86) 96 98.5 06/22/18 00:00 41 Intake and Output 06/21/18 06/22/18 19:00 07:00 Intake Total 870 ml 50 ml Output Total 700 ml 600 ml Balance 170 ml -550 ml Intake Oral 270 ml 50 ml IV Total 600 ml Output Urine Total 700 ml 600 ml Height (Feet): 6 Height (Inches): 5.00 Weight (Pounds): 180 General Appearance: no apparent distress, alert, confused, agitated Farhadi,Pantea MD Jun 22, 2018 23:41
[2018-06-23] VITALS: BP 144/81
[2018-06-23 04:00] VITALS: BP 125/57
[2018-06-23] MEDS: Morphine Sulfate 2mg/ml Inj IVP PRN ×4 (04:17→23:58)
[2018-06-23] MEDS: HydrALAZINE 10mg Tab ORAL SCH ×4 (06:36→23:49)
[2018-06-23 08:00] VITALS: BP 116/66
[2018-06-23 08:01] LABS: BASOPHILS % (AUTO) 0.8 % (0.0-2.0); HEMOGLOBIN 12.3 G/DL (14.2-18.0); LYMPHOCYTES % (AUTO) 12.4 % (20.0-45.0); MEAN CORPUSCULAR VOLUME 90 FL (80-99); MONOCYTES % (AUTO) 10.2 % (1.0-10.0); NEUTROPHILS % (AUTO) 73.6 % (45.0-75.0); PLATELET COUNT 273 K/UL (150-450); RED CELL DISTRIBUTION WIDTH 12.5 % (11.6-14.8); WHITE BLOOD COUNT 8.3 K/UL (4.8-10.8)
--- NOTE | 2018-06-23 08:10 | General Progress Note ---
Assessment/Plan Problem List: (1) Anemia ICD Codes: D64.9 - Anemia, unspecified SNOMED: 235851766 (2) Constipation ICD Codes: K59.00 - Constipation, unspecified SNOMED: 21701074 (3) Abdominal pain ICD Codes: R10.9 - Unspecified abdominal pain SNOMED: 90263541 (4) Bradycardia ICD Codes: R00.1 - Bradycardia, unspecified SNOMED: 81528578 Assessment/Plan Assessment/Plan Prostate CA s/p prostatectomy with osseous metastases fu oncology recs supportive care / symptomatic treatment pain mgmt zofran prn monitor H&H, prn transfusions bowel regime ppi fu labs swallow eval Subjective ROS Limited/Unobtainable: Yes Allergies: Coded Allergies: No Known Allergies (Unverified , 08/27/17) Objective Last 24 Hour Vital Signs Date Time Temp Pulse Resp B/P (MAP) Pulse Ox O2 Delivery O2 Flow Rate FiO2 06/23/18 06:36 126/66 06/23/18 04:00 98.1 63 19 125/57 (79) 96 98.1 06/23/18 04:00 70 06/23/18 00:30 98.2 06/23/18 00:00 97.2 48 19 144/81 (102) 96 97.2 06/23/18 00:00 48 06/22/18 23:39 147/68 06/22/18 21:00 Room Air 06/22/18 20:00 98.2 48 20 147/68 (94) 94 98.2 06/22/18 20:00 48 06/22/18 17:36 131/84 06/22/18 16:00 73 06/22/18 16:00 97.3 74 21 131/84 (100) 95 97.3 06/22/18 14:21 98.7 06/22/18 13:51 98.7 06/22/18 12:22 127/73 06/22/18 12:00 98.7 69 21 127/73 (91) 95 98.7 06/22/18 12:00 63 06/22/18 09:00 Room Air Intake and Output 06/22/18 06/23/18 19:00 07:00 Intake Total 500 ml Output Total 1000 ml 850 ml Balance -500 ml -850 ml Intake Oral 500 ml Output Urine Total 1000 ml 850 ml # Bowel Movements 1 Laboratory Tests 06/23/18 07:40: White Blood Count [Pending], Red Blood Count [Pending], Hemoglobin [Pending], Hematocrit [Pending], Mean Corpuscular Volume [Pending], Mean Corpuscular Hemoglobin [Pending], Mean Corpuscular Hemoglobin Concent [Pending], Red Cell Distribution Width [Pending], Platelet Count [Pending], Mean Platelet Volume [ Pending], Neutrophils (%) (Auto) [Pending], Lymphocytes (%) (Auto) [Pending], Monocytes (%) (Auto) [Pending], Eosinophils (%) (Auto) [Pending], Basophils (%) (Auto) [Pending], Sodium Level [Pending], Potassium Level [Pending], Chloride Level [Pending], Carbon Dioxide Level [Pending], Blood Urea Nitrogen [Pending], Creatinine [Pending], Estimat Glomerular Filtration Rate [Pending], Glucose Level [Pending], Calcium Level [Pending], Total Bilirubin [Pending], Aspartate Amino Transf (AST/SGOT) [Pending], Alanine Aminotransferase (ALT/SGPT) [Pending] , Alkaline Phosphatase [Pending], Total Protein [Pending], Albumin [Pending], Globulin [Pending] Height (Feet): 6 Height (Inches): 5.00 Weight (Pounds): 180 General Appearance: confused EENT: normal ENT inspection Neck: supple Cardiovascular: normal rate Respiratory/Chest: decreased breath sounds Abdomen: normal bowel sounds, non tender, soft Extremities: non-tender Rush Joel MD Jun 23, 2018 08:10
[2018-06-23] MEDS: Levofloxacin 500mg tab ORAL SCH (08:28)
[2018-06-23] MEDS: Docusate 100mg cap ORAL SCH ×3 (08:28→17:46)
[2018-06-23 08:34] LABS: ALANINE AMINOTRANSFERASE 25 U/L (12-78); ALBUMIN 2.7 G/DL (3.4-5.0); ALBUMIN/GLOBULIN RATIO 0.6 (1.0-2.7); ALKALINE PHOSPHATASE 239 U/L (46-116); ANION GAP 10 mmol/L (5-15); ASPARTATE AMINO TRANSFERASE 143 U/L (15-37); BILIRUBIN,TOTAL 0.7 MG/DL (0.2-1.0); BLOOD UREA NITROGEN 19 mg/dL (7-18); CALCIUM 9.2 MG/DL (8.5-10.1); CARBON DIOXIDE 24 MMOL/L (21-32); CHLORIDE 102 MMOL/L (98-107); CREATININE 0.8 MG/DL (0.55-1.30); SODIUM 136 MMOL/L (136-145)
[2018-06-23] MEDS: Miralax 17gm pkt ORAL SCH (09:00)
[2018-06-23] MEDS: Bisacodyl EC 5mg tab ORAL SCH (09:00)
--- NOTE | 2018-06-23 10:52 | Infectious Diseases Prog Note ---
Assessment/Plan Assessment/Plan A; Cystitis Metastatic prostatic cancer Bradycardia AV block Dementia P; Discontinue Levaquin Subjective ROS Limited/Unobtainable: Yes Musculoskeletal: Reports: pain Allergies: Coded Allergies: No Known Allergies (Unverified , 08/27/17) Objective Vital Signs Last 24 Hour Vital Signs Date Time Temp Pulse Resp B/P (MAP) Pulse Ox O2 Delivery O2 Flow Rate FiO2 06/23/18 10:14 98.1 06/23/18 09:00 Room Air 06/23/18 06:36 126/66 06/23/18 04:00 98.1 63 19 125/57 (79) 96 98.1 06/23/18 04:00 70 06/23/18 00:30 98.2 06/23/18 00:00 97.2 48 19 144/81 (102) 96 97.2 06/23/18 00:00 48 06/22/18 23:39 147/68 06/22/18 21:00 Room Air 06/22/18 20:00 98.2 48 20 147/68 (94) 94 98.2 06/22/18 20:00 48 06/22/18 17:36 131/84 06/22/18 16:00 73 06/22/18 16:00 97.3 74 21 131/84 (100) 95 97.3 06/22/18 14:21 98.7 06/22/18 13:51 98.7 06/22/18 12:22 127/73 06/22/18 12:00 98.7 69 21 127/73 (91) 95 98.7 06/22/18 12:00 63 Height (Feet): 6 Height (Inches): 5.00 Weight (Pounds): 180 General Appearance: no acute distress HEENT: mucous membranes moist Respiratory/Chest: lungs clear Cardiovascular: normal rate Abdomen: soft, non tender Genitourinary: other - Orta catheter Extremities: no edema Neurologic/Psychiatric: other - drowsy because of pain medication Laboratory Tests Test 06/23/18 07:40 White Blood Count 8.3 K/UL (4.8-10.8) Red Blood Count 4.10 M/UL (4.70-6.10) L Hemoglobin 12.3 G/DL (14.2-18.0) L Hematocrit 37.0 % (42.0-52.0) L Mean Corpuscular Volume 90 FL (80-99) Mean Corpuscular Hemoglobin 30.1 PG (27.0-31.0) Mean Corpuscular Hemoglobin Concent 33.3 G/DL (32.0-36.0) Red Cell Distribution Width 12.5 % (11.6-14.8) Platelet Count 273 K/UL (150-450) Mean Platelet Volume 7.7 FL (6.5-10.1) Neutrophils (%) (Auto) 73.6 % (45.0-75.0) Lymphocytes (%) (Auto) 12.4 % (20.0-45.0) L Monocytes (%) (Auto) 10.2 % (1.0-10.0) H Eosinophils (%) (Auto) 3.0 % (0.0-3.0) Basophils (%) (Auto) 0.8 % (0.0-2.0) Sodium Level 136 MMOL/L (136-145) Potassium Level 4.0 MMOL/L (3.5-5.1) Chloride Level 102 MMOL/L (98-107) Carbon Dioxide Level 24 MMOL/L (21-32) Anion Gap 10 mmol/L (5-15) Blood Urea Nitrogen 19 mg/dL (7-18) H Creatinine 0.8 MG/DL (0.55-1.30) Estimat Glomerular Filtration Rate mL/min (>60) Glucose Level 96 MG/DL (74-106) Calcium Level 9.2 MG/DL (8.5-10.1) Total Bilirubin 0.7 MG/DL (0.2-1.0) Aspartate Amino Transf (AST/SGOT) 143 U/L (15-37) H Alanine Aminotransferase (ALT/SGPT) 25 U/L (12-78) Alkaline Phosphatase 239 U/L (46-116) H Total Protein 7.4 G/DL (6.4-8.2) Albumin 2.7 G/DL (3.4-5.0) L Globulin 4.7 g/dL Albumin/Globulin Ratio 0.6 (1.0-2.7) L Current Medications Medications (Trade) Dose Ordered Sig/Pancho Route PRN Reason Start Time Stop Time Status Last Admin Dose Admin Acetaminophen (Tylenol) 500 mg Q4H PRN ORAL Mild Pain/Temp > 100.5 06/18/18 23:30 07/18/18 23:29 06/22/18 13:51 Bisacodyl (Dulcolax) 10 mg DAILY ORAL 06/22/18 09:00 07/22/18 08:59 06/22/18 09:35 Docusate Sodium (Colace) 100 mg THREE TIMES A DAY ORAL 06/19/18 13:00 07/19/18 12:59 06/23/18 08:28 Hydralazine HCl (Apresoline) 10 mg Q6HR ORAL 06/21/18 18:00 07/21/18 17:59 06/23/18 06:36 Iopamidol (Isovue-300 100ml) 100 ml NOW PRN INJ Radiology Procedure 06/18/18 17:30 Levofloxacin (Levaquin) 500 mg DAILY ORAL 06/20/18 14:00 06/27/18 13:59 06/23/18 08:28 Lorazepam (Ativan 2mg/ml 1ml) 1 mg Q6H PRN IV For Anxiety 06/19/18 12:15 06/26/18 12:14 Magnesium Hydroxide (Mom) 30 ml Q4H PRN ORAL Constipation 06/21/18 11:00 07/21/18 10:59 06/22/18 01:06 Morphine Sulfate (Morphine Sulfate) 2 mg Q4H PRN IVP Severe Breakthru Pain (>7) 06/19/18 15:42 06/26/18 15:41 06/23/18 10:14 Pantoprazole (Protonix) 40 mg DAILY ORAL 06/19/18 10:15 07/19/18 10:14 06/23/18 08:28 Polyethylene Glycol (Miralax) 17 gm DAILY ORAL 06/22/18 09:00 07/22/18 08:59 06/22/18 09:35 Sennosides (Senokot) 1 tab DAILY PRN ORAL Constipation 06/21/18 11:00 07/21/18 10:59 Mario Daigle MD Jun 23, 2018 10:52
[2018-06-23 12:00] VITALS: BP 126/67
--- NOTE | 2018-06-23 12:23 | Cardiology Report ---
APPROVED REPORT EKG Measurement Heart [id number] P70 [id number] Sinus rhythm with 2nd degree AV block (Mobitz I) Abnormal ECG
--- NOTE | 2018-06-23 13:37 | Nephrology Progress Note ---
Assessment/Plan Problem List: (1) Bradycardia (2) Renal insufficiency (3) UTI (urinary tract infection) Assessment Renal failure- Acute on Chronic resolved UTI Bradyarrythmia improved somewhat anemia Prostate Ca with Mets Plan per cardio Minitor renal parameter secured entrance monitor trial hydralazine as refusing pacer 2D echo noted- Midodrine as needed Per orders Subjective ROS Limited/Unobtainable: No Constitutional: Reports: malaise, weakness Objective Objective Last 24 Hour Vital Signs Date Time Temp Pulse Resp B/P (MAP) Pulse Ox O2 Delivery O2 Flow Rate FiO2 06/23/18 12:05 116/66 06/23/18 10:45 98.1 06/23/18 10:14 98.1 06/23/18 09:00 Room Air 06/23/18 08:00 70 06/23/18 08:00 97.3 71 19 116/66 (83) 97 97.3 06/23/18 06:36 126/66 06/23/18 04:00 98.1 63 19 125/57 (79) 96 98.1 06/23/18 04:00 70 06/23/18 00:00 97.2 48 19 144/81 (102) 96 97.2 06/23/18 00:00 48 06/22/18 23:39 147/68 06/22/18 21:00 Room Air 06/22/18 20:00 98.2 48 20 147/68 (94) 94 98.2 06/22/18 20:00 48 06/22/18 17:36 131/84 06/22/18 16:00 73 06/22/18 16:00 97.3 74 21 131/84 (100) 95 97.3 06/22/18 14:21 98.7 06/22/18 13:51 98.7 Intake and Output 06/22/18 06/23/18 19:00 07:00 Intake Total 500 ml Output Total 1000 ml 850 ml Balance -500 ml -850 ml Intake Oral 500 ml Output Urine Total 1000 ml 850 ml # Bowel Movements 1 Laboratory Tests 06/23/18 07:40: White Blood Count 8.3, Red Blood Count 4.10L, Hemoglobin 12.3L, Hematocrit 37.0L , Mean Corpuscular Volume 90, Mean Corpuscular Hemoglobin 30.1, Mean Corpuscular Hemoglobin Concent 33.3, Red Cell Distribution Width 12.5, Platelet Count 273, Mean Platelet Volume 7.7, Neutrophils (%) (Auto) 73.6, Lymphocytes (% ) (Auto) 12.4L, Monocytes (%) (Auto) 10.2H, Eosinophils (%) (Auto) 3.0, Basophils (%) (Auto) 0.8, Sodium Level 136, Potassium Level 4.0, Chloride Level 102, Carbon Dioxide Level 24, Anion Gap 10, Blood Urea Nitrogen 19H, Creatinine 0.8, Estimat Glomerular Filtration Rate , Glucose Level 96, Calcium Level 9.2, Total Bilirubin 0.7, Aspartate Amino Transf (AST/SGOT) 143H, Alanine Aminotransferase (ALT/SGPT) 25, Alkaline Phosphatase 239H, Total Protein 7.4, Albumin 2.7L, Globulin 4.7, Albumin/Globulin Ratio 0.6L Height (Feet): 6 Height (Inches): 5.00 Weight (Pounds): 180 General Appearance: no apparent distress Cardiovascular: other - variable rates Objective no change Christopher Coronado MD Jun 23, 2018 13:37
[2018-06-23 16:00] VITALS: BP 121/53
--- NOTE | 2018-06-23 16:36 | General Progress Note ---
Assessment/Plan Status: stable Assessment/Plan # Prostate cancer with extensive metastases -- extensive sclerotic lesions throughout the pelvic bones, spine, ribs, and visualized sternum, compatible with osseous metastases, significantly worsened compared to prior exam. PSA 531 , likely will be further increased as he has not received any treatment --> received prostatectomy in 08/2017 --> again have recommended simple antiandrogen therapy (lupron SQ injection and casodex a PO medication) that will bring his PSA to <5 for most cases >95% of patients --> talked to son 06/20/18 re prognosis, can be significantly improved if treated prostate cancer, but at this time patient continues to decline --> continue to curriculum counselor daily as best as possible --> onco and uro outpatient f/u --> Dr. Gonzalez outpatient f/u # Anemia due to malignancy --> likely worse given progression of disease --> Hgb goal above 7 --> Currently stable. # Bradycardic, second-degree AV block, Mobitz type I --> appreciate recs by Dr. Reed # UTI on abx as per pcp --> on abx # KYMBERLY consider fluids as needed Greatly appreciate consultation! Subjective Date patient seen: Jun 23, 2018 Hematologic/Lymphatic: Reports: anemia Allergies: Coded Allergies: No Known Allergies (Unverified , 08/27/17) All Systems: reviewed and negative except above Subjective Pt awake and alert. No acute events. H/H stable. VS stable. Objective Last 24 Hour Vital Signs Date Time Temp Pulse Resp B/P (MAP) Pulse Ox O2 Delivery O2 Flow Rate FiO2 06/23/18 12:05 116/66 06/23/18 10:45 98.1 06/23/18 10:14 98.1 06/23/18 09:00 Room Air 06/23/18 08:00 70 06/23/18 08:00 97.3 71 19 116/66 (83) 97 97.3 06/23/18 06:36 126/66 06/23/18 04:00 98.1 63 19 125/57 (79) 96 98.1 06/23/18 04:00 70 06/23/18 00:00 97.2 48 19 144/81 (102) 96 97.2 06/23/18 00:00 48 06/22/18 23:39 147/68 06/22/18 21:00 Room Air 06/22/18 20:00 98.2 48 20 147/68 (94) 94 98.2 06/22/18 20:00 48 06/22/18 17:36 131/84 Intake and Output 06/22/18 06/23/18 19:00 07:00 Intake Total 500 ml Output Total 1000 ml 850 ml Balance -500 ml -850 ml Intake Oral 500 ml Output Urine Total 1000 ml 850 ml # Bowel Movements 1 Laboratory Tests 06/23/18 07:40: White Blood Count 8.3, Red Blood Count 4.10L, Hemoglobin 12.3L, Hematocrit 37.0L , Mean Corpuscular Volume 90, Mean Corpuscular Hemoglobin 30.1, Mean Corpuscular Hemoglobin Concent 33.3, Red Cell Distribution Width 12.5, Platelet Count 273, Mean Platelet Volume 7.7, Neutrophils (%) (Auto) 73.6, Lymphocytes (% ) (Auto) 12.4L, Monocytes (%) (Auto) 10.2H, Eosinophils (%) (Auto) 3.0, Basophils (%) (Auto) 0.8, Sodium Level 136, Potassium Level 4.0, Chloride Level 102, Carbon Dioxide Level 24, Anion Gap 10, Blood Urea Nitrogen 19H, Creatinine 0.8, Estimat Glomerular Filtration Rate , Glucose Level 96, Calcium Level 9.2, Total Bilirubin 0.7, Aspartate Amino Transf (AST/SGOT) 143H, Alanine Aminotransferase (ALT/SGPT) 25, Alkaline Phosphatase 239H, Total Protein 7.4, Albumin 2.7L, Globulin 4.7, Albumin/Globulin Ratio 0.6L Height (Feet): 6 Height (Inches): 5.00 Weight (Pounds): 180 General Appearance: no apparent distress, alert EENT: PERRL/EOMI Neck: normal alignment Cardiovascular: normal peripheral pulses Respiratory/Chest: no respiratory distress Abdomen: soft Gerard Hernandez MD Jun 23, 2018 16:36
[2018-06-23 20:00] VITALS: BP 119/67
--- NOTE | 2018-06-23 21:05 | General Progress Note ---
Assessment/Plan Problem List: (1) Anemia ICD Codes: D64.9 - Anemia, unspecified SNOMED: 282389253 (2) Abdominal pain ICD Codes: R10.9 - Unspecified abdominal pain SNOMED: 90848122 (3) Hematuria ICD Codes: R31.9 - Hematuria, unspecified SNOMED: 83930763 (4) Bradycardia ICD Codes: R00.1 - Bradycardia, unspecified SNOMED: 62595232 (5) Renal insufficiency ICD Codes: N28.9 - Disorder of kidney and ureter, unspecified SNOMED: 272053252, 289438632 (6) UTI (urinary tract infection) ICD Codes: N39.0 - Urinary tract infection, site not specified SNOMED: 53924117 (7) Abnormal urogenital findings ICD Codes: R89.9 - Unspecified abnormal finding in specimens from other organs , systems and tissues SNOMED: 200416154, 131648545 Status: progressing Assessment/Plan hematurea improving family wants comfort care obs s/p prostate cancer Subjective ROS Limited/Unobtainable: Yes Allergies: Coded Allergies: No Known Allergies (Unverified , 08/27/17) Objective Last 24 Hour Vital Signs Date Time Temp Pulse Resp B/P (MAP) Pulse Ox O2 Delivery O2 Flow Rate FiO2 06/23/18 17:47 98.1 06/23/18 17:46 116/66 06/23/18 16:00 97.9 79 22 121/53 (75) 97 97.9 06/23/18 16:00 67 06/23/18 12:05 116/66 06/23/18 12:00 97.8 75 19 126/67 (86) 97 97.8 06/23/18 12:00 77 06/23/18 10:45 98.1 06/23/18 10:14 98.1 06/23/18 09:00 Room Air 06/23/18 08:00 70 06/23/18 08:00 97.3 71 19 116/66 (83) 97 97.3 06/23/18 06:36 126/66 06/23/18 04:00 98.1 63 19 125/57 (79) 96 98.1 06/23/18 04:00 70 06/23/18 00:00 97.2 48 19 144/81 (102) 96 97.2 06/23/18 00:00 48 06/22/18 23:39 147/68 Intake and Output 06/22/18 06/23/18 19:00 07:00 Intake Total 500 ml Output Total 1000 ml 850 ml Balance -500 ml -850 ml Intake Oral 500 ml Output Urine Total 1000 ml 850 ml # Bowel Movements 1 Laboratory Tests 06/23/18 07:40: White Blood Count 8.3, Red Blood Count 4.10L, Hemoglobin 12.3L, Hematocrit 37.0L , Mean Corpuscular Volume 90, Mean Corpuscular Hemoglobin 30.1, Mean Corpuscular Hemoglobin Concent 33.3, Red Cell Distribution Width 12.5, Platelet Count 273, Mean Platelet Volume 7.7, Neutrophils (%) (Auto) 73.6, Lymphocytes (% ) (Auto) 12.4L, Monocytes (%) (Auto) 10.2H, Eosinophils (%) (Auto) 3.0, Basophils (%) (Auto) 0.8, Sodium Level 136, Potassium Level 4.0, Chloride Level 102, Carbon Dioxide Level 24, Anion Gap 10, Blood Urea Nitrogen 19H, Creatinine 0.8, Estimat Glomerular Filtration Rate , Glucose Level 96, Calcium Level 9.2, Total Bilirubin 0.7, Aspartate Amino Transf (AST/SGOT) 143H, Alanine Aminotransferase (ALT/SGPT) 25, Alkaline Phosphatase 239H, Total Protein 7.4, Albumin 2.7L, Globulin 4.7, Albumin/Globulin Ratio 0.6L Height (Feet): 6 Height (Inches): 5.00 Weight (Pounds): 180 General Appearance: confused Cardiovascular: normal rate Respiratory/Chest: lungs clear Abdomen: soft Yury Murray MD Jun 23, 2018 21:05
[2018-06-24] VITALS: BP 134/65
[2018-06-24 04:00] VITALS: BP 130/65
[2018-06-24] MEDS: Morphine Sulfate 2mg/ml Inj IVP PRN (04:15)
[2018-06-24] MEDS: HydrALAZINE 10mg Tab ORAL SCH ×3 (05:57→17:34)
--- NOTE | 2018-06-24 06:50 | General Progress Note ---
Assessment/Plan Assessment/Plan # Prostate cancer with extensive metastases -- extensive sclerotic lesions throughout the pelvic bones, spine, ribs, and visualized sternum, compatible with osseous metastases, significantly worsened compared to prior exam. PSA 531 , likely will be further increased as he has not received any treatment --> received prostatectomy in 08/2017 --> again have recommended simple antiandrogen therapy (lupron SQ injection and casodex a PO medication) that will bring his PSA to <5 for most cases >95% of patients --> talked to son 06/20/18 re prognosis, can be significantly improved if treated prostate cancer, but at this time patient continues to decline --> continue to prenatal genetic counselor daily as best as possible --> onco and uro outpatient f/u --> Dr. Gonzalez outpatient f/u --> family wants comfort care # Anemia due to malignancy --> likely worse given progression of disease --> Hgb goal above 7 --> Currently stable. # Bradycardic, second-degree AV block, Mobitz type I --> appreciate recs by Dr. Reed # UTI on abx as per pcp --> on abx # KYMBERLY consider fluids as needed Greatly appreciate consultation! Subjective HEENT: Denies: no symptoms, eye pain, blurred vision, tearing, double vision, ear pain, ear discharge, nose pain, nose congestion, throat pain, throat swelling, mouth pain, mouth swelling, other Cardiovascular: Denies: no symptoms, chest pain, edema, irregular heart rate, lightheadedness, palpitations, syncope, other Respiratory: Denies: no symptoms, cough, orthopnea, shortness of breath, SOB with excertion, SOB at rest, sputum, stridor, wheezing, other Gastrointestinal/Abdominal: Denies: no symptoms, abdomen distended, abdominal pain, black stools, tarry stools, blood in stool, constipated, diarrhea, difficulty swallowing, nausea, poor appetite, poor fluid intake, rectal bleeding , vomiting, other Genitourinary: Denies: no symptoms, burning, discharge, frequency, flank pain, hematuria, incontinence, pain, urgency, other Neurologic/Psychiatric: Denies: no symptoms, anxiety, depressed, emotional problems, headache, numbness, paresthesia, pre-existing deficit, seizure, tingling, tremors, weakness, other Endocrine: Denies: no symptoms, excessive sweating, flushing, intolerance to cold, intolerance to heat, increased hunger, increased thirst, increased urine, unexplained weight gain, unexplained weight loss, other Hematologic/Lymphatic: Denies: no symptoms, anemia, easy bleeding, easy bruising, other Allergies: Coded Allergies: No Known Allergies (Unverified , 08/27/17) Subjective Pt awake and alert. No acute events. H/H stable. VS stable. hematuria improved Objective Last 24 Hour Vital Signs Date Time Temp Pulse Resp B/P (MAP) Pulse Ox O2 Delivery O2 Flow Rate FiO2 06/24/18 05:57 130/65 06/24/18 04:00 74 06/24/18 04:00 97.4 67 21 130/65 (86) 96 97.4 06/24/18 00:00 67 06/24/18 00:00 98.4 67 18 134/65 (88) 95 98.4 06/23/18 23:49 119/67 06/23/18 21:00 Room Air 06/23/18 20:00 97.2 78 20 119/67 (84) 95 97.2 06/23/18 20:00 72 06/23/18 17:47 98.1 06/23/18 17:46 116/66 06/23/18 16:00 97.9 79 22 121/53 (75) 97 97.9 06/23/18 16:00 67 06/23/18 12:05 116/66 06/23/18 12:00 97.8 75 19 126/67 (86) 97 97.8 06/23/18 12:00 77 06/23/18 10:45 98.1 06/23/18 10:14 98.1 06/23/18 09:00 Room Air 06/23/18 08:00 70 06/23/18 08:00 97.3 71 19 116/66 (83) 97 97.3 Intake and Output 06/23/18 06/24/18 19:00 07:00 Output Total 500 ml Balance -500 ml Output Urine Total 500 ml Laboratory Tests 06/23/18 07:40: White Blood Count 8.3, Red Blood Count 4.10L, Hemoglobin 12.3L, Hematocrit 37.0L , Mean Corpuscular Volume 90, Mean Corpuscular Hemoglobin 30.1, Mean Corpuscular Hemoglobin Concent 33.3, Red Cell Distribution Width 12.5, Platelet Count 273, Mean Platelet Volume 7.7, Neutrophils (%) (Auto) 73.6, Lymphocytes (% ) (Auto) 12.4L, Monocytes (%) (Auto) 10.2H, Eosinophils (%) (Auto) 3.0, Basophils (%) (Auto) 0.8, Sodium Level 136, Potassium Level 4.0, Chloride Level 102, Carbon Dioxide Level 24, Anion Gap 10, Blood Urea Nitrogen 19H, Creatinine 0.8, Estimat Glomerular Filtration Rate , Glucose Level 96, Calcium Level 9.2, Total Bilirubin 0.7, Aspartate Amino Transf (AST/SGOT) 143H, Alanine Aminotransferase (ALT/SGPT) 25, Alkaline Phosphatase 239H, Total Protein 7.4, Albumin 2.7L, Globulin 4.7, Albumin/Globulin Ratio 0.6L Height (Feet): 6 Height (Inches): 5.00 Weight (Pounds): 180 General Appearance: no apparent distress EENT: normal ENT inspection Neck: normal alignment Cardiovascular: regular rhythm Respiratory/Chest: normal breath sounds Abdomen: soft Extremities: non-tender Edema: 1+ Leg (L), 1+ Leg (R) Gerard Hernandez MD Jun 24, 2018 06:50
[2018-06-24 08:00] VITALS: BP 139/67
[2018-06-24 08:22] LABS: BASOPHILS % (AUTO) 0.9 % (0.0-2.0); EOSINOPHILS % (AUTO) 3.4 % (0.0-3.0); HEMATOCRIT 36.2 % (42.0-52.0); HEMOGLOBIN 12.7 G/DL (14.2-18.0); LYMPHOCYTES % (AUTO) 11.9 % (20.0-45.0); MEAN CORPUSCULAR VOLUME 89 FL (80-99); MONOCYTES % (AUTO) 11.3 % (1.0-10.0); NEUTROPHILS % (AUTO) 72.5 % (45.0-75.0); PLATELET COUNT 269 K/UL (150-450); RED BLOOD COUNT 4.06 M/UL (4.70-6.10); RED CELL DISTRIBUTION WIDTH 12.7 % (11.6-14.8); WHITE BLOOD COUNT 8.2 K/UL (4.8-10.8)
[2018-06-24 08:45] LABS: ANION GAP 10 mmol/L (5-15); BLOOD UREA NITROGEN 25 mg/dL (7-18); CARBON DIOXIDE 24 MMOL/L (21-32); CHLORIDE 102 MMOL/L (98-107); CREATININE 0.9 MG/DL (0.55-1.30); POTASSIUM 3.9 MMOL/L (3.5-5.1); SODIUM 136 MMOL/L (136-145)
[2018-06-24] MEDS: Docusate 100mg cap ORAL SCH ×3 (08:47→17:20)
[2018-06-24] MEDS: Miralax 17gm pkt ORAL SCH (08:47)
[2018-06-24] MEDS: Bisacodyl EC 5mg tab ORAL SCH (08:47)
--- NOTE | 2018-06-24 10:13 | GI Progress Note ---
Assessment/Plan Problems: (1) Abdominal pain ICD Codes: R10.9 - Unspecified abdominal pain SNOMED: 75687964 (2) Anemia ICD Codes: D64.9 - Anemia, unspecified SNOMED: 602541884 (3) Constipation ICD Codes: K59.00 - Constipation, unspecified SNOMED: 63427778 Status: unchanged Status Narrative Discussed with Dr. Joel. Assessment/Plan Prostate CA s/p prostatectomy with osseous metastases fu oncology recs supportive care / symptomatic treatment pain mgmt zofran prn monitor H&H, prn transfusions bowel regime ppi fu labs swallow eval >> on regular diet The patient was seen and examined at bedside and all new and available data was reviewed in the patients chart. I agree with the above findings, impression and plan. (Patient seen earlier today. Signature stamp does not reflect patient encounter time.). - Rush Joel MD Subjective Subjective generalized pain Objective Last 24 Hour Vital Signs Date Time Temp Pulse Resp B/P (MAP) Pulse Ox O2 Delivery O2 Flow Rate FiO2 06/24/18 09:00 Room Air 06/24/18 08:00 97.2 70 20 139/67 (91) 97 97.2 06/24/18 08:00 72 06/24/18 05:57 130/65 06/24/18 04:00 74 06/24/18 04:00 97.4 67 21 130/65 (86) 96 97.4 06/24/18 00:00 67 06/24/18 00:00 98.4 67 18 134/65 (88) 95 98.4 06/23/18 23:49 119/67 06/23/18 21:00 Room Air 06/23/18 20:00 97.2 78 20 119/67 (84) 95 97.2 06/23/18 20:00 72 06/23/18 17:47 98.1 06/23/18 17:46 116/66 06/23/18 16:00 97.9 79 22 121/53 (75) 97 97.9 06/23/18 16:00 67 06/23/18 12:05 116/66 06/23/18 12:00 97.8 75 19 126/67 (86) 97 97.8 06/23/18 12:00 77 06/23/18 10:45 98.1 06/23/18 10:14 98.1 Intake and Output 06/23/18 06/24/18 19:00 07:00 Intake Total 3360 ml Output Total 500 ml 300 ml Balance -500 ml 3060 ml Intake Oral 3360 ml Output Urine Total 500 ml 300 ml Laboratory Tests Test 06/24/18 06:05 White Blood Count 8.2 K/UL (4.8-10.8) Red Blood Count 4.06 M/UL (4.70-6.10) L Hemoglobin 12.7 G/DL (14.2-18.0) L Hematocrit 36.2 % (42.0-52.0) L Mean Corpuscular Volume 89 FL (80-99) Mean Corpuscular Hemoglobin 31.2 PG (27.0-31.0) H Mean Corpuscular Hemoglobin Concent 34.9 G/DL (32.0-36.0) Red Cell Distribution Width 12.7 % (11.6-14.8) Platelet Count 269 K/UL (150-450) Mean Platelet Volume 7.8 FL (6.5-10.1) Neutrophils (%) (Auto) 72.5 % (45.0-75.0) Lymphocytes (%) (Auto) 11.9 % (20.0-45.0) L Monocytes (%) (Auto) 11.3 % (1.0-10.0) H Eosinophils (%) (Auto) 3.4 % (0.0-3.0) H Basophils (%) (Auto) 0.9 % (0.0-2.0) Sodium Level 136 MMOL/L (136-145) Potassium Level 3.9 MMOL/L (3.5-5.1) Chloride Level 102 MMOL/L (98-107) Carbon Dioxide Level 24 MMOL/L (21-32) Anion Gap 10 mmol/L (5-15) Blood Urea Nitrogen 25 mg/dL (7-18) H Creatinine 0.9 MG/DL (0.55-1.30) Estimat Glomerular Filtration Rate mL/min (>60) Glucose Level 103 MG/DL (74-106) Calcium Level 9.0 MG/DL (8.5-10.1) Height (Feet): 6 Height (Inches): 5.00 Weight (Pounds): 180 General Appearance: WD/WN, no apparent distress, alert Cardiovascular: normal rate Respiratory/Chest: normal breath sounds, no respiratory distress Abdominal Exam: normal bowel sounds, non tender, soft Extremities: non-tender Kristi Hernandez NP Jun 24, 2018 10:13
--- NOTE | 2018-06-24 11:06 | Cardiology Progress Note ---
Assessment/Plan Status: stable Assessment/Plan Assessment/Plan Assessment/Plan 1. Bradycardia with high-grade AV block and 2:1 block off any AV feliciano blocking agents. The patient is still Full Code. Family still undecided regarding pacer Currently heart rates in 70, no symptoms. 2. Hypotension. Off BP meds ok 2. Metastatic prostate cancer, status post prostatectomy in August. 3. Abdominal pain under evaluation by Dr. Joel. 4. Dementia. 5. Abdominal pain/constipation 6. Urinary tract infection Subjective Cardiovascular: Reports: no symptoms Respiratory: Reports: no symptoms Gastrointestinal/Abdominal: Reports: no symptoms Genitourinary: Reports: no symptoms Subjective C[employer]AGE [employer] Pt awake and alert. No acute events. H/H stable. VS stable. hematuria improved. Monitor Sinus rhythm with mobitz 1 and 2 heart block. Objective Last 24 Hour Vital Signs Date Time Temp Pulse Resp B/P (MAP) Pulse Ox O2 Delivery O2 Flow Rate FiO2 06/24/18 09:00 Room Air 06/24/18 08:00 97.2 70 20 139/67 (91) 97 97.2 06/24/18 08:00 72 06/24/18 05:57 130/65 06/24/18 04:00 74 06/24/18 04:00 97.4 67 21 130/65 (86) 96 97.4 06/24/18 00:00 67 06/24/18 00:00 98.4 67 18 134/65 (88) 95 98.4 06/23/18 23:49 119/67 06/23/18 21:00 Room Air 06/23/18 20:00 97.2 78 20 119/67 (84) 95 97.2 06/23/18 20:00 72 06/23/18 17:47 98.1 06/23/18 17:46 116/66 06/23/18 16:00 97.9 79 22 121/53 (75) 97 97.9 06/23/18 16:00 67 06/23/18 12:05 116/66 06/23/18 12:00 97.8 75 19 126/67 (86) 97 97.8 06/23/18 12:00 77 General Appearance: no apparent distress, alert EENT: PERRL/EOMI, normal ENT inspection Neck: non-tender, normal alignment, supple, normal inspection, no JVD Rhythm: NSR Cardiovascular: normal peripheral pulses, normal rate, arrhythmia Respiratory/Chest: chest wall non-tender, lungs clear, normal breath sounds, no respiratory distress Abdomen: normal bowel sounds, non tender, soft, no organomegaly Extremities: normal range of motion, non-tender Neurologic: housing inspector II-XII grossly normal, no motor/sensory deficits, alert, oriented x 3, responsive Intake and Output 06/23/18 06/24/18 19:00 07:00 Intake Total 3360 ml Output Total 500 ml 300 ml Balance -500 ml 3060 ml Intake Oral 3360 ml Output Urine Total 500 ml 300 ml Laboratory Tests Test 06/24/18 06:05 06/24/18 10:25 White Blood Count 8.2 K/UL (4.8-10.8) Red Blood Count 4.06 M/UL (4.70-6.10) L Hemoglobin 12.7 G/DL (14.2-18.0) L Hematocrit 36.2 % (42.0-52.0) L Mean Corpuscular Volume 89 FL (80-99) Mean Corpuscular Hemoglobin 31.2 PG (27.0-31.0) H Mean Corpuscular Hemoglobin Concent 34.9 G/DL (32.0-36.0) Red Cell Distribution Width 12.7 % (11.6-14.8) Platelet Count 269 K/UL (150-450) Mean Platelet Volume 7.8 FL (6.5-10.1) Neutrophils (%) (Auto) 72.5 % (45.0-75.0) Lymphocytes (%) (Auto) 11.9 % (20.0-45.0) L Monocytes (%) (Auto) 11.3 % (1.0-10.0) H Eosinophils (%) (Auto) 3.4 % (0.0-3.0) H Basophils (%) (Auto) 0.9 % (0.0-2.0) Sodium Level 136 MMOL/L (136-145) Potassium Level 3.9 MMOL/L (3.5-5.1) Chloride Level 102 MMOL/L (98-107) Carbon Dioxide Level 24 MMOL/L (21-32) Anion Gap 10 mmol/L (5-15) Blood Urea Nitrogen 25 mg/dL (7-18) H Creatinine 0.9 MG/DL (0.55-1.30) Estimat Glomerular Filtration Rate mL/min (>60) Glucose Level 103 MG/DL (74-106) Calcium Level 9.0 MG/DL (8.5-10.1) Arterial Blood pH 7.471 (7.350-7.450) Arterial Blood Partial Pressure CO2 37.4 mmHg (35.0-45.0) Arterial Blood Partial Pressure O2 129.3 mmHg (75.0-100.0) H Arterial Blood HCO3 26.7 mmol/L (22.0-26.0) H Arterial Blood Oxygen Saturation 98.0 % (95-100) Arterial Blood Base Excess 3.1 (-2-2) H Vipin Test Positive Vlad Bledsoe MD Jun 24, 2018 11:06
--- NOTE | 2018-06-24 11:50 | Nephrology Progress Note ---
Assessment/Plan Problem List: (1) Bradycardia (2) Renal insufficiency (3) UTI (urinary tract infection) Assessment Renal failure- Acute on Chronic resolved UTI Bradyarrythmia improved somewhat anemia Prostate Ca with Mets Plan per cardio Minitor renal parameter monitoring specialist trial hydralazine as refusing pacer 2D echo noted- Midodrine as needed Per orders Subjective ROS Limited/Unobtainable: No Constitutional: Reports: malaise Objective Objective Last 24 Hour Vital Signs Date Time Temp Pulse Resp B/P (MAP) Pulse Ox O2 Delivery O2 Flow Rate FiO2 06/24/18 11:25 139/67 06/24/18 09:00 Room Air 06/24/18 08:00 97.2 70 20 139/67 (91) 97 97.2 06/24/18 08:00 72 06/24/18 05:57 130/65 06/24/18 04:00 74 06/24/18 04:00 97.4 67 21 130/65 (86) 96 97.4 06/24/18 00:00 67 06/24/18 00:00 98.4 67 18 134/65 (88) 95 98.4 06/23/18 23:49 119/67 06/23/18 21:00 Room Air 06/23/18 20:00 97.2 78 20 119/67 (84) 95 97.2 06/23/18 20:00 72 06/23/18 17:47 98.1 06/23/18 17:46 116/66 06/23/18 16:00 97.9 79 22 121/53 (75) 97 97.9 06/23/18 16:00 67 06/23/18 12:05 116/66 06/23/18 12:00 97.8 75 19 126/67 (86) 97 97.8 06/23/18 12:00 77 Intake and Output 06/23/18 06/24/18 19:00 07:00 Intake Total 3360 ml Output Total 500 ml 300 ml Balance -500 ml 3060 ml Intake Oral 3360 ml Output Urine Total 500 ml 300 ml Laboratory Tests 06/24/18 06:05: White Blood Count 8.2, Red Blood Count 4.06L, Hemoglobin 12.7L, Hematocrit 36.2L , Mean Corpuscular Volume 89, Mean Corpuscular Hemoglobin 31.2H, Mean Corpuscular Hemoglobin Concent 34.9, Red Cell Distribution Width 12.7, Platelet Count 269, Mean Platelet Volume 7.8, Neutrophils (%) (Auto) 72.5, Lymphocytes (% ) (Auto) 11.9L, Monocytes (%) (Auto) 11.3H, Eosinophils (%) (Auto) 3.4H, Basophils (%) (Auto) 0.9, Sodium Level 136, Potassium Level 3.9, Chloride Level 102, Carbon Dioxide Level 24, Anion Gap 10, Blood Urea Nitrogen 25H, Creatinine 0.9, Estimat Glomerular Filtration Rate , Glucose Level 103, Calcium Level 9.0 06/24/18 10:25: Arterial Blood pH 7.471H, Arterial Blood Partial Pressure CO2 37.4, Arterial Blood Partial Pressure O2 129.3H, Arterial Blood HCO3 26.7H, Arterial Blood Oxygen Saturation 98.0, Arterial Blood Base Excess 3.1H, Vipin Test Positive Height (Feet): 6 Height (Inches): 5.00 Weight (Pounds): 180 General Appearance: no apparent distress Cardiovascular: bradycardia, other - variable Respiratory/Chest: decreased breath sounds Abdomen: soft Objective no change Christopher Coronado MD Jun 24, 2018 11:50
[2018-06-24 12:00] VITALS: BP 121/72
--- NOTE | 2018-06-24 12:32 | Infectious Diseases Prog Note ---
Assessment/Plan Assessment/Plan A; Cystitis Metastatic prostatic cancer Bradycardia AV block Dementia P; observe off antibiotic Subjective ROS Limited/Unobtainable: Yes Allergies: Coded Allergies: No Known Allergies (Unverified , 08/27/17) Objective Vital Signs Last 24 Hour Vital Signs Date Time Temp Pulse Resp B/P (MAP) Pulse Ox O2 Delivery O2 Flow Rate FiO2 06/24/18 12:00 97.3 67 18 121/72 (88) 96 97.3 06/24/18 11:25 139/67 06/24/18 09:00 Room Air 06/24/18 08:00 97.2 70 20 139/67 (91) 97 97.2 06/24/18 08:00 72 06/24/18 05:57 130/65 06/24/18 04:00 74 06/24/18 04:00 97.4 67 21 130/65 (86) 96 97.4 06/24/18 00:00 67 06/24/18 00:00 98.4 67 18 134/65 (88) 95 98.4 06/23/18 23:49 119/67 06/23/18 21:00 Room Air 06/23/18 20:00 97.2 78 20 119/67 (84) 95 97.2 06/23/18 20:00 72 06/23/18 17:47 98.1 06/23/18 17:46 116/66 06/23/18 16:00 97.9 79 22 121/53 (75) 97 97.9 06/23/18 16:00 67 Height (Feet): 6 Height (Inches): 5.00 Weight (Pounds): 180 General Appearance: no acute distress HEENT: mucous membranes moist Respiratory/Chest: lungs clear Cardiovascular: normal rate Abdomen: soft, non tender Genitourinary: other - Orta catheter Extremities: no edema Neurologic/Psychiatric: other - sleeping Laboratory Tests Test 06/24/18 06:05 06/24/18 10:25 White Blood Count 8.2 K/UL (4.8-10.8) Red Blood Count 4.06 M/UL (4.70-6.10) L Hemoglobin 12.7 G/DL (14.2-18.0) L Hematocrit 36.2 % (42.0-52.0) L Mean Corpuscular Volume 89 FL (80-99) Mean Corpuscular Hemoglobin 31.2 PG (27.0-31.0) H Mean Corpuscular Hemoglobin Concent 34.9 G/DL (32.0-36.0) Red Cell Distribution Width 12.7 % (11.6-14.8) Platelet Count 269 K/UL (150-450) Mean Platelet Volume 7.8 FL (6.5-10.1) Neutrophils (%) (Auto) 72.5 % (45.0-75.0) Lymphocytes (%) (Auto) 11.9 % (20.0-45.0) L Monocytes (%) (Auto) 11.3 % (1.0-10.0) H Eosinophils (%) (Auto) 3.4 % (0.0-3.0) H Basophils (%) (Auto) 0.9 % (0.0-2.0) Sodium Level 136 MMOL/L (136-145) Potassium Level 3.9 MMOL/L (3.5-5.1) Chloride Level 102 MMOL/L (98-107) Carbon Dioxide Level 24 MMOL/L (21-32) Anion Gap 10 mmol/L (5-15) Blood Urea Nitrogen 25 mg/dL (7-18) H Creatinine 0.9 MG/DL (0.55-1.30) Estimat Glomerular Filtration Rate mL/min (>60) Glucose Level 103 MG/DL (74-106) Calcium Level 9.0 MG/DL (8.5-10.1) Arterial Blood pH 7.471 (7.350-7.450) Arterial Blood Partial Pressure CO2 37.4 mmHg (35.0-45.0) Arterial Blood Partial Pressure O2 129.3 mmHg (75.0-100.0) H Arterial Blood HCO3 26.7 mmol/L (22.0-26.0) H Arterial Blood Oxygen Saturation 98.0 % (95-100) Arterial Blood Base Excess 3.1 (-2-2) H Vipin Test Positive Current Medications Medications (Trade) Dose Ordered Sig/Pancho Route PRN Reason Start Time Stop Time Status Last Admin Dose Admin Acetaminophen (Tylenol) 500 mg Q4H PRN ORAL Mild Pain/Temp > 100.5 06/18/18 23:30 07/18/18 23:29 06/22/18 13:51 Albuterol/ Ipratropium (Albuterol/ Ipratropium) 3 ml Q6HRT HHN 06/24/18 13:00 06/29/18 12:59 Bisacodyl (Dulcolax) 10 mg DAILY ORAL 06/22/18 09:00 07/22/18 08:59 06/22/18 09:35 Docusate Sodium (Colace) 100 mg THREE TIMES A DAY ORAL 06/19/18 13:00 07/19/18 12:59 06/23/18 17:46 Hydralazine HCl (Apresoline) 10 mg Q6HR ORAL 06/21/18 18:00 07/21/18 17:59 06/24/18 11:25 Iopamidol (Isovue-300 100ml) 100 ml NOW PRN INJ Radiology Procedure 06/18/18 17:30 Lorazepam (Ativan 2mg/ml 1ml) 1 mg Q6H PRN IV For Anxiety 06/19/18 12:15 06/26/18 12:14 06/24/18 01:37 Magnesium Hydroxide (Mom) 30 ml Q4H PRN ORAL Constipation 06/21/18 11:00 07/21/18 10:59 06/22/18 01:06 Morphine Sulfate (Morphine Sulfate) 2 mg Q4H PRN IVP Severe Breakthru Pain (>7) 06/19/18 15:42 06/26/18 15:41 06/24/18 04:15 Pantoprazole (Protonix) 40 mg DAILY ORAL 06/19/18 10:15 07/19/18 10:14 06/24/18 08:47 Polyethylene Glycol (Miralax) 17 gm DAILY ORAL 06/22/18 09:00 07/22/18 08:59 06/22/18 09:35 Sennosides (Senokot) 1 tab DAILY PRN ORAL Constipation 06/21/18 11:00 07/21/18 10:59 Mario Daigle MD Jun 24, 2018 12:32
[2018-06-24] MEDS: Albuterol/Ipratropium 3ml neb HHN SCH ×2 (13:46→19:43)
--- NOTE | 2018-06-24 13:55 | Consultation ---
Consult Note Assessment/Plan DICT # [id number] Neo Mei MD Jun 24, 2018 13:55
[2018-06-24] MEDS ORDERED: guaiFENesin 100mg/5ml Liq ud ORAL PRN (13:56)
[2018-06-24 16:00] VITALS: BP 128/74
--- NOTE | 2018-06-24 16:19 | Diagnostic Imaging Report ---
Indication: Dyspnea Comparison: 06/18/2018 A single view chest radiograph was obtained. Findings: There is a destructive process involving the posterior lateral aspect of the right sixth rib which is ill-defined with the indistinct margins and suggestion of expansion. Given the patient's age, the possibility of a metastatic neoplasm or malignancy should be considered. Further evaluation is recommended. Bone scan and/or CT suggested for further workup. The lungs appear clear. Mild cardiomegaly noted. Aorta is mildly enlarged consistent with atherosclerotic vascular disease. Generalized bone mineralization is decreased in keeping with the patient's age. IMPRESSION: Abnormal right sixth rib. Metastatic neoplasm or myeloma could be present. Further evaluation is recommended.
[2018-06-24] MEDS: guaiFENesin ER 600mg tab ORAL SCH (17:34)
[2018-06-24 20:00] VITALS: BP 126/72
--- NOTE | 2018-06-24 20:45 | Consultation ---
DATE OF CONSULTATION: 06/24/2018 PULMONARY CONSULTATION CONSULTING PHYSICIAN: Neo Mei M.D. REFERRING PHYSICIAN: Yury Murray M.D. REASON FOR CONSULTATION: Cough and shortness of breath. HISTORY OF PRESENT ILLNESS: The patient is an 83-year-old male smoker with history of prostate cancer, status post prostatectomy, who refused chemotherapy and radiation, now presented to the hospital with abdominal pain with dysuria and hematuria initially concerning for UTI. The patient was started on antibiotics, initially on Zosyn. Blood cultures were all no growth, so he is currently off antibiotics. Pulmonary consultation is called today because the family is concerned that the patient has been coughing for the past few days with productive phlegm. They state the patient was smoking up until the day he came to the hospital. The patient has never been diagnosed with COPD or any other underlying lung disease. PAST MEDICAL HISTORY: 1. Metastatic prostate cancer. 2. Current daily smoker. 3. Anemia. 4. Known osseous metastatic disease. 5. Bradycardia with AV block. 6. Dementia. ALLERGIES: No known drug allergies. MEDICATIONS: Iuswy-pc-zoelsishs medications reviewed. Current medications reviewed. SOCIAL HISTORY: He is a current daily smoker. No drug or alcohol use. FAMILY HISTORY: Noncontributory. REVIEW OF SYSTEMS: Negative other than history of present illness. PHYSICAL EXAMINATION: VITAL SIGNS: Temperature 97.2, pulse 70, blood pressure 139/67, respiratory rate 20. GENERAL: He is an elderly demented male in no acute distress. Awake, alert, and oriented x3. HEENT: Normocephalic and atraumatic. Oropharynx is clear with moist mucous membranes. NECK: Supple without lymphadenopathy or JVD. CHEST: Clear with faint rhonchi. HEART: Regular rate and rhythm. ABDOMEN: Soft, nontender, and nondistended. EXTREMITIES: No cyanosis, clubbing, or edema. ANCILLARY DATA: ABG 7.47/37/129/26. White count 8.2, hemoglobin 12.7, and platelet count 269,000. INR 1. Chemistry within normal limits. Urinalysis, 2+ blood, 1+ protein. Chest x-ray from admission, reviewed by myself showed some patchy basilar infiltrates. Echocardiogram showed LVEF 55%, mild LVH, normal IVC, mild MR, PA pressure of 34. ASSESSMENT: The patient is an 83-year-old male with metastatic prostate cancer with known osseous metastases, admitted with abdominal pain, initially concerning for UTI, now with 2-3 days of increased coughing. He does not appear infected from pulmonary standpoint. He does have history of extensive tobacco use, though has never been formally diagnosed with COPD. I suspect he has a component of bronchitis plus or minus smoker's cough. PROBLEM LIST: 1. Cough and congestion, likely secondary to bronchitis and smoker's cough. 2. Extensive former smoker without stated history of COPD. 3. Bibasilar atelectasis. 4. Metastatic prostate cancer, status post prostatectomy, who refused chemoradiation with known osseous metastases. 5. Anemia. 6. Bradycardia, AV block. 7. Abdominal pain. TREATMENT PLAN: 1. Optimize pulmonary hygiene/mobilize as tolerated. 2. Mejej-xsv-uljac and p.r.n. bronchodilators. 3. Mucinex and p.r.n. Robitussin. 4. Observe off antibiotics and monitor for signs of a respiratory infection. 5. Swallow evaluation. 6. Follow up consultant in ergonomics and safety records, we would consider further imaging, but defer to GI and Oncology. 7. DVT prophylaxis, SCDs. 8. Aspiration precautions. 9. DNR/DNI, continue to address goals of care. Dr. Murray, thank you for allowing me to assist in the care of your patient. If I may of any assistance in the future, please do not hesitate to ask. Bharati Roldan JOB#: [id number] CC:
--- NOTE | 2018-06-24 20:46 | General Progress Note ---
Assessment/Plan Problem List: (1) Anemia ICD Codes: D64.9 - Anemia, unspecified SNOMED: 241076298 (2) Abdominal pain ICD Codes: R10.9 - Unspecified abdominal pain SNOMED: 38203506 (3) Hematuria ICD Codes: R31.9 - Hematuria, unspecified SNOMED: 86096785 (4) Bradycardia ICD Codes: R00.1 - Bradycardia, unspecified SNOMED: 54427357 (5) Renal insufficiency ICD Codes: N28.9 - Disorder of kidney and ureter, unspecified SNOMED: 836126240, 052719535 (6) UTI (urinary tract infection) ICD Codes: N39.0 - Urinary tract infection, site not specified SNOMED: 74800468 (7) Abnormal urogenital findings ICD Codes: R89.9 - Unspecified abnormal finding in specimens from other organs , systems and tissues SNOMED: 015850381, 781622909 Status: progressing Assessment/Plan hematurea improving dr zepeda spoke w family re findings no acute events oredered st eval s/p prostate cancer Subjective ROS Limited/Unobtainable: Yes Allergies: Coded Allergies: No Known Allergies (Unverified , 08/27/17) Objective Last 24 Hour Vital Signs Date Time Temp Pulse Resp B/P (MAP) Pulse Ox O2 Delivery O2 Flow Rate FiO2 06/24/18 19:43 82 18 Room Air 21 06/24/18 19:43 Room Air 21 06/24/18 19:43 95 Room Air 21 06/24/18 19:43 82 18 95 Room Air 21 06/24/18 17:34 128/74 06/24/18 16:00 97.0 70 20 128/74 (92) 95 97.0 06/24/18 16:00 87 06/24/18 13:53 96 Room Air 64 06/24/18 13:53 Room Air 21 06/24/18 12:00 97.3 67 18 121/72 (88) 96 97.3 06/24/18 12:00 61 06/24/18 11:25 139/67 06/24/18 09:00 Room Air 06/24/18 08:00 97.2 70 20 139/67 (91) 97 97.2 06/24/18 08:00 72 06/24/18 05:57 130/65 06/24/18 04:00 74 06/24/18 04:00 97.4 67 21 130/65 (86) 96 97.4 06/24/18 00:00 67 06/24/18 00:00 98.4 67 18 134/65 (88) 95 98.4 06/23/18 23:49 119/67 06/23/18 21:00 Room Air Intake and Output 06/23/18 06/24/18 19:00 07:00 Intake Total 3360 ml Output Total 500 ml 300 ml Balance -500 ml 3060 ml Intake Oral 3360 ml Output Urine Total 500 ml 300 ml Laboratory Tests 06/24/18 06:05: White Blood Count 8.2, Red Blood Count 4.06L, Hemoglobin 12.7L, Hematocrit 36.2L , Mean Corpuscular Volume 89, Mean Corpuscular Hemoglobin 31.2H, Mean Corpuscular Hemoglobin Concent 34.9, Red Cell Distribution Width 12.7, Platelet Count 269, Mean Platelet Volume 7.8, Neutrophils (%) (Auto) 72.5, Lymphocytes (% ) (Auto) 11.9L, Monocytes (%) (Auto) 11.3H, Eosinophils (%) (Auto) 3.4H, Basophils (%) (Auto) 0.9, Sodium Level 136, Potassium Level 3.9, Chloride Level 102, Carbon Dioxide Level 24, Anion Gap 10, Blood Urea Nitrogen 25H, Creatinine 0.9, Estimat Glomerular Filtration Rate , Glucose Level 103, Calcium Level 9.0 06/24/18 10:25: Arterial Blood pH 7.471H, Arterial Blood Partial Pressure CO2 37.4, Arterial Blood Partial Pressure O2 129.3H, Arterial Blood HCO3 26.7H, Arterial Blood Oxygen Saturation 98.0, Arterial Blood Base Excess 3.1H, Vipin Test Positive Height (Feet): 6 Height (Inches): 5.00 Weight (Pounds): 180 Cardiovascular: normal rate Respiratory/Chest: lungs clear Abdomen: soft Yury Murray MD Jun 24, 2018 20:46
--- NOTE | 2018-06-24 23:20 | Psych Consult Progress Note ---
Psych Consult Progress Note Consult 06/23/18 Dementia with behavioral dist psychotic d/o -ativan 1mg iv q4hr prn agitation -the pt lacks capacity to make decisions. soft restraints prn the pt son gave consent to pace maker the pt may not refuse any tests or meds as he lacks capacity to make decisions Vital Signs Last 24 Hour Vital Signs Date Time Temp Pulse Resp B/P (MAP) Pulse Ox O2 Delivery O2 Flow Rate FiO2 06/24/18 19:43 82 18 Room Air 21 06/24/18 19:43 Room Air 21 06/24/18 19:43 95 Room Air 21 06/24/18 19:43 82 18 95 Room Air 21 06/24/18 17:34 128/74 06/24/18 16:00 97.0 70 20 128/74 (92) 95 97.0 06/24/18 16:00 87 06/24/18 13:53 96 Room Air 64 06/24/18 13:53 Room Air 21 06/24/18 12:00 97.3 67 18 121/72 (88) 96 97.3 06/24/18 12:00 61 06/24/18 11:25 139/67 06/24/18 09:00 Room Air 06/24/18 08:00 97.2 70 20 139/67 (91) 97 97.2 06/24/18 08:00 72 06/24/18 05:57 130/65 06/24/18 04:00 74 06/24/18 04:00 97.4 67 21 130/65 (86) 96 97.4 06/24/18 00:00 67 06/24/18 00:00 98.4 67 18 134/65 (88) 95 98.4 06/23/18 23:49 119/67 Labs Laboratory Tests Test 06/24/18 06:05 06/24/18 10:25 White Blood Count 8.2 K/UL (4.8-10.8) Red Blood Count 4.06 M/UL (4.70-6.10) L Hemoglobin 12.7 G/DL (14.2-18.0) L Hematocrit 36.2 % (42.0-52.0) L Mean Corpuscular Volume 89 FL (80-99) Mean Corpuscular Hemoglobin 31.2 PG (27.0-31.0) H Mean Corpuscular Hemoglobin Concent 34.9 G/DL (32.0-36.0) Red Cell Distribution Width 12.7 % (11.6-14.8) Platelet Count 269 K/UL (150-450) Mean Platelet Volume 7.8 FL (6.5-10.1) Neutrophils (%) (Auto) 72.5 % (45.0-75.0) Lymphocytes (%) (Auto) 11.9 % (20.0-45.0) L Monocytes (%) (Auto) 11.3 % (1.0-10.0) H Eosinophils (%) (Auto) 3.4 % (0.0-3.0) H Basophils (%) (Auto) 0.9 % (0.0-2.0) Sodium Level 136 MMOL/L (136-145) Potassium Level 3.9 MMOL/L (3.5-5.1) Chloride Level 102 MMOL/L (98-107) Carbon Dioxide Level 24 MMOL/L (21-32) Anion Gap 10 mmol/L (5-15) Blood Urea Nitrogen 25 mg/dL (7-18) H Creatinine 0.9 MG/DL (0.55-1.30) Estimat Glomerular Filtration Rate mL/min (>60) Glucose Level 103 MG/DL (74-106) Calcium Level 9.0 MG/DL (8.5-10.1) Arterial Blood pH 7.471 (7.350-7.450) Arterial Blood Partial Pressure CO2 37.4 mmHg (35.0-45.0) Arterial Blood Partial Pressure O2 129.3 mmHg (75.0-100.0) H Arterial Blood HCO3 26.7 mmol/L (22.0-26.0) H Arterial Blood Oxygen Saturation 98.0 % (95-100) Arterial Blood Base Excess 3.1 (-2-2) H Vipin Test Positive Medications Current Medications Medications (Trade) Dose Ordered Sig/Pancho Route PRN Reason Start Time Stop Time Status Last Admin Dose Admin Acetaminophen (Tylenol) 500 mg Q4H PRN ORAL Mild Pain/Temp > 100.5 06/18/18 23:30 07/18/18 23:29 06/22/18 13:51 Albuterol/ Ipratropium (Albuterol/ Ipratropium) 3 ml Q6HRT HHN 06/24/18 13:00 06/29/18 12:59 06/24/18 19:43 Bisacodyl (Dulcolax) 10 mg DAILY ORAL 06/22/18 09:00 07/22/18 08:59 06/22/18 09:35 Docusate Sodium (Colace) 100 mg THREE TIMES A DAY ORAL 06/19/18 13:00 07/19/18 12:59 06/23/18 17:46 Guaifenesin (Mucinex ER) 600 mg TWICE A DAY ORAL 06/24/18 18:00 07/24/18 17:59 06/24/18 17:34 Guaifenesin (Robitussin) 100 mg Q4H PRN ORAL For Cough 06/24/18 13:56 07/24/18 13:55 Hydralazine HCl (Apresoline) 10 mg Q6HR ORAL 06/21/18 18:00 07/21/18 17:59 06/24/18 17:34 Iopamidol (Isovue-300 100ml) 100 ml NOW PRN INJ Radiology Procedure 06/18/18 17:30 Lorazepam (Ativan 2mg/ml 1ml) 1 mg Q6H PRN IV For Anxiety 06/19/18 12:15 06/26/18 12:14 06/24/18 01:37 Magnesium Hydroxide (Mom) 30 ml Q4H PRN ORAL Constipation 06/21/18 11:00 07/21/18 10:59 06/22/18 01:06 Morphine Sulfate (Morphine Sulfate) 2 mg Q4H PRN IVP Severe Breakthru Pain (>7) 06/19/18 15:42 06/26/18 15:41 06/24/18 04:15 Pantoprazole (Protonix) 40 mg DAILY ORAL 06/19/18 10:15 07/19/18 10:14 06/24/18 08:47 Polyethylene Glycol (Miralax) 17 gm DAILY ORAL 06/22/18 09:00 07/22/18 08:59 06/22/18 09:35 Sennosides (Senokot) 1 tab DAILY PRN ORAL Constipation 06/21/18 11:00 07/21/18 10:59 Vilma Medina MD Jun 24, 2018 23:20
--- NOTE | 2018-06-24 23:20 | General Progress Note ---
Assessment/Plan Status: stable Assessment/Plan Dementia with behavioral dist psychotic d/o -ativan 1mg iv q4hr prn agitation -the pt lacks capacity to make decisions. soft restraints prn the pt son gave consent to pace maker the pt may not refuse any tests or meds as he lacks capacity to make decisions Subjective Date patient seen: Jun 24, 2018 Neurologic/Psychiatric: Reports: anxiety, depressed Allergies: Coded Allergies: No Known Allergies (Unverified , 08/27/17) Subjective the pt is confused was agitated Objective Last 24 Hour Vital Signs Date Time Temp Pulse Resp B/P (MAP) Pulse Ox O2 Delivery O2 Flow Rate FiO2 06/24/18 19:43 82 18 Room Air 21 06/24/18 19:43 Room Air 21 06/24/18 19:43 95 Room Air 21 06/24/18 19:43 82 18 95 Room Air 21 06/24/18 17:34 128/74 06/24/18 16:00 97.0 70 20 128/74 (92) 95 97.0 06/24/18 16:00 87 06/24/18 13:53 96 Room Air 64 06/24/18 13:53 Room Air 21 06/24/18 12:00 97.3 67 18 121/72 (88) 96 97.3 06/24/18 12:00 61 06/24/18 11:25 139/67 06/24/18 09:00 Room Air 06/24/18 08:00 97.2 70 20 139/67 (91) 97 97.2 06/24/18 08:00 72 06/24/18 05:57 130/65 06/24/18 04:00 74 06/24/18 04:00 97.4 67 21 130/65 (86) 96 97.4 06/24/18 00:00 67 06/24/18 00:00 98.4 67 18 134/65 (88) 95 98.4 06/23/18 23:49 119/67 Intake and Output 06/23/18 06/24/18 19:00 07:00 Intake Total 3360 ml Output Total 500 ml 300 ml Balance -500 ml 3060 ml Intake Oral 3360 ml Output Urine Total 500 ml 300 ml Laboratory Tests 06/24/18 06:05: White Blood Count 8.2, Red Blood Count 4.06L, Hemoglobin 12.7L, Hematocrit 36.2L , Mean Corpuscular Volume 89, Mean Corpuscular Hemoglobin 31.2H, Mean Corpuscular Hemoglobin Concent 34.9, Red Cell Distribution Width 12.7, Platelet Count 269, Mean Platelet Volume 7.8, Neutrophils (%) (Auto) 72.5, Lymphocytes (% ) (Auto) 11.9L, Monocytes (%) (Auto) 11.3H, Eosinophils (%) (Auto) 3.4H, Basophils (%) (Auto) 0.9, Sodium Level 136, Potassium Level 3.9, Chloride Level 102, Carbon Dioxide Level 24, Anion Gap 10, Blood Urea Nitrogen 25H, Creatinine 0.9, Estimat Glomerular Filtration Rate , Glucose Level 103, Calcium Level 9.0 06/24/18 10:25: Arterial Blood pH 7.471H, Arterial Blood Partial Pressure CO2 37.4, Arterial Blood Partial Pressure O2 129.3H, Arterial Blood HCO3 26.7H, Arterial Blood Oxygen Saturation 98.0, Arterial Blood Base Excess 3.1H, Vipin Test Positive Height (Feet): 6 Height (Inches): 5.00 Weight (Pounds): 180 General Appearance: no apparent distress, alert, confused, agitated Vilma Medina MD Jun 24, 2018 23:20
[2018-06-25] VITALS: BP 123/74
[2018-06-25] MEDS: Albuterol/Ipratropium 3ml neb HHN SCH ×4 (00:39→19:57)
[2018-06-25 04:00] VITALS: BP 125/65
[2018-06-25] MEDS: HydrALAZINE 10mg Tab ORAL SCH ×4 (06:00→17:45)
[2018-06-25 08:00] VITALS: BP 109/67
[2018-06-25] MEDS: Docusate 100mg cap ORAL SCH ×3 (08:58→17:45)
[2018-06-25] MEDS: guaiFENesin ER 600mg tab ORAL SCH ×2 (08:58→17:45)
[2018-06-25] MEDS: Bisacodyl EC 5mg tab ORAL SCH (08:59)
[2018-06-25] MEDS: Miralax 17gm pkt ORAL SCH (08:59)
--- NOTE | 2018-06-25 10:29 | Nephrology Progress Note ---
Assessment/Plan Problem List: (1) Bradycardia (2) Renal insufficiency (3) UTI (urinary tract infection) Assessment Renal failure- Acute on Chronic resolved UTI Bradyarrythmia improved somewhat anemia Prostate Ca with Mets Plan per cardio Minitor renal parameter lab support technician trial hydralazine as refusing pacer 2D echo noted- Midodrine as needed Per orders Subjective ROS Limited/Unobtainable: No Constitutional: Reports: malaise, weakness Objective Objective Last 24 Hour Vital Signs Date Time Temp Pulse Resp B/P (MAP) Pulse Ox O2 Delivery O2 Flow Rate FiO2 06/25/18 08:00 98.9 84 18 109/67 (81) 95 98.9 06/25/18 07:55 86 18 98 Room Air 21 06/25/18 07:45 Room Air 21 06/25/18 07:45 89 18 96 Room Air 21 06/25/18 07:45 96 Room Air 21 06/25/18 06:00 125/65 06/25/18 04:00 97.5 80 19 125/65 (85) 96 97.5 06/25/18 04:00 78 06/25/18 00:49 86 18 97 Room Air 21 06/25/18 00:39 82 18 93 Room Air 21 06/25/18 00:00 90 06/25/18 00:00 123/74 06/25/18 00:00 97.2 89 18 123/74 (90) 96 97.2 06/24/18 23:41 Room Air 21 06/24/18 21:00 Room Air 06/24/18 20:00 90 06/24/18 20:00 98.1 83 17 126/72 (90) 96 98.1 06/24/18 19:53 82 18 95 Room Air 21 06/24/18 19:43 82 18 Room Air 21 06/24/18 19:43 Room Air 21 06/24/18 19:43 95 Room Air 21 06/24/18 19:43 82 18 95 Room Air 21 06/24/18 17:34 128/74 06/24/18 16:00 97.0 70 20 128/74 (92) 95 97.0 06/24/18 16:00 87 06/24/18 13:53 96 Room Air 64 06/24/18 13:53 Room Air 21 06/24/18 12:00 97.3 67 18 121/72 (88) 96 97.3 06/24/18 12:00 61 06/24/18 11:25 139/67 Intake and Output 06/24/18 06/25/18 19:00 07:00 Output Total 350 ml 400 ml Balance -350 ml -400 ml Output Urine Total 350 ml 400 ml # Bowel Movements 1 Height (Feet): 6 Height (Inches): 5.00 Weight (Pounds): 180 General Appearance: no apparent distress Objective no change Christopher Coronado MD Jun 25, 2018 10:29
--- NOTE | 2018-06-25 11:08 | General Progress Note ---
Assessment/Plan Status: stable Assessment/Plan Dementia with behavioral dist psychotic d/o -Ativan 1mg iv q4hr prn agitation -the pt lacks capacity to make decisions. soft restraints prn the pt son gave consent to pace maker the pt may not refuse any tests or meds as he lacks capacity to make decisions d/w daughter. Subjective Date patient seen: Jun 25, 2018 Neurologic/Psychiatric: Reports: anxiety Allergies: Coded Allergies: No Known Allergies (Unverified , 08/27/17) Subjective the pt is confused daughter and coronary care unit nurse in room next to bed. Objective Last 24 Hour Vital Signs Date Time Temp Pulse Resp B/P (MAP) Pulse Ox O2 Delivery O2 Flow Rate FiO2 06/25/18 09:00 Room Air 06/25/18 08:00 98.9 84 18 109/67 (81) 95 98.9 06/25/18 07:55 86 18 98 Room Air 21 06/25/18 07:45 Room Air 21 06/25/18 07:45 89 18 96 Room Air 21 06/25/18 07:45 96 Room Air 21 06/25/18 06:00 125/65 06/25/18 04:00 97.5 80 19 125/65 (85) 96 97.5 06/25/18 04:00 78 06/25/18 00:49 86 18 97 Room Air 21 06/25/18 00:39 82 18 93 Room Air 21 06/25/18 00:00 90 06/25/18 00:00 123/74 06/25/18 00:00 97.2 89 18 123/74 (90) 96 97.2 06/24/18 23:41 Room Air 21 06/24/18 21:00 Room Air 06/24/18 20:00 90 06/24/18 20:00 98.1 83 17 126/72 (90) 96 98.1 06/24/18 19:53 82 18 95 Room Air 21 06/24/18 19:43 82 18 Room Air 21 06/24/18 19:43 Room Air 21 06/24/18 19:43 95 Room Air 21 06/24/18 19:43 82 18 95 Room Air 21 06/24/18 17:34 128/74 06/24/18 16:00 97.0 70 20 128/74 (92) 95 97.0 06/24/18 16:00 87 10/15/18 13:53 96 Room Air 64 06/24/18 13:53 Room Air 21 06/24/18 12:00 97.3 67 18 121/72 (88) 96 97.3 06/24/18 12:00 61 06/24/18 11:25 139/67 Intake and Output 06/24/18 06/25/18 19:00 07:00 Output Total 350 ml 400 ml Balance -350 ml -400 ml Output Urine Total 350 ml 400 ml # Bowel Movements 1 Height (Feet): 6 Height (Inches): 5.00 Weight (Pounds): 180 General Appearance: alert, confused, mild distress Neurologic: responsive, disoriented, depressed affect Vilma Medina MD Jun 25, 2018 11:08
--- NOTE | 2018-06-25 11:26 | Pulmonology Progress Note ---
Assessment/Plan Assessment/Plan ASSESSMENT: The patient is an 83-year-old male with metastatic prostate cancer with known osseous metastases, admitted with abdominal pain, initially concerning for UTI, now with 2-3 days of increased coughing. He does not appear infected from pulmonary standpoint. He does have history of extensive tobacco use, though has never been formally diagnosed with COPD. I suspect he has a component of bronchitis plus or minus smoker's cough. PROBLEM LIST: 1. Cough and congestion, likely secondary to bronchitis and smoker's cough. 2. Extensive former smoker without stated history of COPD. 3. Bibasilar atelectasis. 4. Metastatic prostate cancer, status post prostatectomy, who refused chemoradiation with known osseous metastases. 5. Anemia. 6. Bradycardia, AV block. 7. Abdominal pain. 8. Known osseous mets TREATMENT PLAN: 1. Optimize pulmonary hygiene/mobilize as tolerated. 2. Ubjbs-phy-irfsb and p.r.n. bronchodilators. 3. Mucinex and p.r.n. Robitussin. 4. Observe off antibiotics and monitor for signs of a respiratory infection. 5. F/U METAL FILER recs, aspiration precautions, F/U VSS 6. Follow up tax credit leasing consultant records 7. DVT prophylaxis, SCDs. 8. D/W daughter, hold off on further imaging given overall GOC and known mets 9. DNR/DNI, continue to address goals of care, considering hospice Subjective Allergies: Coded Allergies: No Known Allergies (Unverified , 08/27/17) Subjective AFVSS, stable on RA + cough, no SOB, no F/C METAL FILER eval noted, needs VSS CXR with rib lesion, known met Objective Last 24 Hour Vital Signs Date Time Temp Pulse Resp B/P (MAP) Pulse Ox O2 Delivery O2 Flow Rate FiO2 06/25/18 09:00 Room Air 06/25/18 08:00 98.9 84 18 109/67 (81) 95 98.9 06/25/18 07:55 86 18 98 Room Air 21 06/25/18 07:45 Room Air 21 06/25/18 07:45 89 18 96 Room Air 21 06/25/18 07:45 96 Room Air 21 06/25/18 06:00 125/65 06/25/18 04:00 97.5 80 19 125/65 (85) 96 97.5 06/25/18 04:00 78 06/25/18 00:49 86 18 97 Room Air 21 06/25/18 00:39 82 18 93 Room Air 21 06/25/18 00:00 90 06/25/18 00:00 123/74 06/25/18 00:00 97.2 89 18 123/74 (90) 96 97.2 06/24/18 23:41 Room Air 21 06/24/18 21:00 Room Air 06/24/18 20:00 90 06/24/18 20:00 98.1 83 17 126/72 (90) 96 98.1 06/24/18 19:53 82 18 95 Room Air 21 06/24/18 19:43 82 18 Room Air 21 06/24/18 19:43 Room Air 21 06/24/18 19:43 95 Room Air 21 06/24/18 19:43 82 18 95 Room Air 21 06/24/18 17:34 128/74 06/24/18 16:00 97.0 70 20 128/74 (92) 95 97.0 06/24/18 16:00 87 06/24/18 13:53 96 Room Air 64 06/24/18 13:53 Room Air 21 06/24/18 12:00 97.3 67 18 121/72 (88) 96 97.3 06/24/18 12:00 61 06/24/18 11:25 139/67 Intake and Output 06/24/18 06/25/18 19:00 07:00 Output Total 350 ml 400 ml Balance -350 ml -400 ml Output Urine Total 350 ml 400 ml # Bowel Movements 1 General Appearance: no acute distress, cachetic HEENT: normocephalic, atraumatic, anicteric Respiratory/Chest: chest wall non-tender, rhonchi Cardiovascular: normal peripheral pulses, normal rate, regular rhythm Abdomen: normal bowel sounds, soft, non tender, no organomegaly, non distended Extremities: no cyanosis, no clubbing, no edema Current Medications Medications (Trade) Dose Ordered Sig/Pancho Route PRN Reason Start Time Stop Time Status Last Admin Dose Admin Acetaminophen (Tylenol) 500 mg Q4H PRN ORAL Mild Pain/Temp > 100.5 06/18/18 23:30 07/18/18 23:29 06/22/18 13:51 Albuterol/ Ipratropium (Albuterol/ Ipratropium) 3 ml Q6HRT HHN 06/24/18 13:00 06/29/18 12:59 06/25/18 07:53 Bisacodyl (Dulcolax) 10 mg DAILY ORAL 06/22/18 09:00 07/22/18 08:59 06/22/18 09:35 Docusate Sodium (Colace) 100 mg THREE TIMES A DAY ORAL 06/19/18 13:00 07/19/18 12:59 06/23/18 17:46 Guaifenesin (Mucinex ER) 600 mg TWICE A DAY ORAL 06/24/18 18:00 07/24/18 17:59 06/25/18 08:58 Guaifenesin (Robitussin) 100 mg Q4H PRN ORAL For Cough 06/24/18 13:56 07/24/18 13:55 Hydralazine HCl (Apresoline) 10 mg Q6HR ORAL 06/21/18 18:00 07/21/18 17:59 06/25/18 06:00 Iopamidol (Isovue-300 100ml) 100 ml NOW PRN INJ Radiology Procedure 06/18/18 17:30 Lorazepam (Ativan 2mg/ml 1ml) 1 mg Q6H PRN IV For Anxiety 06/19/18 12:15 06/26/18 12:14 06/24/18 01:37 Magnesium Hydroxide (Mom) 30 ml Q4H PRN ORAL Constipation 06/21/18 11:00 07/21/18 10:59 06/22/18 01:06 Morphine Sulfate (Morphine Sulfate) 2 mg Q4H PRN IVP Severe Breakthru Pain (>7) 06/19/18 15:42 06/26/18 15:41 06/24/18 04:15 Pantoprazole (Protonix) 40 mg DAILY ORAL 06/19/18 10:15 07/19/18 10:14 06/25/18 08:58 Polyethylene Glycol (Miralax) 17 gm DAILY ORAL 06/22/18 09:00 07/22/18 08:59 06/22/18 09:35 Sennosides (Senokot) 1 tab DAILY PRN ORAL Constipation 06/21/18 11:00 07/21/18 10:59 Neo Mei MD Jun 25, 2018 11:26
--- NOTE | 2018-06-25 11:59 | GI Progress Note ---
Assessment/Plan Problems: (1) Abdominal pain ICD Codes: R10.9 - Unspecified abdominal pain SNOMED: 23359851 (2) Anemia ICD Codes: D64.9 - Anemia, unspecified SNOMED: 711999967 (3) Constipation ICD Codes: K59.00 - Constipation, unspecified SNOMED: 90678765 Status: unchanged Status Narrative Discussed with Dr. Joel. Assessment/Plan Prostate CA s/p prostatectomy with osseous metastases video swallow today >> noted with trace aspiration PEG if family agrees fu oncology recs supportive care / symptomatic treatment pain mgmt zofran prn monitor H&H, prn transfusions bowel regime ppi fu labs hospice care The patient was seen and examined at bedside and all new and available data was reviewed in the patients chart. I agree with the above findings, impression and plan. (Patient seen earlier today. Signature stamp does not reflect patient encounter time.). - Rush Joel MD Subjective Subjective generalized pain Objective Last 24 Hour Vital Signs Date Time Temp Pulse Resp B/P (MAP) Pulse Ox O2 Delivery O2 Flow Rate FiO2 06/25/18 09:00 Room Air 06/25/18 08:00 98.9 84 18 109/67 (81) 95 98.9 06/25/18 07:55 86 18 98 Room Air 21 06/25/18 07:45 Room Air 21 06/25/18 07:45 89 18 96 Room Air 21 06/25/18 07:45 96 Room Air 21 06/25/18 06:00 125/65 06/25/18 04:00 97.5 80 19 125/65 (85) 96 97.5 06/25/18 04:00 78 06/25/18 00:49 86 18 97 Room Air 21 06/25/18 00:39 82 18 93 Room Air 21 06/25/18 00:00 90 06/25/18 00:00 123/74 06/25/18 00:00 97.2 89 18 123/74 (90) 96 97.2 06/24/18 23:41 Room Air 21 06/24/18 21:00 Room Air 06/24/18 20:00 90 06/24/18 20:00 98.1 83 17 126/72 (90) 96 98.1 06/24/18 19:53 82 18 95 Room Air 21 06/24/18 19:43 82 18 Room Air 21 06/24/18 19:43 Room Air 21 06/24/18 19:43 95 Room Air 21 06/24/18 19:43 82 18 95 Room Air 21 06/24/18 17:34 128/74 06/24/18 16:00 97.0 70 20 128/74 (92) 95 97.0 06/24/18 16:00 87 06/24/18 13:53 96 Room Air 64 06/24/18 13:53 Room Air 21 06/24/18 12:00 97.3 67 18 121/72 (88) 96 97.3 06/24/18 12:00 61 Intake and Output 06/24/18 06/25/18 19:00 07:00 Output Total 350 ml 400 ml Balance -350 ml -400 ml Output Urine Total 350 ml 400 ml # Bowel Movements 1 Height (Feet): 6 Height (Inches): 5.00 Weight (Pounds): 180 General Appearance: WD/WN, no apparent distress, alert, thin Cardiovascular: normal rate Respiratory/Chest: normal breath sounds, no respiratory distress Abdominal Exam: normal bowel sounds, non tender, soft Extremities: non-tender Kristi Hernandez [employer] Jun 25, 2018 11:59
[2018-06-25 12:00] VITALS: BP 145/85
--- NOTE | 2018-06-25 12:04 | Infectious Diseases Prog Note ---
Assessment/Plan Assessment/Plan A; Cystitis treated Metastatic prostatic cancer Bradycardia AV block Dementia P; observe off antibiotic Case was D/W daughter Patient family want hospice Subjective ROS Limited/Unobtainable: Yes Respiratory: Reports: productive cough Musculoskeletal: Reports: pain, other - controlled Allergies: Coded Allergies: No Known Allergies (Unverified , 08/27/17) Objective Vital Signs Last 24 Hour Vital Signs Date Time Temp Pulse Resp B/P (MAP) Pulse Ox O2 Delivery O2 Flow Rate FiO2 06/25/18 09:00 Room Air 06/25/18 08:00 98.9 84 18 109/67 (81) 95 98.9 06/25/18 07:55 86 18 98 Room Air 21 06/25/18 07:45 Room Air 21 06/25/18 07:45 89 18 96 Room Air 21 06/25/18 07:45 96 Room Air 21 06/25/18 06:00 125/65 06/25/18 04:00 97.5 80 19 125/65 (85) 96 97.5 06/25/18 04:00 78 06/25/18 00:49 86 18 97 Room Air 21 06/25/18 00:39 82 18 93 Room Air 21 06/25/18 00:00 90 06/25/18 00:00 123/74 06/25/18 00:00 97.2 89 18 123/74 (90) 96 97.2 06/24/18 23:41 Room Air 21 06/24/18 21:00 Room Air 06/24/18 20:00 90 06/24/18 20:00 98.1 83 17 126/72 (90) 96 98.1 06/24/18 19:53 82 18 95 Room Air 21 06/24/18 19:43 82 18 Room Air 21 06/24/18 19:43 Room Air 21 06/24/18 19:43 95 Room Air 21 06/24/18 19:43 82 18 95 Room Air 21 06/24/18 17:34 128/74 06/24/18 16:00 97.0 70 20 128/74 (92) 95 97.0 06/24/18 16:00 87 06/24/18 13:53 96 Room Air 64 06/24/18 13:53 Room Air 21 Height (Feet): 6 Height (Inches): 5.00 Weight (Pounds): 180 General Appearance: no acute distress HEENT: mucous membranes moist Respiratory/Chest: lungs clear Cardiovascular: normal rate Abdomen: soft, non tender Extremities: no edema Neurologic/Psychiatric: alert, responsive Current Medications Medications (Trade) Dose Ordered Sig/Pancho Route PRN Reason Start Time Stop Time Status Last Admin Dose Admin Acetaminophen (Tylenol) 500 mg Q4H PRN ORAL Mild Pain/Temp > 100.5 06/18/18 23:30 07/18/18 23:29 06/22/18 13:51 Albuterol/ Ipratropium (Albuterol/ Ipratropium) 3 ml Q6HRT HHN 06/24/18 13:00 06/29/18 12:59 06/25/18 07:53 Bisacodyl (Dulcolax) 10 mg DAILY ORAL 06/22/18 09:00 07/22/18 08:59 06/22/18 09:35 Docusate Sodium (Colace) 100 mg THREE TIMES A DAY ORAL 06/19/18 13:00 07/19/18 12:59 06/23/18 17:46 Guaifenesin (Mucinex ER) 600 mg TWICE A DAY ORAL 06/24/18 18:00 07/24/18 17:59 06/25/18 08:58 Guaifenesin (Robitussin) 100 mg Q4H PRN ORAL For Cough 06/24/18 13:56 07/24/18 13:55 Hydralazine HCl (Apresoline) 10 mg Q6HR ORAL 06/21/18 18:00 07/21/18 17:59 06/25/18 06:00 Iopamidol (Isovue-300 100ml) 100 ml NOW PRN INJ Radiology Procedure 06/18/18 17:30 Lorazepam (Ativan 2mg/ml 1ml) 1 mg Q6H PRN IV For Anxiety 06/19/18 12:15 06/26/18 12:14 06/24/18 01:37 Magnesium Hydroxide (Mom) 30 ml Q4H PRN ORAL Constipation 06/21/18 11:00 07/21/18 10:59 06/22/18 01:06 Morphine Sulfate (Morphine Sulfate) 2 mg Q4H PRN IVP Severe Breakthru Pain (>7) 06/19/18 15:42 06/26/18 15:41 06/24/18 04:15 Pantoprazole (Protonix) 40 mg DAILY ORAL 06/19/18 10:15 07/19/18 10:14 06/25/18 08:58 Polyethylene Glycol (Miralax) 17 gm DAILY ORAL 06/22/18 09:00 07/22/18 08:59 06/22/18 09:35 Sennosides (Senokot) 1 tab DAILY PRN ORAL Constipation 06/21/18 11:00 07/21/18 10:59 Mario Daigle MD Jun 25, 2018 12:04
--- NOTE | 2018-06-25 15:53 | Cardiac Electrophysiology PN ---
Assessment/Plan Assessment/Plan 1. Bradycardia with high-grade AV block and 2:1 block off any AV feliciano blocking agents. The patient is now DNR and Family refusing pacer 2. Hypotension. Off BP meds ok 2. Metastatic prostate cancer, status post prostatectomy in August. 3. Abdominal pain under evaluation by Dr. Joel. 4. Dementia. DW RN DC tele Subjective Subjective Family refused swallow eval. Bradycardic but now is DNR. Objective Last 24 Hour Vital Signs Date Time Temp Pulse Resp B/P (MAP) Pulse Ox O2 Delivery O2 Flow Rate FiO2 06/25/18 13:31 145/85 06/25/18 13:05 80 18 98 Room Air 21 06/25/18 12:55 80 16 95 Room Air 21 06/25/18 12:55 21 06/25/18 12:00 97.5 85 18 145/85 (105) 95 97.5 06/25/18 12:00 85 06/25/18 09:00 Room Air 06/25/18 08:00 91 06/25/18 08:00 98.9 84 18 109/67 (81) 95 98.9 06/25/18 07:55 86 18 98 Room Air 21 06/25/18 07:45 Room Air 21 06/25/18 07:45 89 18 96 Room Air 21 06/25/18 07:45 96 Room Air 21 06/25/18 06:00 125/65 06/25/18 04:00 97.5 80 19 125/65 (85) 96 97.5 06/25/18 04:00 78 06/25/18 00:49 86 18 97 Room Air 21 06/25/18 00:39 82 18 93 Room Air 21 06/25/18 00:00 90 06/25/18 00:00 123/74 06/25/18 00:00 97.2 89 18 123/74 (90) 96 97.2 06/24/18 23:41 Room Air 21 06/24/18 21:00 Room Air 06/24/18 20:00 90 06/24/18 20:00 98.1 83 17 126/72 (90) 96 98.1 06/24/18 19:53 82 18 95 Room Air 21 06/24/18 19:43 82 18 Room Air 21 06/24/18 19:43 Room Air 21 06/24/18 19:43 95 Room Air 21 06/24/18 19:43 82 18 95 Room Air 21 06/24/18 17:34 128/74 06/24/18 16:00 97.0 70 20 128/74 (92) 95 97.0 06/24/18 16:00 87 Intake and Output 06/24/18 06/25/18 19:00 07:00 Output Total 350 ml 400 ml Balance -350 ml -400 ml Output Urine Total 350 ml 400 ml # Bowel Movements 1 Objective HEAD AND NECK: No JVD. LUNGS: Clear. CARDIOVASCULAR: Bradycardic S1-S2 with no gallop or murmur. ABDOMEN: Soft. EXTREMITIES: 1+ pitting edema. Miko Reed MD Jun 25, 2018 15:53
[2018-06-25 16:00] VITALS: BP 111/58
--- NOTE | 2018-06-25 16:46 | General Progress Note ---
Assessment/Plan Status: stable Assessment/Plan # Prostate cancer with extensive metastases -- extensive sclerotic lesions throughout the pelvic bones, spine, ribs, and visualized sternum, compatible with osseous metastases, significantly worsened compared to prior exam. PSA 531 , likely will be further increased as he has not received any treatment --> received prostatectomy in 08/2017 --> again have recommended simple antiandrogen therapy (lupron SQ injection and casodex a PO medication) that will bring his PSA to <5 for most cases >95% of patients --> talked to son 06/20/18 re prognosis, can be significantly improved if treated prostate cancer, but at this time patient continues to decline --> continue to application counselor daily as best as possible --> onco and uro outpatient f/u --> Dr. Gonzalez outpatient f/u --> family wants comfort care # Anemia due to malignancy --> likely worse given progression of disease --> Hgb goal above 7 --> Currently stable. # Bradycardic, second-degree AV block, Mobitz type I --> appreciate recs by Dr. Reed # UTI on abx as per pcp --> on abx # KYMBERLY consider fluids as needed Greatly appreciate consultation! Subjective Date patient seen: Jun 25, 2018 Hematologic/Lymphatic: Reports: anemia Allergies: Coded Allergies: No Known Allergies (Unverified , 08/27/17) All Systems: reviewed and negative except above Subjective No acute events. H/H stable. Family refused video swallow. DC planning. Objective Last 24 Hour Vital Signs Date Time Temp Pulse Resp B/P (MAP) Pulse Ox O2 Delivery O2 Flow Rate FiO2 06/25/18 13:31 145/85 06/25/18 13:05 80 18 98 Room Air 21 06/25/18 12:55 80 16 95 Room Air 21 06/25/18 12:55 21 06/25/18 12:00 97.5 85 18 145/85 (105) 95 97.5 06/25/18 12:00 85 06/25/18 09:00 Room Air 06/25/18 08:00 91 06/25/18 08:00 98.9 84 18 109/67 (81) 95 98.9 06/25/18 07:55 86 18 98 Room Air 06/25/18 07:45 Room Air 21 06/25/18 07:45 89 18 96 Room Air 21 06/25/18 07:45 96 Room Air 21 06/25/18 06:00 125/65 06/25/18 04:00 97.5 80 19 125/65 (85) 96 97.5 06/25/18 04:00 78 06/25/18 00:49 86 18 97 Room Air 21 06/25/18 00:39 82 18 93 Room Air 21 06/25/18 00:00 90 06/25/18 00:00 123/74 06/25/18 00:00 97.2 89 18 123/74 (90) 96 97.2 06/24/18 23:41 Room Air 21 06/24/18 21:00 Room Air 06/24/18 20:00 90 06/24/18 20:00 98.1 83 17 126/72 (90) 96 98.1 06/24/18 19:53 82 18 95 Room Air 21 06/24/18 19:43 82 18 Room Air 21 06/24/18 19:43 Room Air 21 06/24/18 19:43 95 Room Air 21 06/24/18 19:43 82 18 95 Room Air 21 06/24/18 17:34 128/74 Intake and Output 06/24/18 06/25/18 19:00 07:00 Output Total 350 ml 400 ml Balance -350 ml -400 ml Output Urine Total 350 ml 400 ml # Bowel Movements 1 Height (Feet): 6 Height (Inches): 5.00 Weight (Pounds): 180 General Appearance: no apparent distress EENT: PERRL/EOMI Neck: normal alignment Cardiovascular: normal peripheral pulses Respiratory/Chest: no respiratory distress Abdomen: soft Gerard Hernandez MD Jun 25, 2018 16:46
[2018-06-25 20:00] VITALS: BP 140/65
--- NOTE | 2018-06-25 22:20 | General Progress Note ---
Assessment/Plan Problem List: (1) Anemia ICD Codes: D64.9 - Anemia, unspecified SNOMED: 235616297 (2) Abdominal pain ICD Codes: R10.9 - Unspecified abdominal pain SNOMED: 11066567 (3) Hematuria ICD Codes: R31.9 - Hematuria, unspecified SNOMED: 16157722 (4) Bradycardia ICD Codes: R00.1 - Bradycardia, unspecified SNOMED: 45532869 (5) Renal insufficiency ICD Codes: N28.9 - Disorder of kidney and ureter, unspecified SNOMED: 642280939, 269403927 (6) UTI (urinary tract infection) ICD Codes: N39.0 - Urinary tract infection, site not specified SNOMED: 02363585 (7) Abnormal urogenital findings ICD Codes: R89.9 - Unspecified abnormal finding in specimens from other organs , systems and tissues SNOMED: 973411406, 972318944 Status: progressing Assessment/Plan cxr shows possible mets to ribs r/o mets prostate ca i have told family that he is not candidate for assisted living and needs to be placed in snf dr zepeda spoke w family re findings s/p prostate cancer Subjective ROS Limited/Unobtainable: Yes Allergies: Coded Allergies: No Known Allergies (Unverified , 08/27/17) Objective Last 24 Hour Vital Signs Date Time Temp Pulse Resp B/P (MAP) Pulse Ox O2 Delivery O2 Flow Rate FiO2 06/25/18 19:59 92 18 97 Room Air 21 06/25/18 19:58 86 18 95 Room Air 21 06/25/18 19:58 Room Air 21 06/25/18 19:58 95 Room Air 21 06/25/18 17:45 111/58 06/25/18 16:00 98.4 95 20 111/58 (75) 95 98.4 06/25/18 13:31 145/85 06/25/18 13:05 80 18 98 Room Air 21 06/25/18 12:55 80 16 95 Room Air 21 06/25/18 12:55 21 06/25/18 12:00 97.5 85 18 145/85 (105) 95 97.5 06/25/18 12:00 85 06/25/18 09:00 Room Air 06/25/18 08:00 91 06/25/18 08:00 98.9 84 18 109/67 (81) 95 98.9 06/25/18 07:55 86 18 98 Room Air 21 06/25/18 07:45 Room Air 21 06/25/18 07:45 89 18 96 Room Air 21 06/25/18 07:45 96 Room Air 21 06/25/18 06:00 125/65 06/25/18 04:00 97.5 80 19 125/65 (85) 96 97.5 06/25/18 04:00 78 06/25/18 00:49 86 18 97 Room Air 21 06/25/18 00:39 82 18 93 Room Air 21 06/25/18 00:00 90 06/25/18 00:00 123/74 06/25/18 00:00 97.2 89 18 123/74 (90) 96 97.2 06/24/18 23:41 Room Air 21 Intake and Output 06/24/18 06/25/18 19:00 07:00 Output Total 350 ml 400 ml Balance -350 ml -400 ml Output Urine Total 350 ml 400 ml # Bowel Movements 1 Height (Feet): 6 Height (Inches): 5.00 Weight (Pounds): 180 Yury Murray MD Jun 25, 2018 22:20
[2018-06-25] MEDS: Acetaminophen 500mg (ES) tab ORAL PRN (22:32)
[2018-06-25] MEDS ORDERED: Milk of Magnesia 30ml Ud ORAL PRN (23:00)
[2018-06-26] VITALS: BP 109/67
[2018-06-26] MEDS ORDERED: LORazepam Inj 2mg/ml 1ml IV PRN ×2 (00:15→11:39)
[2018-06-26] MEDS: HydrALAZINE 10mg Tab ORAL SCH ×2 (00:19→05:20)
[2018-06-26] MEDS: Morphine Sulfate 2mg/ml Inj IVP PRN ×2 (00:55→08:41)
[2018-06-26] MEDS: Albuterol/Ipratropium 3ml neb HHN SCH ×4 (01:27→19:51)
[2018-06-26] MEDS ORDERED: guaiFENesin 100mg/5ml Liq ud ORAL PRN (02:00)
[2018-06-26 04:00] VITALS: BP 115/70
[2018-06-26 08:00] VITALS: BP 118/69
[2018-06-26] MEDS: Docusate 100mg cap ORAL SCH ×3 (08:36→17:39)
[2018-06-26] MEDS: Bisacodyl EC 5mg tab ORAL SCH (08:36)
[2018-06-26] MEDS ORDERED: Sennosides 8.6mg ORAL PRN (09:00)
[2018-06-26] MEDS ORDERED: Miralax 17gm pkt ORAL SCH (09:00)
[2018-06-26] MEDS ORDERED: guaiFENesin ER 600mg tab ORAL SCH (09:00)
[2018-06-26] MEDS ORDERED: Glycopyrrolate 0.2mg/ml 1ml Vial IV PRN (11:30)
--- NOTE | 2018-06-26 11:32 | Pulmonology Progress Note ---
Assessment/Plan Assessment/Plan ASSESSMENT: The patient is an 83-year-old male with metastatic prostate cancer with known osseous metastases, admitted with abdominal pain, initially concerning for UTI, now with 2-3 days of increased coughing. He does not appear infected from pulmonary standpoint. He does have history of extensive tobacco use, though has never been formally diagnosed with COPD. I suspect he has a component of bronchitis plus or minus smoker's cough. PROBLEM LIST: 1. Cough and congestion, likely secondary to bronchitis and smoker's cough. 2. Extensive former smoker without stated history of COPD. 3. Bibasilar atelectasis. 4. Metastatic prostate cancer, status post prostatectomy, who refused chemoradiation with known osseous metastases. 5. Anemia. 6. Bradycardia, AV block. 7. Abdominal pain. 8. Known osseous mets TREATMENT PLAN: Transition to COMFORT MEASURES ONLY D/C ALL NON COMFORT BASED MEDS CONTINUE O2 for COMFORT HHN's PRN MSO4, ATIVAN and ROBINUL DNAR/DNI Subjective Allergies: Coded Allergies: No Known Allergies (Unverified , 08/27/17) Subjective D/W daughter, son and daughter in law Plan for transition to BAIT DIGGER and hospice + cough, no SOB, no wheezing, obtunded Objective Last 24 Hour Vital Signs Date Time Temp Pulse Resp B/P (MAP) Pulse Ox O2 Delivery O2 Flow Rate FiO2 06/26/18 09:00 Room Air 06/26/18 08:25 83 18 96 Room Air 06/26/18 08:22 78 18 95 Room Air 06/26/18 08:21 96 Room Air 06/26/18 08:21 Room Air 21 06/26/18 08:00 97.6 80 19 118/69 (85) 97 97.6 06/26/18 05:20 115/70 06/26/18 04:00 97.2 83 20 115/70 (85) 96 97.2 06/26/18 01:27 88 18 96 Room Air 21 06/26/18 01:18 81 18 94 Room Air 21 06/26/18 00:19 109/67 06/26/18 00:00 98.3 93 20 109/67 (81) 95 98.3 06/25/18 21:00 Room Air 06/25/18 20:00 97.6 86 20 140/65 (90) 100 97.6 06/25/18 19:59 92 18 97 Room Air 21 06/25/18 19:58 86 18 95 Room Air 21 06/25/18 19:58 Room Air 21 06/25/18 19:58 95 Room Air 21 06/25/18 17:45 111/58 06/25/18 16:00 98.4 95 20 111/58 (75) 95 98.4 06/25/18 13:31 145/85 06/25/18 13:05 80 18 98 Room Air 21 06/25/18 12:55 80 16 95 Room Air 21 06/25/18 12:55 21 06/25/18 12:00 97.5 85 18 145/85 (105) 95 97.5 06/25/18 12:00 85 Intake and Output 06/25/18 06/26/18 19:00 07:00 Output Total 200 ml 400 ml Balance -200 ml -400 ml Output Urine Total 200 ml 400 ml # Bowel Movements 2 General Appearance: cachetic, other - obtunded HEENT: normocephalic, atraumatic, anicteric, mucous membranes moist Respiratory/Chest: rhonchi Cardiovascular: normal peripheral pulses, normal rate, regular rhythm Abdomen: normal bowel sounds, soft, non tender, no organomegaly, non distended , no mass Extremities: no cyanosis, no clubbing, no edema Current Medications Medications (Trade) Dose Ordered Sig/Pancho Route PRN Reason Start Time Stop Time Status Last Admin Dose Admin Acetaminophen (Tylenol) 500 mg Q4H PRN ORAL Mild Pain/Temp > 100.5 06/25/18 23:30 07/18/18 23:29 Albuterol/ Ipratropium (Albuterol/ Ipratropium) 3 ml Q6HRT HHN 06/26/18 01:00 06/29/18 12:59 06/26/18 08:20 Bisacodyl (Dulcolax) 10 mg DAILY ORAL 06/26/18 09:00 07/22/18 08:59 06/26/18 08:36 Docusate Sodium (Colace) 100 mg THREE TIMES A DAY ORAL 06/26/18 09:00 07/19/18 12:59 06/26/18 08:36 Guaifenesin (Mucinex ER) 600 mg TWICE A DAY ORAL 06/26/18 09:00 07/24/18 17:59 06/26/18 08:36 Guaifenesin (Robitussin) 100 mg Q4H PRN ORAL For Cough 06/26/18 02:00 07/24/18 13:55 Hydralazine HCl (Apresoline) 10 mg Q6HR ORAL 06/26/18 00:00 07/21/18 17:59 06/26/18 05:20 Lorazepam (Ativan 2mg/ml 1ml) 1 mg Q6H PRN IV For Anxiety 06/26/18 00:15 06/26/18 12:14 Magnesium Hydroxide (Mom) 30 ml Q4H PRN ORAL Constipation 06/25/18 23:00 07/21/18 10:59 Morphine Sulfate (Morphine Sulfate) 2 mg Q4H PRN IVP Severe Breakthru Pain (>7) 06/25/18 23:45 06/26/18 15:41 06/26/18 08:41 Pantoprazole (Protonix) 40 mg DAILY ORAL 06/26/18 09:00 07/19/18 10:14 06/26/18 08:36 Polyethylene Glycol (Miralax) 17 gm DAILY ORAL 06/26/18 09:00 07/22/18 08:59 06/26/18 08:36 Sennosides (Senokot) 1 tab DAILY PRN ORAL Constipation 06/26/18 09:00 07/21/18 10:59 Neo Mei MD Jun 26, 2018 11:32
[2018-06-26] MEDS ORDERED: Morphine Sulfate 2mg/ml Inj IVP PRN (11:40)
--- NOTE | 2018-06-26 11:48 | GI Progress Note ---
Assessment/Plan Problems: (1) Abdominal pain ICD Codes: R10.9 - Unspecified abdominal pain SNOMED: 73816124 (2) Anemia ICD Codes: D64.9 - Anemia, unspecified SNOMED: 478634774 (3) Constipation ICD Codes: K59.00 - Constipation, unspecified SNOMED: 71736059 Status: unchanged Status Narrative Discussed with Dr. Joel. Assessment/Plan Prostate CA s/p prostatectomy with osseous metastases video swallow today >> noted with trace aspiration PEG if family agrees, on regular diet fu oncology recs supportive care / symptomatic treatment pain mgmt zofran prn monitor H&H, prn transfusions bowel regime ppi fu labs recommend hospice care The patient was seen and examined at bedside and all new and available data was reviewed in the patients chart. I agree with the above findings, impression and plan. (Patient seen earlier today. Signature stamp does not reflect patient encounter time.). - Rush Joel MD Subjective Subjective generalized pain Objective Last 24 Hour Vital Signs Date Time Temp Pulse Resp B/P (MAP) Pulse Ox O2 Delivery O2 Flow Rate FiO2 06/26/18 09:00 Room Air 06/26/18 08:25 83 18 96 Room Air 21 06/26/18 08:22 78 18 95 Room Air 06/26/18 08:21 96 Room Air 21 06/26/18 08:21 Room Air 21 06/26/18 08:00 97.6 80 19 118/69 (85) 97 97.6 06/26/18 05:20 115/70 06/26/18 04:00 97.2 83 20 115/70 (85) 96 97.2 06/26/18 01:27 88 18 96 Room Air 21 06/26/18 01:18 81 18 94 Room Air 21 06/26/18 00:19 109/67 06/26/18 00:00 98.3 93 20 109/67 (81) 95 98.3 06/25/18 21:00 Room Air 06/25/18 20:00 97.6 86 20 140/65 (90) 100 97.6 06/25/18 19:59 92 18 97 Room Air 21 06/25/18 19:58 86 18 95 Room Air 21 06/25/18 19:58 Room Air 21 06/25/18 19:58 95 Room Air 21 06/25/18 17:45 111/58 06/25/18 16:00 98.4 95 20 111/58 (75) 95 98.4 06/25/18 13:31 145/85 06/25/18 13:05 80 18 98 Room Air 21 06/25/18 12:55 80 16 95 Room Air 21 06/25/18 12:55 21 06/25/18 12:00 97.5 85 18 145/85 (105) 95 97.5 06/25/18 12:00 85 Intake and Output 06/25/18 06/26/18 19:00 07:00 Output Total 200 ml 400 ml Balance -200 ml -400 ml Output Urine Total 200 ml 400 ml # Bowel Movements 2 Height (Feet): 6 Height (Inches): 5.00 Weight (Pounds): 165 General Appearance: WD/WN, no apparent distress, alert Cardiovascular: normal rate Respiratory/Chest: normal breath sounds, no respiratory distress Abdominal Exam: normal bowel sounds, non tender, soft Extremities: normal range of motion, non-tender Kristi Hernandez RADIO ELECTRONICS TECHNICIAN Jun 26, 2018 11:48
[2018-06-26 12:00] VITALS: BP 112/70
--- NOTE | 2018-06-26 12:38 | General Progress Note ---
Assessment/Plan Problem List: (1) Anemia ICD Codes: D64.9 - Anemia, unspecified SNOMED: 917507449 (2) Abdominal pain ICD Codes: R10.9 - Unspecified abdominal pain SNOMED: 07004114 (3) Hematuria ICD Codes: R31.9 - Hematuria, unspecified SNOMED: 51055665 (4) Bradycardia ICD Codes: R00.1 - Bradycardia, unspecified SNOMED: 55080484 (5) Renal insufficiency ICD Codes: N28.9 - Disorder of kidney and ureter, unspecified SNOMED: 768493726, 614244586 (6) UTI (urinary tract infection) ICD Codes: N39.0 - Urinary tract infection, site not specified SNOMED: 20725253 (7) Abnormal urogenital findings ICD Codes: R89.9 - Unspecified abnormal finding in specimens from other organs , systems and tissues SNOMED: 926892723, 010531624 Assessment/Plan cxr shows possible mets to ribs r/o mets prostate ca i have told family that he is not candidate for assisted living and needs to be placed in snf i spoke at length w jefferson ahumada at the bedside re plan of care and placement and again emphasized pt is not a candidate for assisted living and best option is snf w hospice has advanced prostatic ca w mets family wants comfort care and hospice Subjective ROS Limited/Unobtainable: Yes Allergies: Coded Allergies: No Known Allergies (Unverified , 08/27/17) Objective Last 24 Hour Vital Signs Date Time Temp Pulse Resp B/P (MAP) Pulse Ox O2 Delivery O2 Flow Rate FiO2 06/26/18 09:00 Room Air 06/26/18 08:25 83 18 96 Room Air 06/26/18 08:22 78 18 95 Room Air 21 06/26/18 08:21 96 Room Air 21 06/26/18 08:21 Room Air 21 06/26/18 08:00 97.6 80 19 118/69 (85) 97 97.6 06/26/18 05:20 115/70 06/26/18 04:00 97.2 83 20 115/70 (85) 96 97.2 06/26/18 01:27 88 18 96 Room Air 21 06/26/18 01:18 81 18 94 Room Air 21 06/26/18 00:19 109/67 06/26/18 00:00 98.3 93 20 109/67 (81) 95 98.3 06/25/18 21:00 Room Air 06/25/18 20:00 97.6 86 20 140/65 (90) 100 97.6 06/25/18 19:59 92 18 97 Room Air 21 06/25/18 19:58 86 18 95 Room Air 21 06/25/18 19:58 Room Air 21 06/25/18 19:58 95 Room Air 21 06/25/18 17:45 111/58 06/25/18 16:00 98.4 95 20 111/58 (75) 95 98.4 06/25/18 13:31 145/85 06/25/18 13:05 80 18 98 Room Air 21 06/25/18 12:55 80 16 95 Room Air 21 06/25/18 12:55 21 Intake and Output 06/25/18 06/26/18 19:00 07:00 Output Total 200 ml 400 ml Balance -200 ml -400 ml Output Urine Total 200 ml 400 ml # Bowel Movements 2 Height (Feet): 6 Height (Inches): 5.00 Weight (Pounds): 165 General Appearance: lethargic, confused Yury Murray MD Jun 26, 2018 12:38
--- NOTE | 2018-06-26 13:57 | Infectious Diseases Prog Note ---
Assessment/Plan Assessment/Plan A; Cystitis treated Metastatic prostatic cancer Bradycardia AV block Dementia P; observe off antibiotic Patient's family want hospice Subjective ROS Limited/Unobtainable: Yes Allergies: Coded Allergies: No Known Allergies (Unverified , 08/27/17) Objective Vital Signs Last 24 Hour Vital Signs Date Time Temp Pulse Resp B/P (MAP) Pulse Ox O2 Delivery O2 Flow Rate FiO2 06/26/18 13:30 94 20 97 Room Air 21 06/26/18 13:26 94 20 95 Room Air 21 06/26/18 12:00 97.8 83 19 112/70 (84) 95 97.8 06/26/18 09:00 Room Air 06/26/18 08:25 83 18 96 Room Air 21 06/26/18 08:22 78 18 95 Room Air 21 06/26/18 08:21 96 Room Air 21 06/26/18 08:21 Room Air 21 06/26/18 08:00 97.6 80 19 118/69 (85) 97 97.6 06/26/18 05:20 115/70 06/26/18 04:00 97.2 83 20 115/70 (85) 96 97.2 06/26/18 01:27 88 18 96 Room Air 21 06/26/18 01:18 81 18 94 Room Air 21 06/26/18 00:19 109/67 06/26/18 00:00 98.3 93 20 109/67 (81) 95 98.3 06/25/18 21:00 Room Air 06/25/18 20:00 97.6 86 20 140/65 (90) 100 97.6 06/25/18 19:59 92 18 97 Room Air 21 06/25/18 19:58 86 18 95 Room Air 21 06/25/18 19:58 Room Air 21 06/25/18 19:58 95 Room Air 21 06/25/18 17:45 111/58 06/25/18 16:00 98.4 95 20 111/58 (75) 95 98.4 Height (Feet): 6 Height (Inches): 5.00 Weight (Pounds): 165 General Appearance: no acute distress HEENT: mucous membranes moist Respiratory/Chest: lungs clear Cardiovascular: normal rate Abdomen: soft, non tender Genitourinary: other - Orta catheter Extremities: no edema Neurologic/Psychiatric: alert Current Medications Medications (Trade) Dose Ordered Sig/Pancho Route PRN Reason Start Time Stop Time Status Last Admin Dose Admin Acetaminophen (Tylenol) 500 mg Q4H PRN ORAL Mild Pain/Temp > 100.5 06/25/18 23:30 07/18/18 23:29 Albuterol/ Ipratropium (Albuterol/ Ipratropium) 3 ml Q6HRT HHN 06/26/18 01:00 06/29/18 12:59 06/26/18 13:23 Bisacodyl (Dulcolax) 10 mg DAILY ORAL 06/26/18 09:00 07/22/18 08:59 06/26/18 08:36 Docusate Sodium (Colace) 100 mg THREE TIMES A DAY ORAL 06/26/18 09:00 07/19/18 12:59 06/26/18 08:36 Glycopyrrolate (Robinul) 0.2 mg BIDPRN PRN IV excessive secretions 06/26/18 11:30 07/26/18 11:29 Guaifenesin (Robitussin) 100 mg Q4H PRN ORAL For Cough 06/26/18 02:00 07/24/18 13:55 Lorazepam (Ativan 2mg/ml 1ml) 1 mg Q4H PRN IV For Anxiety 06/26/18 11:39 07/03/18 11:38 Magnesium Hydroxide (Mom) 30 ml Q4H PRN ORAL Constipation 06/25/18 23:00 07/21/18 10:59 Sennosides (Senokot) 1 tab DAILY PRN ORAL Constipation 06/26/18 09:00 07/21/18 10:59 Mario aDigle MD Jun 26, 2018 13:57
--- NOTE | 2018-06-26 14:37 | General Progress Note ---
Assessment/Plan Status: unchanged Assessment/Plan # Prostate cancer with extensive metastases -- extensive sclerotic lesions throughout the pelvic bones, spine, ribs, and visualized sternum, compatible with osseous metastases, significantly worsened compared to prior exam. PSA 531 , likely will be further increased as he has not received any treatment --> received prostatectomy in 08/2017 --> again have recommended simple antiandrogen therapy (lupron SQ injection and casodex a PO medication) that will bring his PSA to <5 for most cases >95% of patients --> talked to son 06/20/18 re prognosis, can be significantly improved if treated prostate cancer, but at this time patient continues to decline --> continue to housing counselor daily as best as possible --> onco and uro outpatient f/u --> Dr. Gonzalez outpatient f/u --> family wants comfort care # Anemia due to malignancy --> likely worse given progression of disease --> Hgb goal above 7 --> Currently stable. # Bradycardic, second-degree AV block, Mobitz type I --> appreciate recs by Dr. Reed # UTI on abx as per pcp --> on abx # KYMBERLY consider fluids as needed Greatly appreciate consultation! Subjective Date patient seen: Jun 26, 2018 Hematologic/Lymphatic: Reports: anemia Allergies: Coded Allergies: No Known Allergies (Unverified , 08/27/17) All Systems: reviewed and negative except above Subjective No acute events. H/H stable. VS stable. Awaiting placement. Objective Last 24 Hour Vital Signs Date Time Temp Pulse Resp B/P (MAP) Pulse Ox O2 Delivery O2 Flow Rate FiO2 06/26/18 13:30 94 20 97 Room Air 06/26/18 13:26 94 20 95 Room Air 06/26/18 12:00 97.8 83 19 112/70 (84) 95 97.8 06/26/18 09:00 Room Air 06/26/18 08:25 83 18 96 Room Air 06/26/18 08:22 78 18 95 Room Air 21 06/26/18 08:21 96 Room Air 21 06/26/18 08:21 Room Air 21 06/26/18 08:00 97.6 80 19 118/69 (85) 97 97.6 06/26/18 05:20 115/70 06/26/18 04:00 97.2 83 20 115/70 (85) 96 97.2 06/26/18 01:27 88 18 96 Room Air 21 06/26/18 01:18 81 18 94 Room Air 21 06/26/18 00:19 109/67 06/26/18 00:00 98.3 93 20 109/67 (81) 95 98.3 06/25/18 21:00 Room Air 06/25/18 20:00 97.6 86 20 140/65 (90) 100 97.6 06/25/18 19:59 92 18 97 Room Air 21 06/25/18 19:58 86 18 95 Room Air 21 06/25/18 19:58 Room Air 21 06/25/18 19:58 95 Room Air 21 06/25/18 17:45 111/58 06/25/18 16:00 98.4 95 20 111/58 (75) 95 98.4 Intake and Output 06/25/18 06/26/18 19:00 07:00 Output Total 200 ml 400 ml Balance -200 ml -400 ml Output Urine Total 200 ml 400 ml # Bowel Movements 2 Height (Feet): 6 Height (Inches): 5.00 Weight (Pounds): 165 General Appearance: no apparent distress EENT: PERRL/EOMI Neck: normal alignment Cardiovascular: normal peripheral pulses Respiratory/Chest: no respiratory distress Abdomen: non tender Gerard Hernandez MD Jun 26, 2018 14:36
--- NOTE | 2018-06-26 15:05 | Cardiac Electrophysiology PN ---
Assessment/Plan Assessment/Plan 1. Bradycardia with high-grade AV block and 2:1 block off any AV feliciano blocking agents. The patient is now DNR and Family refusing pacer. Off tele now. 2. Hypotension. Off BP meds ok 2. Metastatic prostate cancer, status post prostatectomy in August. 3. Abdominal pain under evaluation by Dr. Joel. 4. Dementia. DW RN Subjective Subjective Transferred to nonmonitored bed. Objective Last 24 Hour Vital Signs Date Time Temp Pulse Resp B/P (MAP) Pulse Ox O2 Delivery O2 Flow Rate FiO2 06/26/18 13:30 94 20 97 Room Air 21 06/26/18 13:26 94 20 95 Room Air 21 06/26/18 12:00 97.8 83 19 112/70 (84) 95 97.8 06/26/18 09:00 Room Air 06/26/18 08:25 83 18 96 Room Air 06/26/18 08:22 78 18 95 Room Air 06/26/18 08:21 96 Room Air 21 06/26/18 08:21 Room Air 21 06/26/18 08:00 97.6 80 19 118/69 (85) 97 97.6 06/26/18 05:20 115/70 06/26/18 04:00 97.2 83 20 115/70 (85) 96 97.2 06/26/18 01:27 88 18 96 Room Air 21 06/26/18 01:18 81 18 94 Room Air 06/26/18 00:19 109/67 06/26/18 00:00 98.3 93 20 109/67 (81) 95 98.3 06/25/18 21:00 Room Air 06/25/18 20:00 97.6 86 20 140/65 (90) 100 97.6 06/25/18 19:59 92 18 97 Room Air 21 06/25/18 19:58 86 18 95 Room Air 21 06/25/18 19:58 Room Air 21 06/25/18 19:58 95 Room Air 21 06/25/18 17:45 111/58 06/25/18 16:00 98.4 95 20 111/58 (75) 95 98.4 Intake and Output 06/25/18 06/26/18 19:00 07:00 Output Total 200 ml 400 ml Balance -200 ml -400 ml Output Urine Total 200 ml 400 ml # Bowel Movements 2 Objective HEAD AND NECK: No JVD. LUNGS: Clear. CARDIOVASCULAR: Bradycardic S1-S2 with no gallop or murmur. ABDOMEN: Soft. EXTREMITIES: 1+ pitting edema. Miko Reed MD Jun 26, 2018 15:05
[2018-06-26 16:00] VITALS: BP 116/65
[2018-06-26 20:00] VITALS: BP 110/72
--- NOTE | 2018-06-26 21:43 | Nephrology Progress Note ---
Assessment/Plan Problem List: (1) Bradycardia (2) Renal insufficiency (3) UTI (urinary tract infection) (4) Prostate cancer metastatic to bone (5) Cognitive decline Assessment Renal failure- Acute on Chronic resolved UTI Bradyarrythmia improved somewhat anemia Prostate Ca with Mets Plan per cardio Minitor renal parameter now DNR DNI 2D echo noted- due Hospice ! Per orders Subjective ROS Limited/Unobtainable: No Constitutional: Reports: malaise, weakness Objective Objective Last 24 Hour Vital Signs Date Time Temp Pulse Resp B/P (MAP) Pulse Ox O2 Delivery O2 Flow Rate FiO2 06/26/18 21:00 Room Air 06/26/18 20:00 99.5 90 18 110/72 (85) 92 99.5 06/26/18 19:59 104 20 98 Room Air 21 06/26/18 19:52 94 Room Air 21 06/26/18 19:52 Room Air 21 06/26/18 19:51 92 20 94 Room Air 21 06/26/18 16:00 98.1 81 20 116/65 (82) 97 98.1 06/26/18 13:30 94 20 97 Room Air 21 06/26/18 13:26 94 20 95 Room Air 21 06/26/18 12:00 97.8 83 19 112/70 (84) 95 97.8 06/26/18 09:00 Room Air 06/26/18 08:25 83 18 96 Room Air 21 06/26/18 08:22 78 18 95 Room Air 21 06/26/18 08:21 96 Room Air 21 06/26/18 08:21 Room Air 21 06/26/18 08:00 97.6 80 19 118/69 (85) 97 97.6 06/26/18 05:20 115/70 06/26/18 04:00 97.2 83 20 115/70 (85) 96 97.2 06/26/18 01:27 88 18 96 Room Air 21 06/26/18 01:18 81 18 94 Room Air 21 06/26/18 00:19 109/67 06/26/18 00:00 98.3 93 20 109/67 (81) 95 98.3 Intake and Output 06/25/18 06/26/18 19:00 07:00 Output Total 200 ml 400 ml Balance -200 ml -400 ml Output Urine Total 200 ml 400 ml # Bowel Movements 2 Height (Feet): 6 Height (Inches): 5.00 Weight (Pounds): 165 General Appearance: lethargic, confused Respiratory/Chest: decreased breath sounds Abdomen: distended Objective no change Christopher Coronado MD Jun 26, 2018 21:43
--- NOTE | 2018-06-26 21:45 | Progress Note ---
DATE: 06/26/2018 SUBJECTIVE: The patient continues to have waxing and waning of consciousness. He gets agitated. He is unable to understand process, communicate, nor appreciate information given to him. Family wants to take the patient to an assisted living. I spoke with the daughter in detail and recommended pen[facility] as the patient does not meet criteria for assisted living. MENTAL STATUS EXAMINATION: The patient is disoriented. Mood is agitated. Affect is constricted. Congruent mood. Thought process is concrete. Thought content, no suicidal or homicidal ideation. ASSESSMENT: Dementia with behavior disturbance and encephalopathy. PLAN: 1. We will continue the current medication. 2. The patient lacks capacity make decisions. 3. Provide the patient with reality orientation and supportive therapy. Vilma Medina M.D. DR: Carlos JOB#: [id number] CC:
[2018-06-27] VITALS (7 sets, daily range): BP systolic 108–139; BP diastolic 61–84
[2018-06-27] MEDS: Albuterol/Ipratropium 3ml neb HHN SCH ×4 (00:43→18:47)
[2018-06-27] MEDS: Bisacodyl EC 5mg tab ORAL SCH (08:16)
[2018-06-27] MEDS: Docusate 100mg cap ORAL SCH ×3 (08:16→17:35)
--- NOTE | 2018-06-27 10:56 | Cardiac Electrophysiology PN ---
Assessment/Plan Assessment/Plan 1. Bradycardia with high-grade AV block and 2:1 block off any AV feliciano blocking agents. The patient is now DNR and Family refusing pacer. Off tele . 2. Hypotension. Off BP meds ok 2. Metastatic prostate cancer, status post prostatectomy in August. 3. Abdominal pain under evaluation by Dr. Joel. 4. Dementia. DW RN and family at bedside. Subjective Subjective On nonmonitored bed.Son and daughter at bedside. Now comfort care. Objective Last 24 Hour Vital Signs Date Time Temp Pulse Resp B/P (MAP) Pulse Ox O2 Delivery O2 Flow Rate FiO2 06/27/18 09:00 Room Air 06/27/18 08:26 92 20 94 Room Air 21 06/27/18 08:00 98.2 98 20 123/84 (97) 95 98.2 06/27/18 04:00 98.5 94 20 139/80 (99) 93 98.5 06/27/18 00:51 91 18 97 Room Air 21 06/27/18 00:43 89 20 93 Room Air 21 06/27/18 00:00 96.6 88 19 108/61 (77) 92 96.6 06/26/18 21:00 Room Air 06/26/18 20:00 99.5 90 18 110/72 (85) 92 99.5 06/26/18 19:59 104 20 98 Room Air 21 06/26/18 19:52 94 Room Air 21 06/26/18 19:52 Room Air 21 06/26/18 19:51 92 20 94 Room Air 21 06/26/18 16:00 98.1 81 20 116/65 (82) 97 98.1 06/26/18 13:30 94 20 97 Room Air 21 06/26/18 13:26 94 20 95 Room Air 21 06/26/18 12:00 97.8 83 19 112/70 (84) 95 97.8 Intake and Output 06/26/18 06/27/18 19:00 07:00 Intake Total 840 ml Output Total 350 ml 475 ml Balance 490 ml -475 ml Intake Oral 840 ml Output Urine Total 350 ml 475 ml Objective HEAD AND NECK: No JVD. LUNGS: Clear. CARDIOVASCULAR: Bradycardic S1-S2 with no gallop or murmur. ABDOMEN: Soft. EXTREMITIES: 1+ pitting edema. Miko Reed MD Jun 27, 2018 10:56
--- NOTE | 2018-06-27 11:35 | GI Progress Note ---
Assessment/Plan Problems: (1) Abdominal pain ICD Codes: R10.9 - Unspecified abdominal pain SNOMED: 24402014 (2) Anemia ICD Codes: D64.9 - Anemia, unspecified SNOMED: 708177753 (3) Constipation ICD Codes: K59.00 - Constipation, unspecified SNOMED: 20488901 Status: stable Status Narrative Discussed with Dr. Joel. Assessment/Plan Prostate CA s/p prostatectomy with osseous metastases video swallow today >> noted with trace aspiration supportive care / symptomatic treatment PEG if family agrees, on regular diet fu oncology recs pain mgmt zofran prn monitor H&H, prn transfusions bowel regime ppi fu labs recommend hospice care The patient was seen and examined at bedside and all new and available data was reviewed in the patients chart. I agree with the above findings, impression and plan. (Patient seen earlier today. Signature stamp does not reflect patient encounter time.). - Rush Joel MD Subjective Subjective generalized pain Objective Last 24 Hour Vital Signs Date Time Temp Pulse Resp B/P (MAP) Pulse Ox O2 Delivery O2 Flow Rate FiO2 06/27/18 09:00 Room Air 06/27/18 08:26 92 20 94 Room Air 21 06/27/18 08:00 98.2 98 20 123/84 (97) 95 98.2 06/27/18 04:00 98.5 94 20 139/80 (99) 93 98.5 06/27/18 00:51 91 18 97 Room Air 21 06/27/18 00:43 89 20 93 Room Air 21 06/27/18 00:00 96.6 88 19 108/61 (77) 92 96.6 06/26/18 21:00 Room Air 06/26/18 20:00 99.5 90 18 110/72 (85) 92 99.5 06/26/18 19:59 104 20 98 Room Air 21 06/26/18 19:52 94 Room Air 21 06/26/18 19:52 Room Air 21 06/26/18 19:51 92 20 94 Room Air 21 06/26/18 16:00 98.1 81 20 116/65 (82) 97 98.1 06/26/18 13:30 94 20 97 Room Air 21 06/26/18 13:26 94 20 95 Room Air 21 06/26/18 12:00 97.8 83 19 112/70 (84) 95 97.8 Intake and Output 06/26/18 06/27/18 19:00 07:00 Intake Total 840 ml Output Total 350 ml 475 ml Balance 490 ml -475 ml Intake Oral 840 ml Output Urine Total 350 ml 475 ml Height (Feet): 6 Height (Inches): 5.00 Weight (Pounds): 165 General Appearance: WD/WN, no apparent distress, alert Cardiovascular: normal rate Respiratory/Chest: normal breath sounds, no respiratory distress Abdominal Exam: normal bowel sounds, non tender, soft Extremities: non-tender Kristi Hernandez SUSPENDER MAKER Jun 27, 2018 11:35
--- NOTE | 2018-06-27 13:15 | Infectious Diseases Prog Note ---
Assessment/Plan Assessment/Plan A; Cystitis treated Metastatic prostatic cancer Bradycardia AV block Dementia P; observe off antibiotic Patient's family want hospice Subjective ROS Limited/Unobtainable: Yes Allergies: Coded Allergies: No Known Allergies (Unverified , 08/27/17) Objective Vital Signs Last 24 Hour Vital Signs Date Time Temp Pulse Resp B/P (MAP) Pulse Ox O2 Delivery O2 Flow Rate FiO2 06/27/18 13:08 87 20 95 Room Air 21 06/27/18 09:00 Room Air 06/27/18 08:32 95 20 97 Room Air 21 06/27/18 08:26 92 20 94 Room Air 21 06/27/18 08:00 98.2 98 20 123/84 (97) 95 98.2 06/27/18 04:00 98.5 94 20 139/80 (99) 93 98.5 06/27/18 00:51 91 18 97 Room Air 21 06/27/18 00:43 89 20 93 Room Air 21 06/27/18 00:00 96.6 88 19 108/61 (77) 92 96.6 06/26/18 21:00 Room Air 06/26/18 20:00 99.5 90 18 110/72 (85) 92 99.5 06/26/18 19:59 104 20 98 Room Air 21 06/26/18 19:52 94 Room Air 21 06/26/18 19:52 Room Air 21 06/26/18 19:51 92 20 94 Room Air 21 06/26/18 16:00 98.1 81 20 116/65 (82) 97 98.1 06/26/18 13:30 94 20 97 Room Air 21 06/26/18 13:26 94 20 95 Room Air 21 Height (Feet): 6 Height (Inches): 5.00 Weight (Pounds): 165 General Appearance: no acute distress HEENT: mucous membranes moist Respiratory/Chest: lungs clear Cardiovascular: normal rate Abdomen: soft, non tender Extremities: no edema Neurologic/Psychiatric: disoriented Current Medications Medications (Trade) Dose Ordered Sig/Pancho Route PRN Reason Start Time Stop Time Status Last Admin Dose Admin Acetaminophen (Tylenol) 500 mg Q4H PRN ORAL Mild Pain/Temp > 100.5 06/25/18 23:30 07/18/18 23:29 Albuterol/ Ipratropium (Albuterol/ Ipratropium) 3 ml Q6HRT HHN 06/26/18 01:00 06/29/18 12:59 06/27/18 13:07 Bisacodyl (Dulcolax) 10 mg DAILY ORAL 06/26/18 09:00 07/22/18 08:59 06/26/18 08:36 Docusate Sodium (Colace) 100 mg THREE TIMES A DAY ORAL 06/26/18 09:00 07/19/18 12:59 06/26/18 08:36 Glycopyrrolate (Robinul) 0.2 mg BIDPRN PRN IV excessive secretions 06/26/18 11:30 07/26/18 11:29 Guaifenesin (Robitussin) 100 mg Q4H PRN ORAL For Cough 06/26/18 02:00 07/24/18 13:55 Lorazepam (Ativan 2mg/ml 1ml) 1 mg Q4H PRN IV For Anxiety 06/26/18 11:39 07/03/18 11:38 Magnesium Hydroxide (Mom) 30 ml Q4H PRN ORAL Constipation 06/25/18 23:00 07/21/18 10:59 Sennosides (Senokot) 1 tab DAILY PRN ORAL Constipation 06/26/18 09:00 07/21/18 10:59 Mario Daigle MD Jun 27, 2018 13:15
--- NOTE | 2018-06-27 18:48 | General Progress Note ---
Assessment/Plan Assessment/Plan # Prostate cancer with extensive metastases -- extensive sclerotic lesions throughout the pelvic bones, spine, ribs, and visualized sternum, compatible with osseous metastases, significantly worsened compared to prior exam. PSA 531 , likely will be further increased as he has not received any treatment --> received prostatectomy in 08/2017 --> has progressed on multiple regimens, on hospice/cc --> talked to son 06/20/18 re prognosis, at this time on HOSPICE/COMFORT CARE --> continue to recreation counselor daily as best as possible --> onco and uro outpatient f/u --> Dr. Gonzalez outpatient f/u --> family and patient want comfort care --> IS DNR # Anemia due to malignancy --> likely worse given progression of disease --> Hgb goal above 7 --> Currently stable. # Bradycardic, second-degree AV block, Mobitz type I --> appreciate recs by Dr. Reed # UTI on abx as per pcp --> on abx # KYMBERLY consider fluids as needed Greatly appreciate consultation! Subjective Constitutional: Denies: no symptoms, chills, diaphoresis, fever, malaise, weakness, other HEENT: Denies: no symptoms, eye pain, blurred vision, tearing, double vision, ear pain, ear discharge, nose pain, nose congestion, throat pain, throat swelling, mouth pain, mouth swelling, other Cardiovascular: Denies: no symptoms, chest pain, edema, irregular heart rate, lightheadedness, palpitations, syncope, other Respiratory: Denies: no symptoms, cough, orthopnea, shortness of breath, SOB with excertion, SOB at rest, sputum, stridor, wheezing, other Gastrointestinal/Abdominal: Denies: no symptoms, abdomen distended, abdominal pain, black stools, tarry stools, blood in stool, constipated, diarrhea, difficulty swallowing, nausea, poor appetite, poor fluid intake, rectal bleeding , vomiting, other Genitourinary: Denies: no symptoms, burning, discharge, frequency, flank pain, hematuria, incontinence, pain, urgency, other Neurologic/Psychiatric: Denies: no symptoms, anxiety, depressed, emotional problems, headache, numbness, paresthesia, pre-existing deficit, seizure, tingling, tremors, weakness, other Endocrine: Denies: no symptoms, excessive sweating, flushing, intolerance to cold, intolerance to heat, increased hunger, increased thirst, increased urine, unexplained weight gain, unexplained weight loss, other Hematologic/Lymphatic: Denies: no symptoms, anemia, easy bleeding, easy bruising, other Allergies: Coded Allergies: No Known Allergies (Unverified , 08/27/17) Subjective No acute events. H/H stable. VS stable. On comfort care Objective Last 24 Hour Vital Signs Date Time Temp Pulse Resp B/P (MAP) Pulse Ox O2 Delivery O2 Flow Rate FiO2 06/27/18 16:00 98.8 98 20 128/72 (90) 92 98.8 06/27/18 13:12 90 20 97 Room Air 21 06/27/18 13:08 87 20 95 Room Air 21 06/27/18 12:00 99.0 97 20 111/66 (81) 93 99.0 06/27/18 09:00 Room Air 06/27/18 08:32 95 20 97 Room Air 21 06/27/18 08:26 92 20 94 Room Air 21 06/27/18 08:00 98.2 98 20 123/84 (97) 95 98.2 06/27/18 04:00 98.5 94 20 139/80 (99) 93 98.5 06/27/18 00:51 91 18 97 Room Air 21 06/27/18 00:43 89 20 93 Room Air 21 06/27/18 00:00 96.6 88 19 108/61 (77) 92 96.6 06/26/18 21:00 Room Air 06/26/18 20:00 99.5 90 18 110/72 (85) 92 99.5 06/26/18 19:59 104 20 98 Room Air 21 06/26/18 19:52 94 Room Air 21 06/26/18 19:52 Room Air 21 06/26/18 19:51 92 20 94 Room Air 21 Intake and Output 06/26/18 06/27/18 19:00 07:00 Intake Total 840 ml Output Total 350 ml 475 ml Balance 490 ml -475 ml Intake Oral 840 ml Output Urine Total 350 ml 475 ml Height (Feet): 6 Height (Inches): 5.00 Weight (Pounds): 165 General Appearance: lethargic EENT: TMs normal Neck: supple Cardiovascular: regular rhythm Respiratory/Chest: lungs clear Abdomen: no mass Extremities: non-tender Edema: 1+ Leg (L), 1+ Leg (R) Edema: mild edema Neurologic: alert Skin: normal pigmentation Gerard Hernandez MD Jun 27, 2018 18:48
--- NOTE | 2018-06-27 21:41 | Pulmonology Progress Note ---
Assessment/Plan Assessment/Plan ASSESSMENT: The patient is an 83-year-old male with metastatic prostate cancer with known osseous metastases, admitted with abdominal pain, initially concerning for UTI, now with 2-3 days of increased coughing. He does not appear infected from pulmonary standpoint. He does have history of extensive tobacco use, though has never been formally diagnosed with COPD. I suspect he has a component of bronchitis plus or minus smoker's cough. PROBLEM LIST: 1. Cough and congestion, likely secondary to bronchitis and smoker's cough. 2. Extensive former smoker without stated history of COPD. 3. Bibasilar atelectasis. 4. Metastatic prostate cancer, status post prostatectomy, who refused chemoradiation with known osseous metastases. 5. Anemia. 6. Bradycardia, AV block. 7. Abdominal pain. 8. Known osseous mets TREATMENT PLAN: COMFORT MEASURES ONLY CONTINUE O2 for COMFORT HHN's PRN MSO4, ATIVAN and ROBINUL DNAR/DNI Dispo planning to SNF on hospice Subjective Allergies: Coded Allergies: No Known Allergies (Unverified , 08/27/17) Subjective No distress Family wants pt to go to [facility] on hospice, declining SNF Objective Last 24 Hour Vital Signs Date Time Temp Pulse Resp B/P (MAP) Pulse Ox O2 Delivery O2 Flow Rate FiO2 06/27/18 18:57 88 20 98 Room Air 21 06/27/18 18:47 84 20 94 Room Air 21 06/27/18 16:00 98.8 98 20 128/72 (90) 92 98.8 06/27/18 13:12 90 20 97 Room Air 21 06/27/18 13:08 87 20 95 Room Air 21 06/27/18 12:00 99.0 97 20 111/66 (81) 93 99.0 06/27/18 09:00 Room Air 06/27/18 08:32 95 20 97 Room Air 21 06/27/18 08:26 92 20 94 Room Air 21 06/27/18 08:00 98.2 98 20 123/84 (97) 95 98.2 06/27/18 04:00 98.5 94 20 139/80 (99) 93 98.5 06/27/18 00:51 91 18 97 Room Air 21 06/27/18 00:43 89 20 93 Room Air 21 06/27/18 00:00 96.6 88 19 108/61 (77) 92 96.6 Intake and Output 06/26/18 06/27/18 19:00 07:00 Intake Total 840 ml Output Total 350 ml 475 ml Balance 490 ml -475 ml Intake Oral 840 ml Output Urine Total 350 ml 475 ml General Appearance: no acute distress, cachetic HEENT: normocephalic, atraumatic, anicteric, mucous membranes moist Respiratory/Chest: chest wall non-tender, lungs clear, normal breath sounds, no respiratory distress, no accessory muscle use Cardiovascular: normal peripheral pulses, normal rate, regular rhythm Abdomen: normal bowel sounds, soft, non tender, no organomegaly, non distended , no mass Extremities: no cyanosis, no clubbing, no edema Current Medications Medications (Trade) Dose Ordered Sig/Pancho Route PRN Reason Start Time Stop Time Status Last Admin Dose Admin Acetaminophen (Tylenol) 500 mg Q4H PRN ORAL Mild Pain/Temp > 100.5 06/25/18 23:30 07/18/18 23:29 Albuterol/ Ipratropium (Albuterol/ Ipratropium) 3 ml Q6HRT HHN 06/26/18 01:00 06/29/18 12:59 06/27/18 18:47 Bisacodyl (Dulcolax) 10 mg DAILY ORAL 06/26/18 09:00 07/22/18 08:59 06/26/18 08:36 Docusate Sodium (Colace) 100 mg THREE TIMES A DAY ORAL 06/26/18 09:00 07/19/18 12:59 06/26/18 08:36 Glycopyrrolate (Robinul) 0.2 mg BIDPRN PRN IV excessive secretions 06/26/18 11:30 07/26/18 11:29 Guaifenesin (Robitussin) 100 mg Q4H PRN ORAL For Cough 06/26/18 02:00 07/24/18 13:55 Lorazepam (Ativan 2mg/ml 1ml) 1 mg Q4H PRN IV For Anxiety 06/26/18 11:39 07/03/18 11:38 Magnesium Hydroxide (Mom) 30 ml Q4H PRN ORAL Constipation 06/25/18 23:00 07/21/18 10:59 Sennosides (Senokot) 1 tab DAILY PRN ORAL Constipation 06/26/18 09:00 07/21/18 10:59 Neo Mei MD Jun 27, 2018 21:41
--- NOTE | 2018-06-27 21:58 | General Progress Note ---
Assessment/Plan Problem List: (1) Anemia ICD Codes: D64.9 - Anemia, unspecified SNOMED: 527691717 (2) Abdominal pain ICD Codes: R10.9 - Unspecified abdominal pain SNOMED: 92266741 (3) Hematuria ICD Codes: R31.9 - Hematuria, unspecified SNOMED: 44346882 (4) Bradycardia ICD Codes: R00.1 - Bradycardia, unspecified SNOMED: 15822144 (5) Renal insufficiency ICD Codes: N28.9 - Disorder of kidney and ureter, unspecified SNOMED: 274347517, 426830248 (6) UTI (urinary tract infection) ICD Codes: N39.0 - Urinary tract infection, site not specified SNOMED: 40087619 (7) Abnormal urogenital findings ICD Codes: R89.9 - Unspecified abnormal finding in specimens from other organs , systems and tissues SNOMED: 405997084, 174757293 Assessment/Plan i have told ivett the keycase assembler director to go with whatever the family wants will honor family/dpoa wishes in dying stage lethargic pain control has advanced prostatic ca w mets family wants comfort care and hospice Subjective ROS Limited/Unobtainable: Yes Allergies: Coded Allergies: No Known Allergies (Unverified , 08/27/17) Objective Last 24 Hour Vital Signs Date Time Temp Pulse Resp B/P (MAP) Pulse Ox O2 Delivery O2 Flow Rate FiO2 06/27/18 18:57 88 20 98 Room Air 21 06/27/18 18:47 84 20 94 Room Air 21 06/27/18 16:00 98.8 98 20 128/72 (90) 92 98.8 06/27/18 13:12 90 20 97 Room Air 21 06/27/18 13:08 87 20 95 Room Air 21 06/27/18 12:00 99.0 97 20 111/66 (81) 93 99.0 06/27/18 09:00 Room Air 06/27/18 08:32 95 20 97 Room Air 21 06/27/18 08:26 92 20 94 Room Air 21 06/27/18 08:00 98.2 98 20 123/84 (97) 95 98.2 06/27/18 04:00 98.5 94 20 139/80 (99) 93 98.5 06/27/18 00:51 91 18 97 Room Air 21 06/27/18 00:43 89 20 93 Room Air 21 06/27/18 00:00 96.6 88 19 108/61 (77) 92 96.6 Intake and Output 06/26/18 06/27/18 19:00 07:00 Intake Total 840 ml Output Total 350 ml 475 ml Balance 490 ml -475 ml Intake Oral 840 ml Output Urine Total 350 ml 475 ml Height (Feet): 6 Height (Inches): 5.00 Weight (Pounds): 165 General Appearance: lethargic, confused Yury Murray MD Jun 27, 2018 21:58
--- NOTE | 2018-06-28 00:30 | Progress Note ---
DATE: 06/27/2018 SUBJECTIVE: The family was in the room. The patient is alert, was more communicative. The patient does not have any aggressive behavior nor any agitation. He has been calm. The patient's family requested the patient go to assisted living. I had an extensive meeting with the family this morning. The paperwork at the assisted living was filled out. The patient appears to have more encephalopathy rather than dementia. The patient also requested a hospice and they do not want the SNF placement. MENTAL STATUS EXAM: The patient is alert and oriented to himself and place. Mood is neutral. Affect is flat. Congruent with mood. Thought process is concrete. Thought content, no suicidal or homicidal ideations. ASSESSMENT: Encephalopathy due to toxic metabolic ____. PLAN: The patient is only on comfort care. No psychotropic medication beside Ativan. Vilma Medina M.D. DR: LUIS JOB#: [id number] CC:
[2018-06-28] MEDS: Albuterol/Ipratropium 3ml neb HHN SCH ×2 (00:57→07:00)
[2018-06-28 04:00] VITALS: BP 115/71
[2018-06-28 08:00] VITALS: BP 121/79
--- NOTE | 2018-06-28 08:34 | Pulmonology Progress Note ---
Assessment/Plan Assessment/Plan ASSESSMENT: The patient is an 83-year-old male with metastatic prostate cancer with known osseous metastases, admitted with abdominal pain, initially concerning for UTI, now with 2-3 days of increased coughing. He does not appear infected from pulmonary standpoint. He does have history of extensive tobacco use, though has never been formally diagnosed with COPD. I suspect he has a component of bronchitis plus or minus smoker's cough. PROBLEM LIST: 1. Cough and congestion, likely secondary to bronchitis and smoker's cough. 2. Extensive former smoker without stated history of COPD. 3. Bibasilar atelectasis. 4. Metastatic prostate cancer, status post prostatectomy, who refused chemoradiation with known osseous metastases. 5. Anemia. 6. Bradycardia, AV block. 7. Abdominal pain. 8. Known osseous mets TREATMENT PLAN: COMFORT MEASURES ONLY CONTINUE O2 for COMFORT HHN's PRN MSO4, ATIVAN and ROBINUL DNAR/DNI Dispo planning to SNF on hospice Subjective Allergies: Coded Allergies: No Known Allergies (Unverified , 08/27/17) Subjective No distress Declined HHN's Awake Objective Last 24 Hour Vital Signs Date Time Temp Pulse Resp B/P (MAP) Pulse Ox O2 Delivery O2 Flow Rate FiO2 06/28/18 08:00 98.2 76 20 121/79 (93) 95 98.2 06/28/18 07:35 Room Air 21 06/28/18 07:35 Room Air 21 06/28/18 04:00 98.1 81 20 115/71 (86) 91 98.1 06/28/18 00:58 Room Air 21 06/28/18 00:57 Room Air 21 06/27/18 23:36 98.4 81 20 120/74 (89) 92 98.4 06/27/18 21:00 Room Air 06/27/18 20:00 97.9 85 20 123/74 (90) 94 97.9 06/27/18 18:57 88 20 98 Room Air 21 06/27/18 18:47 84 20 94 Room Air 21 06/27/18 16:00 98.8 98 20 128/72 (90) 92 98.8 06/27/18 13:12 90 20 97 Room Air 21 06/27/18 13:08 87 20 95 Room Air 21 06/27/18 12:00 99.0 97 20 111/66 (81) 93 99.0 06/27/18 09:00 Room Air Intake and Output 06/27/18 06/28/18 19:00 07:00 Intake Total 358 ml Output Total 325 ml 250 ml Balance 33 ml -250 ml Intake Oral 358 ml Output Urine Total 325 ml 250 ml # Voids 1 # Bowel Movements 3 1 General Appearance: no acute distress, cachetic HEENT: normocephalic, atraumatic, anicteric, mucous membranes moist Respiratory/Chest: chest wall non-tender, lungs clear, normal breath sounds, no respiratory distress, no accessory muscle use Cardiovascular: normal peripheral pulses, normal rate, regular rhythm Abdomen: normal bowel sounds, soft, non tender, no organomegaly, non distended , no mass Extremities: no cyanosis, no clubbing, no edema Current Medications Medications (Trade) Dose Ordered Sig/Pancho Route PRN Reason Start Time Stop Time Status Last Admin Dose Admin Acetaminophen (Tylenol) 500 mg Q4H PRN ORAL Mild Pain/Temp > 100.5 06/25/18 23:30 07/18/18 23:29 Albuterol/ Ipratropium (Albuterol/ Ipratropium) 3 ml Q6HRT HHN 06/26/18 01:00 06/29/18 12:59 06/27/18 18:47 Bisacodyl (Dulcolax) 10 mg DAILY ORAL 06/26/18 09:00 07/22/18 08:59 06/26/18 08:36 Docusate Sodium (Colace) 100 mg THREE TIMES A DAY ORAL 06/26/18 09:00 07/19/18 12:59 06/26/18 08:36 Glycopyrrolate (Robinul) 0.2 mg BIDPRN PRN IV excessive secretions 06/26/18 11:30 07/26/18 11:29 Guaifenesin (Robitussin) 100 mg Q4H PRN ORAL For Cough 06/26/18 02:00 07/24/18 13:55 Lorazepam (Ativan 2mg/ml 1ml) 1 mg Q4H PRN IV For Anxiety 06/26/18 11:39 07/03/18 11:38 Magnesium Hydroxide (Mom) 30 ml Q4H PRN ORAL Constipation 06/25/18 23:00 11/11/18 10:59 Sennosides (Senokot) 1 tab DAILY PRN ORAL Constipation 06/26/18 09:00 07/21/18 10:59 Neo Mei MD Jun 28, 2018 08:34
[2018-06-28] MEDS ORDERED: Albuterol/Ipratropium 3ml neb HHN PRN (08:45)
[2018-06-28] MEDS: Docusate 100mg cap ORAL SCH ×4 (08:55→17:33)
[2018-06-28] MEDS: Bisacodyl EC 5mg tab ORAL SCH (08:56)
--- NOTE | 2018-06-28 11:07 | GI Progress Note ---
Assessment/Plan Problems: (1) Abdominal pain ICD Codes: R10.9 - Unspecified abdominal pain SNOMED: 26174357 (2) Anemia ICD Codes: D64.9 - Anemia, unspecified SNOMED: 506010912 (3) Constipation ICD Codes: K59.00 - Constipation, unspecified SNOMED: 37233163 Status: unchanged Status Narrative Discussed with Dr. Joel. Assessment/Plan Prostate CA s/p prostatectomy with osseous metastases video swallow today >> noted with trace aspiration supportive care / symptomatic treatment PEG if family agrees, on regular diet >> push PO fu oncology recs pain mgmt zofran prn monitor H&H, prn transfusions bowel regime ppi fu labs recommend hospice care The patient was seen and examined at bedside and all new and available data was reviewed in the patients chart. I agree with the above findings, impression and plan. (Patient seen earlier today. Signature stamp does not reflect patient encounter time.). - Rush Joel MD Subjective Subjective generalized pain Objective Last 24 Hour Vital Signs Date Time Temp Pulse Resp B/P (MAP) Pulse Ox O2 Delivery O2 Flow Rate FiO2 06/28/18 09:00 Room Air 06/28/18 08:00 98.2 76 20 121/79 (93) 95 98.2 06/28/18 07:35 Room Air 21 06/28/18 07:35 Room Air 21 06/28/18 04:00 98.1 81 20 115/71 (86) 91 98.1 06/28/18 00:58 Room Air 21 06/28/18 00:57 Room Air 21 06/27/18 23:36 98.4 81 20 120/74 (89) 92 98.4 06/27/18 21:00 Room Air 06/27/18 20:00 97.9 85 20 123/74 (90) 94 97.9 06/27/18 18:57 88 20 98 Room Air 21 06/27/18 18:47 84 20 94 Room Air 21 06/27/18 16:00 98.8 98 20 128/72 (90) 92 98.8 06/27/18 13:12 90 20 97 Room Air 21 06/27/18 13:08 87 20 95 Room Air 21 06/27/18 12:00 99.0 97 20 111/66 (81) 93 99.0 Intake and Output 06/27/18 06/28/18 18:59 06:59 Intake Total 358 ml Output Total 325 ml 250 ml Balance 33 ml -250 ml Intake Oral 358 ml Output Urine Total 325 ml 250 ml # Voids 1 # Bowel Movements 3 1 Height (Feet): 6 Height (Inches): 5.00 Weight (Pounds): 165 General Appearance: WD/WN, no apparent distress, alert Cardiovascular: normal rate Respiratory/Chest: normal breath sounds, no respiratory distress Abdominal Exam: normal bowel sounds, non tender, soft Extremities: normal range of motion, non-tender Kristi Hernandez DIRECTOR OF BRAND MARKETING Jun 28, 2018 11:07
[2018-06-28 12:00] VITALS: BP 123/71
--- NOTE | 2018-06-28 12:52 | Cardiac Electrophysiology PN ---
Assessment/Plan Assessment/Plan 1. Bradycardia with high-grade AV block and 2:1 block off any AV feliciano blocking agents. The patient is DNR and Family refusing pacer. Off tele . 2. Hypotension. Off BP meds ok 2. Metastatic prostate cancer, status post prostatectomy in August. 3. Abdominal pain under evaluation by Dr. Joel. 4. Dementia. 5. Comfort care. Hospice placement is pending DW RN and family at bedside. Subjective Subjective Son and daughter at bedside. Awaiting Hospice placement. Very alert today. Daughter says had lunch and breakfast Objective Last 24 Hour Vital Signs Date Time Temp Pulse Resp B/P (MAP) Pulse Ox O2 Delivery O2 Flow Rate FiO2 06/28/18 12:00 97.7 86 20 123/71 (88) 95 97.7 06/28/18 09:00 Room Air 06/28/18 08:00 98.2 76 20 121/79 (93) 95 98.2 06/28/18 07:35 Room Air 21 06/28/18 07:35 Room Air 21 06/28/18 04:00 98.1 81 20 115/71 (86) 91 98.1 06/28/18 00:58 Room Air 21 06/28/18 00:57 Room Air 21 06/27/18 23:36 98.4 81 20 120/74 (89) 92 98.4 06/27/18 21:00 Room Air 06/27/18 20:00 97.9 85 20 123/74 (90) 94 97.9 06/27/18 18:57 88 20 98 Room Air 21 06/27/18 18:47 84 20 94 Room Air 21 06/27/18 16:00 98.8 98 20 128/72 (90) 92 98.8 06/27/18 13:12 90 20 97 Room Air 21 06/27/18 13:08 87 20 95 Room Air 21 Intake and Output 06/27/18 06/28/18 18:59 06:59 Intake Total 358 ml Output Total 325 ml 250 ml Balance 33 ml -250 ml Intake Oral 358 ml Output Urine Total 325 ml 250 ml # Voids 1 # Bowel Movements 3 1 Objective HEAD AND NECK: No JVD. LUNGS: Clear. CARDIOVASCULAR: Murali S1-S2 with no gallop or murmur. ABDOMEN: Soft. EXTREMITIES: 1+ pitting edema. Miko Reed MD Jun 28, 2018 12:51
--- NOTE | 2018-06-28 15:03 | Infectious Diseases Prog Note ---
Assessment/Plan Assessment/Plan A; Cystitis treated Metastatic prostatic cancer Bradycardia AV block Dementia P; observe off antibiotic Patient's family want hospice Subjective ROS Limited/Unobtainable: Yes Allergies: Coded Allergies: No Known Allergies (Unverified , 08/27/17) Objective Vital Signs Last 24 Hour Vital Signs Date Time Temp Pulse Resp B/P (MAP) Pulse Ox O2 Delivery O2 Flow Rate FiO2 06/28/18 12:00 97.7 86 20 123/71 (88) 95 97.7 06/28/18 09:00 Room Air 06/28/18 08:00 98.2 76 20 121/79 (93) 95 98.2 06/28/18 07:35 Room Air 21 06/28/18 07:35 Room Air 21 06/28/18 04:00 98.1 81 20 115/71 (86) 91 98.1 06/28/18 00:58 Room Air 21 06/28/18 00:57 Room Air 21 06/27/18 23:36 98.4 81 20 120/74 (89) 92 98.4 06/27/18 21:00 Room Air 06/27/18 20:00 97.9 85 20 123/74 (90) 94 97.9 06/27/18 18:57 88 20 98 Room Air 21 06/27/18 18:47 84 20 94 Room Air 21 06/27/18 16:00 98.8 98 20 128/72 (90) 92 98.8 Height (Feet): 6 Height (Inches): 5.00 Weight (Pounds): 165 General Appearance: no acute distress HEENT: mucous membranes moist Respiratory/Chest: lungs clear Cardiovascular: normal rate Abdomen: soft, non tender Genitourinary: other - Orta catheter Extremities: no edema Neurologic/Psychiatric: alert Current Medications Medications (Trade) Dose Ordered Sig/Pancho Route PRN Reason Start Time Stop Time Status Last Admin Dose Admin Acetaminophen (Tylenol) 500 mg Q4H PRN ORAL Mild Pain/Temp > 100.5 06/25/18 23:30 07/18/18 23:29 Albuterol/ Ipratropium (Albuterol/ Ipratropium) 3 ml Q4H PRN HHN SOB/wheezing 06/28/18 08:45 07/03/18 08:44 Bisacodyl (Dulcolax) 10 mg DAILY ORAL 06/26/18 09:00 07/22/18 08:59 06/28/18 08:56 Docusate Sodium (Colace) 100 mg THREE TIMES A DAY ORAL 06/26/18 09:00 07/19/18 12:59 06/28/18 12:32 Glycopyrrolate (Robinul) 0.2 mg BIDPRN PRN IV excessive secretions 06/26/18 11:30 07/26/18 11:29 Guaifenesin (Robitussin) 100 mg Q4H PRN ORAL For Cough 06/26/18 02:00 07/24/18 13:55 Lorazepam (Ativan 2mg/ml 1ml) 1 mg Q4H PRN IV For Anxiety 06/26/18 11:39 07/03/18 11:38 Magnesium Hydroxide (Mom) 30 ml Q4H PRN ORAL Constipation 06/25/18 23:00 07/21/18 10:59 Sennosides (Senokot) 1 tab DAILY PRN ORAL Constipation 06/26/18 09:00 07/21/18 10:59 Mario Daigle MD Jun 28, 2018 15:03
[2018-06-28 16:00] VITALS: BP 130/74
--- NOTE | 2018-06-28 16:22 | General Progress Note ---
Assessment/Plan Status: stable Assessment/Plan # Prostate cancer with extensive metastases -- extensive sclerotic lesions throughout the pelvic bones, spine, ribs, and visualized sternum, compatible with osseous metastases, significantly worsened compared to prior exam. PSA 531 , likely will be further increased as he has not received any treatment --> received prostatectomy in 08/2017 --> has progressed on multiple regimens, on hospice/cc --> talked to son 06/20/18 re prognosis, at this time on HOSPICE/COMFORT CARE --> continue to mortgage counselor daily as best as possible --> onco and uro outpatient f/u --> Dr. Gonzalez outpatient f/u --> family and patient want comfort care --> IS DNR # Anemia due to malignancy --> likely worse given progression of disease --> Hgb goal above 7 --> Currently stable. # Bradycardic, second-degree AV block, Mobitz type I --> appreciate recs by Dr. Reed # UTI on abx as per pcp --> abx completed # KYMBERLY consider fluids as needed Greatly appreciate consultation! Subjective Date patient seen: Jun 28, 2018 Hematologic/Lymphatic: Reports: anemia Allergies: Coded Allergies: No Known Allergies (Unverified , 08/27/17) All Systems: reviewed and negative except above Subjective No acute events. H/H stable. VS stable. On comfort care Objective Last 24 Hour Vital Signs Date Time Temp Pulse Resp B/P (MAP) Pulse Ox O2 Delivery O2 Flow Rate FiO2 06/28/18 16:00 98.4 87 20 130/74 (92) 94 98.4 06/28/18 12:00 97.7 86 20 123/71 (88) 95 97.7 06/28/18 09:00 Room Air 06/28/18 08:00 98.2 76 20 121/79 (93) 95 98.2 06/28/18 07:35 Room Air 21 06/28/18 07:35 Room Air 21 06/28/18 04:00 98.1 81 20 115/71 (86) 91 98.1 06/28/18 00:58 Room Air 21 06/28/18 00:57 Room Air 21 06/27/18 23:36 98.4 81 20 120/74 (89) 92 98.4 06/27/18 21:00 Room Air 06/27/18 20:00 97.9 85 20 123/74 (90) 94 97.9 06/27/18 18:57 88 20 98 Room Air 21 06/27/18 18:47 84 20 94 Room Air 21 Intake and Output 06/27/18 06/28/18 18:59 06:59 Intake Total 358 ml Output Total 325 ml 250 ml Balance 33 ml -250 ml Intake Oral 358 ml Output Urine Total 325 ml 250 ml # Voids 1 # Bowel Movements 3 1 Height (Feet): 6 Height (Inches): 5.00 Weight (Pounds): 165 General Appearance: no apparent distress, confused EENT: PERRL/EOMI Neck: normal alignment Cardiovascular: normal peripheral pulses Respiratory/Chest: no respiratory distress Abdomen: soft Gerard Hernandez MD Jun 28, 2018 16:22
[2018-06-28 19:54] VITALS: BP 127/76
--- NOTE | 2018-06-28 22:18 | General Progress Note ---
Assessment/Plan Status: stable, progressing Assessment/Plan encephalopathy psychotic d/o -Ativan 1mg iv q4hr prn agitation -the pt lacks capacity to make decisions. soft restraints prn the pt son gave consent to pace maker the pt may not refuse any tests or meds as he lacks capacity to make decisions d/w daughter. Subjective Date patient seen: Jun 28, 2018 Neurologic/Psychiatric: Reports: anxiety Allergies: Coded Allergies: No Known Allergies (Unverified , 08/27/17) Subjective the pt is confused and attempted to pull out his iv and cath the family refused restraints. Objective Last 24 Hour Vital Signs Date Time Temp Pulse Resp B/P (MAP) Pulse Ox O2 Delivery O2 Flow Rate FiO2 06/28/18 21:00 Room Air 06/28/18 20:00 92 18 Room Air 21 06/28/18 19:54 98.6 91 20 127/76 (93) 91 98.6 06/28/18 16:00 98.4 87 20 130/74 (92) 94 98.4 06/28/18 12:00 97.7 86 20 123/71 (88) 95 97.7 06/28/18 09:00 Room Air 06/28/18 08:00 98.2 76 20 121/79 (93) 95 98.2 06/28/18 07:35 Room Air 21 06/28/18 07:35 Room Air 21 06/28/18 04:00 98.1 81 20 115/71 (86) 91 98.1 06/28/18 00:58 Room Air 21 06/28/18 00:57 Room Air 21 06/27/18 23:36 98.4 81 20 120/74 (89) 92 98.4 Intake and Output 06/27/18 06/28/18 19:00 07:00 Intake Total 358 ml Output Total 325 ml 250 ml Balance 33 ml -250 ml Intake Oral 358 ml Output Urine Total 325 ml 250 ml # Voids 1 # Bowel Movements 3 1 Height (Feet): 6 Height (Inches): 5.00 Weight (Pounds): 165 General Appearance: no apparent distress, alert, confused Vilma Medina MD Jun 28, 2018 22:18
--- NOTE | 2018-06-28 23:11 | General Progress Note ---
Assessment/Plan Problem List: (1) Anemia ICD Codes: D64.9 - Anemia, unspecified SNOMED: 522483876 (2) Abdominal pain ICD Codes: R10.9 - Unspecified abdominal pain SNOMED: 44433592 (3) Hematuria ICD Codes: R31.9 - Hematuria, unspecified SNOMED: 44197109 (4) Bradycardia ICD Codes: R00.1 - Bradycardia, unspecified SNOMED: 41221537 (5) Renal insufficiency ICD Codes: N28.9 - Disorder of kidney and ureter, unspecified SNOMED: 982052153, 350319178 (6) UTI (urinary tract infection) ICD Codes: N39.0 - Urinary tract infection, site not specified SNOMED: 20159527 (7) Abnormal urogenital findings ICD Codes: R89.9 - Unspecified abnormal finding in specimens from other organs , systems and tissues SNOMED: 210691638, 054096874 Status: progressing Assessment/Plan family insists on assisted living w hospice pain control encephalopathy has advanced prostatic ca w mets family wants comfort care and hospice Subjective ROS Limited/Unobtainable: Yes Allergies: Coded Allergies: No Known Allergies (Unverified , 08/27/17) Objective Last 24 Hour Vital Signs Date Time Temp Pulse Resp B/P (MAP) Pulse Ox O2 Delivery O2 Flow Rate FiO2 06/28/18 21:00 Room Air 06/28/18 20:00 92 18 Room Air 06/28/18 19:54 98.6 91 20 127/76 (93) 91 98.6 06/28/18 16:00 98.4 87 20 130/74 (92) 94 98.4 06/28/18 12:00 97.7 86 20 123/71 (88) 95 97.7 06/28/18 09:00 Room Air 06/28/18 08:00 98.2 76 20 121/79 (93) 95 98.2 06/28/18 07:35 Room Air 21 06/28/18 07:35 Room Air 21 06/28/18 04:00 98.1 81 20 115/71 (86) 91 98.1 06/28/18 00:58 Room Air 21 06/28/18 00:57 Room Air 21 06/27/18 23:36 98.4 81 20 120/74 (89) 92 98.4 Intake and Output 06/27/18 06/28/18 19:00 07:00 Intake Total 358 ml Output Total 325 ml 250 ml Balance 33 ml -250 ml Intake Oral 358 ml Output Urine Total 325 ml 250 ml # Voids 1 # Bowel Movements 3 1 Height (Feet): 6 Height (Inches): 5.00 Weight (Pounds): 165 General Appearance: lethargic, confused Yury Murray MD Jun 28, 2018 23:11
[2018-06-29] VITALS: BP 124/77
[2018-06-29] MEDS: Acetaminophen 500mg (ES) tab ORAL PRN ×2 (01:26→15:37)
[2018-06-29 04:00] VITALS: BP 127/64
[2018-06-29 08:00] VITALS: BP 124/70
[2018-06-29] MEDS: Bisacodyl EC 5mg tab ORAL SCH (09:00)
[2018-06-29] MEDS: Docusate 100mg cap ORAL SCH ×2 (09:07→17:47)
[2018-06-29 12:00] VITALS: BP 100/68
--- NOTE | 2018-06-29 15:17 | Cardiac Electrophysiology PN ---
Assessment/Plan Assessment/Plan 1. Bradycardia with high-grade AV block and 2:1 block off any AV feliciano blocking agents. The patient is DNR and Family refused pacer 2. Hypotension. Off BP meds ok 2. Metastatic prostate cancer, status post prostatectomy in August. 3. Abdominal pain under evaluation by Dr. Joel. 4. Dementia. 5. Comfort care. Hospice placement is pending DW RN at bedside. Subjective Subjective Awaiting Hospice placement. No events. RN at bedside Objective Last 24 Hour Vital Signs Date Time Temp Pulse Resp B/P (MAP) Pulse Ox O2 Delivery O2 Flow Rate FiO2 06/29/18 12:00 99.7 90 21 100/68 (79) 94 99.7 06/29/18 11:30 90 18 Room Air 21 06/29/18 09:00 Room Air 06/29/18 08:00 98.1 91 21 124/70 (88) 91 98.1 06/29/18 04:00 97.9 88 20 127/64 (85) 92 97.9 06/29/18 00:00 98.6 93 18 124/77 (93) 92 98.6 06/28/18 21:00 Room Air 06/28/18 20:00 92 18 Room Air 21 06/28/18 19:54 98.6 91 20 127/76 (93) 91 98.6 06/28/18 16:00 98.4 87 20 130/74 (92) 94 98.4 Intake and Output 06/28/18 06/29/18 18:59 06:59 Intake Total 360 ml Output Total 500 ml 400 ml Balance -140 ml -400 ml Intake Oral 360 ml Output Urine Total 500 ml 400 ml # Bowel Movements 1 2 Objective HEAD AND NECK: No JVD. LUNGS: Clear. CARDIOVASCULAR: Murali S1-S2 with no gallop or murmur. ABDOMEN: Soft. EXTREMITIES: 1+ pitting edema. Miko Reed MD Jun 29, 2018 15:17
[2018-06-29 16:08] VITALS: BP 131/76
[2018-06-29 17:18] LABS: BASOPHILS % (AUTO) 1.7 % (0.0-2.0); EOSINOPHILS % (AUTO) 0.4 % (0.0-3.0); HEMATOCRIT 36.9 % (42.0-52.0); HEMOGLOBIN 12.4 G/DL (14.2-18.0); LYMPHOCYTES % (AUTO) 10.7 % (20.0-45.0); MEAN CORPUSCULAR VOLUME 92 FL (80-99); MONOCYTES % (AUTO) 11.1 % (1.0-10.0); NEUTROPHILS % (AUTO) 76.1 % (45.0-75.0); PLATELET COUNT 354 K/UL (150-450); RED CELL DISTRIBUTION WIDTH 12.5 % (11.6-14.8); WHITE BLOOD COUNT 10.9 K/UL (4.8-10.8)
--- NOTE | 2018-06-29 18:05 | General Progress Note ---
Assessment/Plan Status: stable Assessment/Plan # Prostate cancer with extensive metastases -- extensive sclerotic lesions throughout the pelvic bones, spine, ribs, and visualized sternum, compatible with osseous metastases, significantly worsened compared to prior exam. PSA 531 , likely will be further increased as he has not received any treatment --> received prostatectomy in 08/2017 --> has progressed on multiple regimens, on hospice/cc --> talked to son 06/20/18 re prognosis, at this time on HOSPICE/COMFORT CARE --> continue to litigation counsel daily as best as possible --> onco and uro outpatient f/u --> Dr. Gonzalez outpatient f/u --> family and patient want comfort care --> IS DNR # Anemia due to malignancy --> likely worse given progression of disease --> Hgb goal above 7 --> Currently stable. # Bradycardic, second-degree AV block, Mobitz type I --> appreciate recs by Dr. Reed # UTI on abx as per pcp --> abx completed # KYMBERLY consider fluids as needed Greatly appreciate consultation! Subjective Date patient seen: Jun 29, 2018 Constitutional: Reports: fever Hematologic/Lymphatic: Reports: anemia Allergies: Coded Allergies: No Known Allergies (Unverified , 08/27/17) All Systems: reviewed and negative except above Subjective No acute events. H/H stable. temp elevated at 101.1. Family refusing CT head. Objective Last 24 Hour Vital Signs Date Time Temp Pulse Resp B/P (MAP) Pulse Ox O2 Delivery O2 Flow Rate FiO2 06/29/18 16:08 101.1 97 24 131/76 (94) 96 101.1 06/29/18 16:07 101.0 06/29/18 15:37 101.1 06/29/18 12:00 99.7 90 21 100/68 (79) 94 99.7 06/29/18 11:30 90 18 Room Air 21 06/29/18 09:00 Room Air 06/29/18 08:00 98.1 91 21 124/70 (88) 91 98.1 06/29/18 04:00 97.9 88 20 127/64 (85) 92 97.9 06/29/18 00:00 98.6 93 18 124/77 (93) 92 98.6 10/19/18 21:00 Room Air 06/28/18 20:00 92 18 Room Air 21 06/28/18 19:54 98.6 91 20 127/76 (93) 91 98.6 Intake and Output 06/28/18 06/29/18 18:59 06:59 Intake Total 360 ml Output Total 500 ml 400 ml Balance -140 ml -400 ml Intake Oral 360 ml Output Urine Total 500 ml 400 ml # Bowel Movements 1 2 Laboratory Tests 06/29/18 16:45: White Blood Count 10.9H, Red Blood Count 4.00L, Hemoglobin 12.4L, Hematocrit 36.9L, Mean Corpuscular Volume 92, Mean Corpuscular Hemoglobin 31.1H, Mean Corpuscular Hemoglobin Concent 33.7, Red Cell Distribution Width 12.5, Platelet Count 354, Mean Platelet Volume 6.9, Neutrophils (%) (Auto) 76.1H, Lymphocytes ( %) (Auto) 10.7L, Monocytes (%) (Auto) 11.1H, Eosinophils (%) (Auto) 0.4, Basophils (%) (Auto) 1.7 Height (Feet): 6 Height (Inches): 5.00 Weight (Pounds): 165 General Appearance: no apparent distress EENT: PERRL/EOMI Neck: normal alignment Cardiovascular: normal peripheral pulses Respiratory/Chest: no respiratory distress Abdomen: soft Gerard Hernandez MD Jun 29, 2018 18:05
[2018-06-29 20:00] VITALS: BP 135/81
--- NOTE | 2018-06-29 21:28 | General Progress Note ---
Assessment/Plan Problem List: (1) Anemia ICD Codes: D64.9 - Anemia, unspecified SNOMED: 400972510 (2) Abdominal pain ICD Codes: R10.9 - Unspecified abdominal pain SNOMED: 61631114 (3) Hematuria ICD Codes: R31.9 - Hematuria, unspecified SNOMED: 52749349 (4) Bradycardia ICD Codes: R00.1 - Bradycardia, unspecified SNOMED: 21759881 (5) Renal insufficiency ICD Codes: N28.9 - Disorder of kidney and ureter, unspecified SNOMED: 678930912, 406946714 (6) UTI (urinary tract infection) ICD Codes: N39.0 - Urinary tract infection, site not specified SNOMED: 61896302 (7) Abnormal urogenital findings ICD Codes: R89.9 - Unspecified abnormal finding in specimens from other organs , systems and tissues SNOMED: 483936410, 012423498 Status: progressing Assessment/Plan more confused ordered stat ct scan of brain however family refused encephalopathy has advanced prostatic ca w mets family wants comfort care and hospice Subjective ROS Limited/Unobtainable: Yes Allergies: Coded Allergies: No Known Allergies (Unverified , 08/27/17) Objective Last 24 Hour Vital Signs Date Time Temp Pulse Resp B/P (MAP) Pulse Ox O2 Delivery O2 Flow Rate FiO2 06/29/18 20:00 97.2 80 17 135/81 (99) 93 97.2 06/29/18 19:44 93 18 Room Air 21 06/29/18 18:50 98.3 98.3 06/29/18 17:00 101.0 101.0 06/29/18 16:08 101.1 97 24 131/76 (94) 96 101.1 06/29/18 16:07 101.0 06/29/18 15:37 101.1 06/29/18 12:00 99.7 90 21 100/68 (79) 94 99.7 06/29/18 11:30 90 18 Room Air 21 06/29/18 09:00 Room Air 06/29/18 08:00 98.1 91 21 124/70 (88) 91 98.1 06/29/18 04:00 97.9 88 20 127/64 (85) 92 97.9 06/29/18 00:00 98.6 93 18 124/77 (93) 92 98.6 Intake and Output 06/28/18 06/29/18 19:00 07:00 Intake Total 360 ml Output Total 500 ml 400 ml Balance -140 ml -400 ml Intake Oral 360 ml Output Urine Total 500 ml 400 ml # Bowel Movements 1 2 Laboratory Tests 06/29/18 16:45: White Blood Count 10.9H, Red Blood Count 4.00L, Hemoglobin 12.4L, Hematocrit 36.9L, Mean Corpuscular Volume 92, Mean Corpuscular Hemoglobin 31.1H, Mean Corpuscular Hemoglobin Concent 33.7, Red Cell Distribution Width 12.5, Platelet Count 354, Mean Platelet Volume 6.9, Neutrophils (%) (Auto) 76.1H, Lymphocytes ( %) (Auto) 10.7L, Monocytes (%) (Auto) 11.1H, Eosinophils (%) (Auto) 0.4, Basophils (%) (Auto) 1.7 Height (Feet): 6 Height (Inches): 5.00 Weight (Pounds): 165 General Appearance: lethargic, confused Cardiovascular: normal rate Respiratory/Chest: lungs clear Abdomen: soft Yury Murray MD Jun 29, 2018 21:28
[2018-06-30] VITALS: BP 137/80
[2018-06-30 04:00] VITALS: BP 138/69
[2018-06-30 08:00] VITALS: BP 132/81
[2018-06-30] MEDS: Bisacodyl EC 5mg tab ORAL SCH (08:22)
[2018-06-30] MEDS: Docusate 100mg cap ORAL SCH ×3 (08:22→18:00)
[2018-06-30 12:04] VITALS: BP 127/79
--- NOTE | 2018-06-30 13:22 | Infectious Diseases Prog Note ---
Assessment/Plan Assessment/Plan A; Cystitis treated Fever Metastatic prostatic cancer Bradycardia AV block Dementia P; Family refusing antibiotic Going to hospice Subjective ROS Limited/Unobtainable: Yes Constitutional: Reports: fever, other - T ggc=213 yesterday Respiratory: Reports: productive cough Allergies: Coded Allergies: No Known Allergies (Unverified , 08/27/17) Objective Vital Signs Last 24 Hour Vital Signs Date Time Temp Pulse Resp B/P (MAP) Pulse Ox O2 Delivery O2 Flow Rate FiO2 06/30/18 12:04 98.2 89 24 127/79 (95) 93 98.2 06/30/18 08:00 98.0 85 18 132/81 (98) 92 98.0 06/30/18 07:03 88 20 Room Air 21 06/30/18 04:00 97.0 77 18 138/69 (92) 95 97.0 06/30/18 00:00 97.0 82 18 137/80 (99) 94 97.0 06/29/18 20:00 97.2 80 17 135/81 (99) 93 97.2 06/29/18 19:44 93 18 Room Air 21 06/29/18 18:50 98.3 98.3 06/29/18 17:00 101.0 101.0 06/29/18 16:08 101.1 97 24 131/76 (94) 96 101.1 06/29/18 16:07 101.0 06/29/18 15:37 101.1 Height (Feet): 6 Height (Inches): 5.00 Weight (Pounds): 165 HEENT: mucous membranes moist Respiratory/Chest: lungs clear Cardiovascular: normal rate Abdomen: soft, non tender Extremities: no edema Neurologic/Psychiatric: disoriented Laboratory Tests Test 06/29/18 16:45 White Blood Count 10.9 K/UL (4.8-10.8) H Red Blood Count 4.00 M/UL (4.70-6.10) L Hemoglobin 12.4 G/DL (14.2-18.0) L Hematocrit 36.9 % (42.0-52.0) L Mean Corpuscular Volume 92 FL (80-99) Mean Corpuscular Hemoglobin 31.1 PG (27.0-31.0) H Mean Corpuscular Hemoglobin Concent 33.7 G/DL (32.0-36.0) Red Cell Distribution Width 12.5 % (11.6-14.8) Platelet Count 354 K/UL (150-450) Mean Platelet Volume 6.9 FL (6.5-10.1) Neutrophils (%) (Auto) 76.1 % (45.0-75.0) H Lymphocytes (%) (Auto) 10.7 % (20.0-45.0) L Monocytes (%) (Auto) 11.1 % (1.0-10.0) H Eosinophils (%) (Auto) 0.4 % (0.0-3.0) Basophils (%) (Auto) 1.7 % (0.0-2.0) Current Medications Medications (Trade) Dose Ordered Sig/Pancho Route PRN Reason Start Time Stop Time Status Last Admin Dose Admin Acetaminophen (Tylenol) 500 mg Q4H PRN ORAL Mild Pain/Temp > 100.5 06/25/18 23:30 07/18/18 23:29 06/29/18 15:37 Albuterol/ Ipratropium (Albuterol/ Ipratropium) 3 ml Q4H PRN HHN SOB/wheezing 06/28/18 08:45 07/03/18 08:44 Bisacodyl (Dulcolax) 10 mg DAILY ORAL 06/26/18 09:00 07/22/18 08:59 06/28/18 08:56 Docusate Sodium (Colace) 100 mg THREE TIMES A DAY ORAL 06/26/18 09:00 07/19/18 12:59 06/28/18 12:32 Glycopyrrolate (Robinul) 0.2 mg BIDPRN PRN IV excessive secretions 06/26/18 11:30 07/26/18 11:29 Guaifenesin (Robitussin) 100 mg Q4H PRN ORAL For Cough 06/26/18 02:00 07/24/18 13:55 Lorazepam (Ativan 2mg/ml 1ml) 1 mg Q4H PRN IV For Anxiety 06/26/18 11:39 07/03/18 11:38 Magnesium Hydroxide (Mom) 30 ml Q4H PRN ORAL Constipation 06/25/18 23:00 07/21/18 10:59 Sennosides (Senokot) 1 tab DAILY PRN ORAL Constipation 06/26/18 09:00 07/21/18 10:59 Mario Daigle MD Jun 30, 2018 13:22
--- NOTE | 2018-06-30 15:17 | General Progress Note ---
Assessment/Plan Status: unchanged Assessment/Plan # Prostate cancer with extensive metastases -- extensive sclerotic lesions throughout the pelvic bones, spine, ribs, and visualized sternum, compatible with osseous metastases, significantly worsened compared to prior exam. PSA 531 , likely will be further increased as he has not received any treatment --> received prostatectomy in 08/2017 --> has progressed on multiple regimens, on hospice/cc --> talked to son 06/20/18 re prognosis, at this time on HOSPICE/COMFORT CARE --> continue to sexual abuse counsellor daily as best as possible --> onco and uro outpatient f/u --> Dr. Gonzalez outpatient f/u --> family and patient want comfort care --> IS DNR # Anemia due to malignancy --> likely worse given progression of disease --> Hgb goal above 7 --> Currently stable. # Bradycardic, second-degree AV block, Mobitz type I --> appreciate recs by Dr. Reed # UTI on abx as per pcp --> Family refusing abx. # KYMBERLY consider fluids as needed Greatly appreciate consultation! Subjective Date patient seen: Jun 30, 2018 ROS Limited/Unobtainable: Yes Hematologic/Lymphatic: Reports: anemia Allergies: Coded Allergies: No Known Allergies (Unverified , 08/27/17) Subjective No acute events. H/H stable. WBC elevated, family refusing abx. Objective Last 24 Hour Vital Signs Date Time Temp Pulse Resp B/P (MAP) Pulse Ox O2 Delivery O2 Flow Rate FiO2 06/30/18 12:04 98.2 89 24 127/79 (95) 93 98.2 06/30/18 08:00 98.0 85 18 132/81 (98) 92 98.0 06/30/18 07:03 88 20 Room Air 21 06/30/18 04:00 97.0 77 18 138/69 (92) 95 97.0 06/30/18 00:00 97.0 82 18 137/80 (99) 94 97.0 06/29/18 20:00 97.2 80 17 135/81 (99) 93 97.2 06/29/18 19:44 93 18 Room Air 21 06/29/18 18:50 98.3 98.3 06/29/18 17:00 101.0 101.0 06/29/18 16:08 101.1 97 24 131/76 (94) 96 101.1 06/29/18 16:07 101.0 06/29/18 15:37 101.1 Intake and Output 06/29/18 06/30/18 19:00 07:00 Intake Total 360 ml 75 ml Output Total 400 ml 825 ml Balance -40 ml -750 ml Intake Oral 360 ml 75 ml Output Urine Total 400 ml 825 ml # Bowel Movements 1 Laboratory Tests 06/29/18 16:45: White Blood Count 10.9H, Red Blood Count 4.00L, Hemoglobin 12.4L, Hematocrit 36.9L, Mean Corpuscular Volume 92, Mean Corpuscular Hemoglobin 31.1H, Mean Corpuscular Hemoglobin Concent 33.7, Red Cell Distribution Width 12.5, Platelet Count 354, Mean Platelet Volume 6.9, Neutrophils (%) (Auto) 76.1H, Lymphocytes ( %) (Auto) 10.7L, Monocytes (%) (Auto) 11.1H, Eosinophils (%) (Auto) 0.4, Basophils (%) (Auto) 1.7 Height (Feet): 6 Height (Inches): 5.00 Weight (Pounds): 165 General Appearance: no apparent distress EENT: PERRL/EOMI Neck: normal alignment Cardiovascular: normal peripheral pulses Respiratory/Chest: no respiratory distress Abdomen: soft Gerard Hernandez MD Jun 30, 2018 15:17
[2018-06-30 16:00] VITALS: BP 126/79
[2018-06-30] MEDS: Acetaminophen 500mg (ES) tab ORAL PRN (16:07)
--- NOTE | 2018-06-30 18:30 | Cardiac Electrophysiology PN ---
Assessment/Plan Assessment/Plan 1. Bradycardia with high-grade AV block and 2:1 block off any AV feliciano blocking agents. DNR and Family refused pacer 2. Hypotension. Off BP meds ok 2. Metastatic prostate cancer, status post prostatectomy in August. 3. Abdominal pain f/u by Dr. Joel. 4. Dementia. 5. Comfort care. Hospice placement is pending Subjective Subjective Awaiting Hospice placement. No events. Objective Last 24 Hour Vital Signs Date Time Temp Pulse Resp B/P (MAP) Pulse Ox O2 Delivery O2 Flow Rate FiO2 06/30/18 17:00 98.5 98.5 06/30/18 16:37 98.5 06/30/18 16:07 100.4 06/30/18 16:00 100.4 93 26 126/79 (95) 91 100.4 06/30/18 12:04 98.2 89 24 127/79 (95) 93 98.2 06/30/18 08:00 98.0 85 18 132/81 (98) 92 98.0 06/30/18 07:03 88 20 Room Air 21 06/30/18 04:00 97.0 77 18 138/69 (92) 95 97.0 06/30/18 00:00 97.0 82 18 137/80 (99) 94 97.0 06/29/18 20:00 97.2 80 17 135/81 (99) 93 97.2 06/29/18 19:44 93 18 Room Air 21 06/29/18 18:50 98.3 98.3 Intake and Output 06/29/18 06/30/18 19:00 07:00 Intake Total 360 ml 75 ml Output Total 400 ml 825 ml Balance -40 ml -750 ml Intake Oral 360 ml 75 ml Output Urine Total 400 ml 825 ml # Bowel Movements 1 Objective HEAD AND NECK: No JVD. LUNGS: Clear. CARDIOVASCULAR: Murali S1-S2 with no gallop or murmur. ABDOMEN: Soft. EXTREMITIES: 1+ pitting edema. Miko Reed MD Jun 30, 2018 18:30
[2018-06-30 20:00] VITALS: BP 117/68
--- NOTE | 2018-06-30 21:28 | General Progress Note ---
Assessment/Plan Problem List: (1) Anemia ICD Codes: D64.9 - Anemia, unspecified SNOMED: 272360572 (2) Abdominal pain ICD Codes: R10.9 - Unspecified abdominal pain SNOMED: 82296989 (3) Hematuria ICD Codes: R31.9 - Hematuria, unspecified SNOMED: 17837482 (4) Bradycardia ICD Codes: R00.1 - Bradycardia, unspecified SNOMED: 69804302 (5) Renal insufficiency ICD Codes: N28.9 - Disorder of kidney and ureter, unspecified SNOMED: 981863408, 957524881 (6) UTI (urinary tract infection) ICD Codes: N39.0 - Urinary tract infection, site not specified SNOMED: 32835679 (7) Abnormal urogenital findings ICD Codes: R89.9 - Unspecified abnormal finding in specimens from other organs , systems and tissues SNOMED: 868708925, 549694435 Status: progressing Assessment/Plan going and following the wishes of family family wants to send him to assisted living ordered stat ct scan of brain however family refused encephalopathy has advanced prostatic ca w mets family wants comfort care and hospice Subjective ROS Limited/Unobtainable: Yes Allergies: Coded Allergies: No Known Allergies (Unverified , 08/27/17) Objective Last 24 Hour Vital Signs Date Time Temp Pulse Resp B/P (MAP) Pulse Ox O2 Delivery O2 Flow Rate FiO2 06/30/18 20:01 91 20 Room Air 21 06/30/18 20:00 97.9 78 16 117/68 (84) 95 97.9 06/30/18 17:00 98.5 98.5 06/30/18 16:37 98.5 06/30/18 16:07 100.4 06/30/18 16:00 100.4 93 26 126/79 (95) 91 100.4 06/30/18 12:04 98.2 89 24 127/79 (95) 93 98.2 06/30/18 08:00 98.0 85 18 132/81 (98) 92 98.0 06/30/18 07:03 88 20 Room Air 21 06/30/18 04:00 97.0 77 18 138/69 (92) 95 97.0 06/30/18 00:00 97.0 82 18 137/80 (99) 94 97.0 Intake and Output 06/29/18 06/30/18 18:59 06:59 Intake Total 360 ml 75 ml Output Total 400 ml 825 ml Balance -40 ml -750 ml Intake Oral 360 ml 75 ml Output Urine Total 400 ml 825 ml # Bowel Movements 1 Height (Feet): 6 Height (Inches): 5.00 Weight (Pounds): 165 Yury Murray MD Jun 30, 2018 21:28
--- NOTE | 2018-06-30 21:32 | General Progress Note ---
Assessment/Plan Status: unchanged Assessment/Plan encephalopathy psychotic d/o -Ativan 1mg iv q4hr prn agitation -the pt lacks capacity to make decisions. cbc with diff d/w daughter. Subjective Date patient seen: Jun 29, 2018 Constitutional: Reports: fever Allergies: Coded Allergies: No Known Allergies (Unverified , 08/27/17) Subjective the pt is confused and lethargic, the pt s daughter was irritated and concern. the pts daughter has concern that the facility may not take her father sunday due to fever. Objective Last 24 Hour Vital Signs Date Time Temp Pulse Resp B/P (MAP) Pulse Ox O2 Delivery O2 Flow Rate FiO2 06/30/18 20:01 91 20 Room Air 21 06/30/18 20:00 97.9 78 16 117/68 (84) 95 97.9 06/30/18 17:00 98.5 98.5 06/30/18 16:37 98.5 06/30/18 16:07 100.4 06/30/18 16:00 100.4 93 26 126/79 (95) 91 100.4 06/30/18 12:04 98.2 89 24 127/79 (95) 93 98.2 06/30/18 08:00 98.0 85 18 132/81 (98) 92 98.0 06/30/18 07:03 88 20 Room Air 21 06/30/18 04:00 97.0 77 18 138/69 (92) 95 97.0 06/30/18 00:00 97.0 82 18 137/80 (99) 94 97.0 Intake and Output 06/29/18 06/30/18 18:59 06:59 Intake Total 360 ml 75 ml Output Total 400 ml 825 ml Balance -40 ml -750 ml Intake Oral 360 ml 75 ml Output Urine Total 400 ml 825 ml # Bowel Movements 1 Height (Feet): 6 Height (Inches): 5.00 Weight (Pounds): 165 General Appearance: no apparent distress, lethargic, confused Vilma Medina MD Jun 30, 2018 21:32
[2018-07-01] VITALS: BP 128/77
[2018-07-01] MEDS: Acetaminophen 500mg (ES) tab ORAL PRN (01:20)
[2018-07-01 04:00] VITALS: BP 120/70
[2018-07-01 08:00] VITALS: BP_SYST 111; BP_SYST 138; BP_DIAS 66; BP_DIAS 71
[2018-07-01] MEDS: Docusate 100mg cap ORAL SCH ×2 (08:27→12:14)
[2018-07-01] MEDS: Bisacodyl EC 5mg tab ORAL SCH (08:27)
--- NOTE | 2018-07-01 10:49 | GI Progress Note ---
Assessment/Plan Problems: (1) Abdominal pain ICD Codes: R10.9 - Unspecified abdominal pain SNOMED: 57937783 (2) Anemia ICD Codes: D64.9 - Anemia, unspecified SNOMED: 105241265 (3) Constipation ICD Codes: K59.00 - Constipation, unspecified SNOMED: 09245644 Status: stable Status Narrative Discussed with Dr. Joel. Assessment/Plan Prostate CA s/p prostatectomy with osseous metastases video swallow today >> noted with trace aspiration supportive care / symptomatic treatment PEG if family agrees, on regular diet >> push PO fu oncology recs pain mgmt zofran prn monitor H&H, prn transfusions bowel regime ppi fu labs recommend hospice care The patient was seen and examined at bedside and all new and available data was reviewed in the patients chart. I agree with the above findings, impression and plan. (Patient seen earlier today. Signature stamp does not reflect patient encounter time.). - Rush Joel MD Subjective Subjective generalized pain Objective Last 24 Hour Vital Signs Date Time Temp Pulse Resp B/P (MAP) Pulse Ox O2 Delivery O2 Flow Rate FiO2 07/01/18 08:04 Room Air 07/01/18 08:00 98.0 84 20 111/71 (84) 97 98.0 07/01/18 08:00 98.2 78 22 138/66 (90) 97 98.2 07/01/18 07:25 83 20 Nasal Cannula 28 07/01/18 07:25 Nasal Cannula 2.0 28 07/01/18 07:25 97 Nasal Cannula 2.0 28 07/01/18 04:00 97.7 78 20 120/70 (87) 95 97.7 07/01/18 00:00 98.1 77 21 128/77 (94) 92 98.1 06/30/18 21:00 Nasal Cannula 1.5 06/30/18 20:01 91 20 Room Air 21 06/30/18 20:00 97.9 78 16 117/68 (84) 95 97.9 06/30/18 17:00 98.5 98.5 06/30/18 16:37 98.5 06/30/18 16:07 100.4 06/30/18 16:00 100.4 93 26 126/79 (95) 91 100.4 06/30/18 12:04 98.2 89 24 127/79 (84) 93 98.2 Intake and Output 06/30/18 07/01/18 19:00 07:00 Intake Total 358 ml Balance 358 ml Intake Oral 358 ml # Voids 3 Height (Feet): 6 Height (Inches): 5.00 Weight (Pounds): 165 General Appearance: WD/WN, no apparent distress, alert Cardiovascular: normal rate Respiratory/Chest: normal breath sounds, no respiratory distress Abdominal Exam: normal bowel sounds, non tender, soft Extremities: non-tender Kristi Hernandez [employer]ING SUPERINTENDENT Jul 01, 2018 10:49
[2018-07-01 11:51] VITALS: BP 118/74
--- NOTE | 2018-07-01 12:56 | Pulmonology Progress Note ---
Assessment/Plan Assessment/Plan ASSESSMENT: The patient is an 83-year-old male with metastatic prostate cancer with known osseous metastases, admitted with abdominal pain, initially concerning for UTI, now with 2-3 days of increased coughing. He does not appear infected from pulmonary standpoint. He does have history of extensive tobacco use, though has never been formally diagnosed with COPD. I suspect he has a component of bronchitis plus or minus smoker's cough. PROBLEM LIST: 1. Cough and congestion, likely secondary to bronchitis and smoker's cough. 2. Extensive former smoker without stated history of COPD. 3. Bibasilar atelectasis. 4. Metastatic prostate cancer, status post prostatectomy, who refused chemoradiation with known osseous metastases. 5. Anemia. 6. Bradycardia, AV block. 7. Abdominal pain. 8. Known osseous mets TREATMENT PLAN: COMFORT MEASURES ONLY CONTINUE O2 for COMFORT HHN's PRN MSO4, ATIVAN and ROBINUL DNAR/DNI Dispo planning to [facility] on hospice Subjective Allergies: Coded Allergies: No Known Allergies (Unverified , 08/27/17) Subjective No distress Awake Objective Last 24 Hour Vital Signs Date Time Temp Pulse Resp B/P (MAP) Pulse Ox O2 Delivery O2 Flow Rate FiO2 07/01/18 11:51 98.2 93 21 118/74 (89) 97 98.2 07/01/18 08:04 Room Air 07/01/18 08:00 98.0 84 20 111/71 (84) 97 98.0 07/01/18 08:00 98.2 78 22 138/66 (90) 97 98.2 07/01/18 07:25 83 20 Nasal Cannula 28 07/01/18 07:25 Nasal Cannula 2.0 28 07/01/18 07:25 97 Nasal Cannula 2.0 28 07/01/18 04:00 97.7 78 20 120/70 (87) 95 97.7 07/01/18 00:00 98.1 77 21 128/77 (94) 92 98.1 06/30/18 21:00 Nasal Cannula 1.5 06/30/18 20:01 91 20 Room Air 21 06/30/18 20:00 97.9 78 16 117/68 (84) 95 97.9 06/30/18 17:00 98.5 98.5 06/30/18 16:37 98.5 06/30/18 16:07 100.4 06/30/18 16:00 100.4 93 26 126/79 (71) 91 100.4 Intake and Output 06/30/18 07/01/18 19:00 07:00 Intake Total 358 ml Balance 358 ml Intake Oral 358 ml # Voids 3 General Appearance: no acute distress HEENT: normocephalic, atraumatic Respiratory/Chest: chest wall non-tender, lungs clear, normal breath sounds, no respiratory distress Cardiovascular: normal peripheral pulses, normal rate, regular rhythm Abdomen: normal bowel sounds, soft, non tender, non distended, no mass Extremities: no cyanosis, no clubbing, no edema Current Medications Medications (Trade) Dose Ordered Sig/Pancho Route PRN Reason Start Time Stop Time Status Last Admin Dose Admin Acetaminophen (Tylenol) 500 mg Q4H PRN ORAL Mild Pain/Temp > 100.5 06/25/18 23:30 07/18/18 23:29 07/01/18 01:20 Albuterol/ Ipratropium (Albuterol/ Ipratropium) 3 ml Q4H PRN HHN SOB/wheezing 06/28/18 08:45 07/03/18 08:44 Bisacodyl (Dulcolax) 10 mg DAILY ORAL 06/26/18 09:00 07/22/18 08:59 07/01/18 08:27 Docusate Sodium (Colace) 100 mg THREE TIMES A DAY ORAL 06/26/18 09:00 07/19/18 12:59 07/01/18 12:14 Glycopyrrolate (Robinul) 0.2 mg BIDPRN PRN IV excessive secretions 06/26/18 11:30 07/26/18 11:29 Guaifenesin (Robitussin) 100 mg Q4H PRN ORAL For Cough 06/26/18 02:00 07/24/18 13:55 Lorazepam (Ativan 2mg/ml 1ml) 1 mg Q4H PRN IV For Anxiety 06/26/18 11:39 07/03/18 11:38 Magnesium Hydroxide (Mom) 30 ml Q4H PRN ORAL Constipation 06/25/18 23:00 07/21/18 10:59 Sennosides (Senokot) 1 tab DAILY PRN ORAL Constipation 06/26/18 09:00 07/21/18 10:59 Neo Mei MD Jul 01, 2018 12:56
--- NOTE | 2018-07-01 13:45 | Cardiac Electrophysiology PN ---
Assessment/Plan Assessment/Plan 1. Bradycardia with high-grade AV block and 2:1 block off any AV feliciano blocking agents. DNR and Family refused pacer 2. Hypotension. Off BP meds ok 2. Metastatic prostate cancer, status post prostatectomy in August. 3. Abdominal pain f/u by Dr. Joel. 4. Dementia. 5. Comfort care. DC to Hospice pending today Subjective Subjective Being DCed to Hospice today.Daughter and RN at bedside. No events. Objective Last 24 Hour Vital Signs Date Time Temp Pulse Resp B/P (MAP) Pulse Ox O2 Delivery O2 Flow Rate FiO2 07/01/18 11:51 98.2 93 21 118/74 (89) 97 98.2 07/01/18 08:04 Room Air 07/01/18 08:00 98.0 84 20 111/71 (84) 97 98.0 07/01/18 08:00 98.2 78 22 138/66 (90) 97 98.2 07/01/18 07:25 83 20 Nasal Cannula 28 07/01/18 07:25 Nasal Cannula 2.0 28 07/01/18 07:25 97 Nasal Cannula 2.0 28 07/01/18 04:00 97.7 78 20 120/70 (87) 95 97.7 07/01/18 00:00 98.1 77 21 128/77 (94) 92 98.1 06/30/18 21:00 Nasal Cannula 1.5 06/30/18 20:01 91 20 Room Air 21 06/30/18 20:00 97.9 78 16 117/68 (84) 95 97.9 06/30/18 17:00 98.5 98.5 06/30/18 16:37 98.5 06/30/18 16:07 100.4 06/30/18 16:00 100.4 93 26 126/79 (95) 91 100.4 Intake and Output 06/30/18 07/01/18 19:00 07:00 Intake Total 358 ml Balance 358 ml Intake Oral 358 ml # Voids 3 Objective HEAD AND NECK: No JVD. LUNGS: Clear. CARDIOVASCULAR: Murali S1-S2 with no gallop or murmur. ABDOMEN: Soft. EXTREMITIES: 1+ pitting edema. Miko Reed MD Jul 01, 2018 13:45
--- NOTE | 2018-07-01 16:01 | General Progress Note ---
Assessment/Plan Status: stable Assessment/Plan # Prostate cancer with extensive metastases -- extensive sclerotic lesions throughout the pelvic bones, spine, ribs, and visualized sternum, compatible with osseous metastases, significantly worsened compared to prior exam. PSA 531 , likely will be further increased as he has not received any treatment --> received prostatectomy in 08/2017 --> has progressed on multiple regimens, on hospice/cc --> talked to son 06/20/18 re prognosis, at this time on HOSPICE/COMFORT CARE --> continue to deputy county counsel daily as best as possible --> onco and uro outpatient f/u --> Dr. Gonzalez outpatient f/u --> family and patient want comfort care --> IS DNR # Anemia due to malignancy --> likely worse given progression of disease --> Hgb goal above 7 --> Currently stable. # Bradycardic, second-degree AV block, Mobitz type I --> appreciate recs by Dr. Reed # UTI on abx as per pcp --> Family refusing abx. # KYMBERLY consider fluids as needed Greatly appreciate consultation! Subjective Date patient seen: Jul 01, 2018 Hematologic/Lymphatic: Reports: anemia Allergies: Coded Allergies: No Known Allergies (Unverified , 08/27/17) All Systems: reviewed and negative except above Subjective No acute events. VS stable. DC planning. Objective Last 24 Hour Vital Signs Date Time Temp Pulse Resp B/P (MAP) Pulse Ox O2 Delivery O2 Flow Rate FiO2 07/01/18 11:51 98.2 93 21 118/74 (89) 97 98.2 07/01/18 08:04 Room Air 07/01/18 08:00 98.0 84 20 111/71 (84) 97 98.0 07/01/18 08:00 98.2 78 22 138/66 (90) 97 98.2 07/01/18 07:25 83 20 Nasal Cannula 28 07/01/18 07:25 Nasal Cannula 2.0 28 07/01/18 07:25 97 Nasal Cannula 2.0 28 07/01/18 04:00 97.7 78 20 120/70 (87) 95 97.7 07/01/18 00:00 98.1 77 21 128/77 (94) 92 98.1 06/30/18 21:00 Nasal Cannula 1.5 06/30/18 20:01 91 20 Room Air 21 06/30/18 20:00 97.9 78 16 117/68 (84) 95 97.9 06/30/18 17:00 98.5 98.5 06/30/18 16:37 98.5 06/30/18 16:07 100.4 06/30/18 16:00 100.4 93 26 126/79 (95) 91 100.4 Intake and Output 06/30/18 07/01/18 19:00 07:00 Intake Total 358 ml Balance 358 ml Intake Oral 358 ml # Voids 3 Height (Feet): 6 Height (Inches): 5.00 Weight (Pounds): 165 General Appearance: no apparent distress EENT: PERRL/EOMI Neck: normal alignment Cardiovascular: normal peripheral pulses Respiratory/Chest: no respiratory distress Abdomen: soft Gerard Hernandez MD Jul 01, 2018 16:01
--- NOTE | 2018-07-02 00:16 | General Progress Note ---
Assessment/Plan Status: stable Assessment/Plan encephalopathy psychotic d/o -Ativan 1mg iv q4hr prn agitation -the pt lacks capacity to make decisions. d/w daughter. Subjective Date patient seen: Jul 01, 2018 Neurologic/Psychiatric: Reports: anxiety Allergies: Coded Allergies: No Known Allergies (Unverified , 08/27/17) Subjective the pt is confused , the pt s daughter was irritated Objective Last 24 Hour Vital Signs Date Time Temp Pulse Resp B/P (MAP) Pulse Ox O2 Delivery O2 Flow Rate FiO2 07/01/18 11:51 98.2 93 21 118/74 (89) 97 98.2 07/01/18 08:04 Room Air 07/01/18 08:00 98.0 84 20 111/71 (84) 97 98.0 07/01/18 08:00 98.2 78 22 138/66 (90) 97 98.2 07/01/18 07:25 83 20 Nasal Cannula 28 07/01/18 07:25 Nasal Cannula 2.0 28 07/01/18 07:25 97 Nasal Cannula 2.0 28 07/01/18 04:00 97.7 78 20 120/70 (87) 95 97.7 Intake and Output 07/01/18 07/02/18 18:59 06:59 Intake Total 480 ml Balance 480 ml Intake Oral 480 ml # Bowel Movements 1 Height (Feet): 6 Height (Inches): 5.00 Weight (Pounds): 165 General Appearance: no apparent distress, alert, confused Vilma Medina MD Jul 02, 2018 00:16
--- NOTE | 2018-07-02 12:44 | Discharge Summary ---
Discharge Summary Discharge Summary _ DATE OF ADMISSION: 06/18/2018 DATE OF DISCHARGE: 07/01/2018 REASON FOR ADMISSION: 83 years old male with past medical history of prostate cancer, status post prostatectomy ( in August 2017, but refused chemotherapy and radiation), dementia, presented for evaluation due to complaints of dysuria, hematuria and abdominal pain. Upon evaluation vital signs revealed bradycardia, heart rate in 40th. EKG showed second-degree AV Block with Mobitz type I. Urinalysis with evidence of hematuria and pyuria. No leukocytosis. Hemoglobin 11.8, hematocrit 33.6. BUN 32 creatinine 1.8. Lactic acid 0.8. Chest x-ray revealed patchy basilar infiltrates versus scar versus atelectasis . Patient admitted with diagnoses of metastatic prostate cancer, bradycardia with high grade AV block , probable UTI hematuria, renal insufficiency. CONSULTANTS: digester operator Dr. eRed pulmonary Dr. Mei ID specialist Dr. Carranza GI specialist Dr. Joel wood tile installation helper Dr. Coronado granite countertop installer/oncologist Dr. Hernandez psychiatrist HOSPITAL COURSE: Patient initially admitted to telemetry floor. Cardiology consult was requested. Patient was off any AV feliciano blocking agents. Per patient's son , patient declined pacemaker. Patient at that time was still full code. Patient was also hypotensive, and was off all antihypertensive medications. IV fluids provided, Echocardiogram revealed preserved ejection fraction of 55% ,grade 2 diastolic dysfunction. Heart rate somehow improved, no bradycardia upon discharge. Regional Recruiter closely followed . Patient with cough and congestion, extensive former smoker ( without known history of COPD) , likely secondary to bronchitis and smoker cough. Supplemental oxygen provided as needed to keep pulse oximetry above 92%. Pulmonary toilet provided around the clock and as needed with bronchodilators. Patient was mobilized as tolerated. Antitussive provided with Mucinex and Robitussin as needed. Follow-up chest x-ray revealed abnormal right 6th rib. Metastatic neoplasm or myeloma would be present. Patient was observed for any signs of respiratory infection . DVT prophylaxis provided . Infectious disease specialist followed. Patient was on treatment for cystitis. Blood and untied culture were negative. Bedside swallow evaluation revealed moderate dysphagia . Diet downgraded as per speech therapist recommendations with strict aspiration / reflux precautions. PSA significantly elevated -. 571 . CA-19-9 negative. Healthcare Associate /oncologist closely followed. recommended comfort care, given that patient and family were declining further care. On code status was changed to DNR/DNI as per family and patient wishes. Hemoglobin and hematocrit were closely monitored with goal to keep hemoglobin above 7. Patient had anemia likely secondary to malignancy. Anemia workup was consistent with anemia of chronic disease. Patient initially exhibited acute on chronic renal failure . Payment was on IV fluids. Pressure Testing Technician closely followed with close monitoring of renal parameters and electrolytes. Nephrotoxins were avoided. Electrolytes corrected as needed. GI specialist closely followed. Family declined on PEG placement. Recommended push oral fluids. Mill Order Scheduler's recommendations implemented in plan of care. Pain management addressed as needed . Supportive care provided . Bowel regimen instituted. Antiemetics were on board as needed . PPI continued. Psychiatry seen and evaluated the patient, and stated that the patient lacked capacity to make decisions. Further care was discussed with family , who opted fro comfort end of life care . Patient was subsequently transferred to halfway facility FINAL DIAGNOSES: Metastatic prostate cancer with known osseous metastasis Status post prostatectomy (August 2017) Bradycardia with second-degree AV block Mobitz type I Encephalopathy Cystitis Acute on chronic renal failure -resolved Likely bronchitis with cough and congestion History of smoking Bibasilar atelectasis Anemia due to malignancy Encephalopathy Psychotic disorder Dementia Dysphagia Constipation Abdominal pain Comfort care DISCHARGE MEDICATIONS: See Medication Reconciliation list. DISCHARGE INSTRUCTIONS: Patient was discharged to the halfway facility with end of life care. Follow up with medical doctor at the facility. I have been assigned to dictate discharge summary for this account. I was not involved in the patient's management. Leann Reaves NP Jul 02, 2018 12:44
== END 2018-07-01 14:30 | disposition home or self-care (01) | DRG 690 ==
LOC: EMR 17:43 → 2E 18:03 → EDBEDREQ 19:05 → 4E 06-25 21:33
DX: N30.91 Cystitis, unspecified with hematuria (principal); C79.51 Secondary malignant neoplasm of bone; N17.9 Acute kidney failure, unspecified; G93.40 Encephalopathy, unspecified; J98.11 Atelectasis; F03.91 Unspecified dementia, unspecified severity, with behavioral disturbance; Z51.5 Encounter for palliative care; Z85.46 Personal history of malignant neoplasm of prostate; Z90.79 Acquired absence of other genital organ(s); R00.1 Bradycardia, unspecified; Z66 Do not resuscitate; I44.1 Atrioventricular block, second degree; I12.9 Hypertensive chronic kidney disease with stage 1 through stage 4 chronic kidney disease, or unspecified chronic kidney disease; N18.9 Chronic kidney disease, unspecified; J40 Bronchitis, not specified as acute or chronic; D63.0 Anemia in neoplastic disease; F29 Unspecified psychosis not due to a substance or known physiological condition; R13.10 Dysphagia, unspecified; K59.00 Constipation, unspecified; R10.9 Unspecified abdominal pain; E86.0 Dehydration; I95.9 Hypotension, unspecified; Z87.891 Personal history of nicotine dependence
CPT/HCPCS: 36415; 36600; 51702; 71045; 74176; 80048; 80053; 80061; 81003; 82607; 82728; 82746; 82803; 82962; 82977; 83540; 83550; 83605; 83735; 83880; 84100; 84153; 84439; 84443; 84484; 84550; 85025; 85610; 85730; 86140; 87040; 87086; 93005; 93306; 94640; 94664; 94760; 96365; 99291; J7620